=== PATIENT | female | born 1940 | race Caucasian/White ===

== ENCOUNTER 2016-12-24 10:24 | Emergency (ER) | payer MEDICARE, OTHER ==
[2016-12-24 11:24] LABS: APPEARANCE CLEAR (CLEAR); BILIRUBIN NEGATIVE (NEGATIVE); COLOR STRAW (YELLOW); GLUCOSE NEGATIVE (NEGATIVE); KETONE NEGATIVE (NEGATIVE); LEUKOCYTE ESTERASE 1+ (NEGATIVE); NITRITE NEGATIVE (NEGATIVE); PROTEIN NEGATIVE (NEGATIVE); SPECIFIC GRAVITY 1.015 (1.005-1.020); UROBILINOGEN NORMAL (NORMAL)
[2016-12-24 11:25] LABS: BACTERIA FEW /hpf (NONE SEEN); EPITHELIAL CELLS 0-5 /hpf (0-5); RED CELLS - URINE NONE SEEN /hpf (0-5); WHITE CELLS - URINE 0-5 /hpf (0-5)
[2016-12-24 11:53] LABS: BASOPHILS 0.2 % (0.0-2.0); EOSINOPHILS 2.4 % (0-7); HEMATOCRIT 34.6 % (36.0-48.0); HEMOGLOBIN 11.1 g/dL (12-16); IMMATURE GRANULOCYTES 0.2 % (0-5); LYMPHOCYTES 35.5 % (15-50); MCH 30.3 pg (26.0-34.0); MCHC 32.1 g/dL (31.0-37.0); MCV 94.5 fL (80.0-100.0); MONOCYTES 7.9 % (2-11); NEUTROPHILS 53.8 % (40-80); PLATELET COUNT 266 10x3/uL (130-400); RBC 3.66 10x6/uL (4.00-5.40); RDW 13.3 % (11.5-14.5); WBC 6.6 10x3/uL (4.8-10.8)
[2016-12-24 12:05] LABS: ALBUMIN 3.5 g/dL (3.4-5.0); BILIRUBIN - TOTAL 0.41 mg/dL (0.2-1.3); CALCIUM 8.4 mg/dL (8.5-10.1); CREATININE - SERUM 1.3 mg/dL (0.6-1.3); PROTEIN - SERUM 6.8 g/dL (6.4-8.2)
[2016-12-24 12:15] LABS: THYROID STIMULATING HORMONE 1.76 uIU/mL (0.36-3.74)
== END 2016-12-24 12:14 | disposition home or self-care (01) ==
LOC: D.ER 10:24
PROVIDERS: Emergency Medicine; Physician Assistant Medical
DX: R68.83 Chills (without fever) (principal); I73.9 Peripheral vascular disease, unspecified; M51.26 Other intervertebral disc displacement, lumbar region; F41.9 Anxiety disorder, unspecified; F32.9 Major depressive disorder, single episode, unspecified

== ENCOUNTER 2016-12-26 07:42 | Emergency (ER) | payer MEDICARE, OTHER ==
[2016-12-26] MEDS ORDERED: SYNTHROID75 MCG PO (13:12)
[2016-12-26] MEDS ORDERED: TRIMETHOPRIM100 MG PO (13:13)
[2016-12-26 15:38] VITALS: BMI 29.8
== END 2016-12-26 10:08 | disposition other institution (70) ==
LOC: D.ER 07:42
DX: F03.91 Unspecified dementia, unspecified severity, with behavioral disturbance (principal); F32.9 Major depressive disorder, single episode, unspecified; G47.30 Sleep apnea, unspecified; I73.9 Peripheral vascular disease, unspecified

== ENCOUNTER 2016-12-26 10:15 | Inpatient (IN) | payer MEDICARE, OTHER ==
[~2016-12-26] VITALS: Ht 160 cm; Wt 76.5 kg
--- NOTE | 2016-12-26 10:30 | NUR ---
Arrived to floor( from home with spouse to ED.) from ED per W/C, alert and oriented to name,place and time, althoug she kept forgetting the year. patient states she is here because " I keep having chills, It starts at 4:30 in the morning and I have to walk around until around 11:00 to warm up." Patient spouse present, states that patient had packed up here clothing yesterday and " taking a trip." she then attempted to drive to [place]. States history of dementia" but, do I look and act like I have Dementia, I'm on my computer everyday." Consent forms signed, cooperative with assessment. Ambulatory. Admission handbook given to family with intrustions given. All questions answered and spouse verbalized understanding of information.
[2016-12-26 12:42] LABS: APPEARANCE CLEAR (CLEAR); BILIRUBIN NEGATIVE (NEGATIVE); COLOR YELLOW (YELLOW); GLUCOSE NEGATIVE (NEGATIVE); KETONE SMALL mg/dL (NEGATIVE); LEUKOCYTE ESTERASE 1+ (NEGATIVE); NITRITE NEGATIVE (NEGATIVE); PROTEIN NEGATIVE (NEGATIVE); SPECIFIC GRAVITY 1.015 (1.005-1.020); UROBILINOGEN NORMAL (NORMAL)
[2016-12-26 12:44] LABS: BACTERIA FEW /hpf (NONE SEEN); EPITHELIAL CELLS 0-5 /hpf (0-5); RED CELLS - URINE 0-5 /hpf (0-5)
[2016-12-26] MEDS ORDERED: SYNTHROID75 MCG PO (13:12)
[2016-12-26] MEDS ORDERED: TRIMETHOPRIM100 MG PO (13:13)
--- NOTE | 2016-12-26 15:30 | NUR ---
Patient was seen per MD, and has requested to be discharged home. Spouse here to pick her up. Discharge instructions given to follow up with PCP, patient and spouse verbalized they have medications at home. Discharged without any incident.
[2016-12-26 15:38] VITALS: BP 126/75; Ht 160 cm; Wt 76.5 kg
--- NOTE | 2016-12-27 14:14 | PSY ---
PATIENT NAME:DEVIN MABRY MEDICAL RECORD: [id number] : 40 LOCATION:[facility] ADMISSION DATE: 12/26/16 ACCOUNT: [id number] PSYCHIATRIC EVALUATION DATE OF EVALUATION: 12/26/16 IDENTIFYING DATA: The patient is 76 years old and she is admitted to the hospital on a voluntary basis. CHIEF COMPLAINT: Agitation. HISTORY OF PRESENT ILLNESS: The patient was brought to the hospital because of some agitated and confused behavior at home. She says she came to the hospital because her feet were cold. The patient was seen in the Emergency Room and apparently has an established diagnosis of dementia, which she strongly refused and apparently she has had some trouble with some intermittent agitation at home which she also strongly refused. She insists that she has been lied to or more accurately mislead about where she was going and that she never would have agreed to come to this kind of facility had she known it was going to be this. She was told that it was a behavioral unit that she was being admitted to, but she apparently did not understand that there were locked doors, restricted visitation hours and requirements to stay in the day room and participate in activities along with no phone or television in her room. She says that this is completely unacceptable and that she demands to leave the hospital. She denies that she would seek to harm herself or others. She denies psychotic symptoms. PAST MEDICAL HISTORY: Significant for hypothyroidism. PAST PSYCHIATRIC HISTORY: Significant for an established diagnosis of dementia from the [facility]. FAMILY HISTORY: Unknown. SOCIAL HISTORY: The patient is . Apparently, she worked for the [employer]. 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 The patient is and has adult children. She does not want to be here as mentioned above. She denies substance abuse. MENTAL STATUS EXAMINATION: With some difficulty, the patient was found to be oriented to person, place and somewhat to time and situation. Her mood is anxious. Her affect is constricted. Thought processes are circumstantial. Her memory, concentration and abstraction abilities are at least mildly impaired, probably moderately impaired and she denies any active intent to harm herself or others as well as overt psychotic symptoms. ASSESSMENT: AXIS I: Dementia, probably Alzheimer's in nature. AXIS II: None. AXIS III: Hypothyroidism. AXIS IV: Moderate stressors. AXIS V: Global assessment of functioning is 40. PLAN: At this time, the patient has good preservation of verbal skills. She is not as intact as she initially presents. I would like to have her tested by Dr. Gabriela Cochran and would like to start her on some cholinesterase inhibiting medications, but she does not want to do this. She wants to be treated on an outpatient basis. Burke specifically excludes dementia as a diagnosis under which I can involuntarily hospitalize her. She does not meet the criteria for involuntary hospitalization and that she is not homicidal or suicidal, and is not gravely disabled except from the fact that she needs supervision. Once again, an exclusionary criteria for the ____. At this point, even though I would like her to stay in the hospital, I have no alternative, but to release her unless her family is able to get guardianship or produce guardianship papers. If they do produce guardianship papers I will be happy to keep her or readmit her, but at this point, she cannot be hospitalized here and treated involuntarily because of the circumstances mentioned above. She is willing to go to outpatient appointments, I think that is appropriate. Apparently, the family has brought her to the Emergency Room several times in the past few weeks because of the confused behavior at home. I think the situation is problematic, but again I have no basis on which I can legitimately keep her here if she does not want to stay. TRANSINT:[id number] Voice Confirmation ID: [id number] DOCUMENT ID: [id number] MIKI MORALES MD at 1414 CC: [id number] DICTATION DATE: 12/26/161424 COLLAR BASTER: 12/26/16 1524 DIS IN 12/26/16 [id number] [place] [address]
--- NOTE | 2016-12-29 12:38 | DS ---
PATIENT:DEVIN MABRY :40 MEDICAL RECORD: [id number] DISCHARGE SUMMARY ADMISSION DATE: 12/26/16 DISCHARGE DATE: 12/26/16 Psychiatric Discharge Summary IDENTIFYING DATA: The patient is 76 years old and she was admitted to the hospital on a voluntary basis from the Emergency Room. The patient had come to the Emergency Room because of some agitation and confusion. She said that she was brought to the Emergency Room because her feet were cold. The patient was in the Emergency Room and known to have an established diagnosis of dementia, which she strongly refused and the family was indicating that she was having intermittent agitation, which she also strongly denied. The patient was subsequently referred to the behavioral unit for evaluation of these behavior problems, but when she arrived here and saw me, she demanded to go home. HOSPITAL COURSE: The patient was admitted to the hospital and partially evaluated from both medical, psychological, and social standpoint. The patient indicated that she was not told this was a behavioral unit, which is not true. She said she was not told that she would not have a television in her room and that the doors would be locked and that visitation would be restricted and that she would be required to spend most of her time in the day room, engaged in activities as opposed to being in her room in bed. That may well be true. The patient denied that she would seek to harm herself or others. She was insistent that she be released and could not be convinced to stay on her own. The patient was subsequently discharged. 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 AXIS II: None. AXIS III: Hypothyroidism. AXIS IV: Moderate stressors. AXIS V: Global assessment of functioning is 45. PLAN: At the time of discharge, the patient was in good behavioral control. She was not having any active thoughts of harming herself or others. She was generally tolerating her medications well. Unfortunately, she was not willing to stay and be fully evaluated. She is willing to go to outpatient appointments for this and she and the family were assisted in this. Also, her who is an attorney lawyer understands the commitment laws and he is going to try to obtain guardianship and if he can do that, I would be happy to readmit her and complete her evaluation. At this point, all I can say is she does have cognitive impairment, it appears to be Alzheimer's and that she does not meet criteria for an involuntary commitment. TRANSINT:[id number] Voice Confirmation ID: [id number] DOCUMENT ID: [id number] DISCHARGE SUMMARY REPORT [id number] DEVIN MABRY PETER MD at 1238 CC: [id number] DICTATION DATE: 12/28/16 1400 PRECINCT POLICE CAPTAIN: 12/29/16 0106 DIS IN 12/26/16 [address] [place] [address]
== END 2016-12-26 15:30 | disposition home or self-care (01) | DRG 57 ==
LOC: D.PSYCH 10:15
PROVIDERS: ADMIT Psychiatry & Neurology Psychiatry
DX: G30.1 Alzheimer's disease with late onset (principal); F02.80 Dementia in other diseases classified elsewhere, unspecified severity, without behavioral disturbance, psychotic disturbance, mood disturbance, and anxiety; E03.9 Hypothyroidism, unspecified

== ENCOUNTER 2018-03-19 16:57 | Inpatient (IN) | payer MEDICARE, OTHER ==
[~2018-03-19] VITALS: Ht 162.6 cm; Wt 75.0 kg
--- NOTE | ~2018-03-19 | PN ---
PATIENT:DEVIN MABRY MEDICAL RECORD: [id number] LOCATION:[facility]112 ADMISSION DATE: 03/19/18 PROGRESS NOTE DATE OF SERVICE: 03/22/2018 SUBJECTIVE: The patient's case was discussed with staff. She has no new complaint. OBJECTIVE: The patient denies intent to harm herself or others. She tolerates her medicines well. She has severe short-term memory impairment. The patient was fairly agitated last night and required some p.r.n. medication. She has no recollection of these events. I am going to give her a low dose of trazodone to assist with sleep consolidation. I strongly suspect that she is going to need placement as the sundowning and confused agitated behavior is not something I would anticipate her would be able to handle. TRANSINT:[id number] Voice Confirmation ID: [id number] DOCUMENT ID: [id number] MIKI MORALES MD at 1203 CC: [id number] DICTATION DATE: 03/22/18 1338 DRIVER SALES: 03/22/18 1357 ADM IN [facility] [address] [place] [address]
--- NOTE | ~2018-03-19 | PN ---
PATIENT:DEVIN MABRY MEDICAL RECORD: [id number] LOCATION:[facility]112 ADMISSION DATE: 03/19/18 PROGRESS NOTE DATE OF SERVICE: 03/26/2018 SUBJECTIVE: The patient's case was discussed with staff. She has no new complaint. OBJECTIVE: The patient denies intent to harm herself or others. She has been in good behavioral control. ASSESSMENT: No change in diagnoses. PLAN: The patient's Prozac is going to be discontinued. I am going to increase the dose of Effexor for its antidepressant effect. The patient scored a 13/30 on the mental status testing indicating a severe range of impairment. This is lower than I would have expected as her social skills and verbal skills are strangely preserved. I am going to recommend the family take her to the [facility] for adult day care. There will also be recommendations regarding safety measures around the house. TRANSINT:[id number] Voice Confirmation ID: [id number] DOCUMENT ID: [id number] MIKI MORALES MD at 1019 CC: [id number] DICTATION DATE: 03/26/18 1244 ACCOUNTING OFFICE MANAGER: 03/26/18 1321 ADM IN [facility] [address] [place] [address]
--- NOTE | ~2018-03-19 | PN ---
PATIENT:DEVIN MABRY MEDICAL RECORD: [id number] LOCATION:[facility]112 ADMISSION DATE: 03/19/18 PROGRESS NOTE DATE OF SERVICE: 03/21/2018 SUBJECTIVE: The patient's case was discussed with staff. She has no new complaint. OBJECTIVE: The patient is oriented to person and place and somewhat to time and situation. Her mood is euthymic. Her affect is appropriate. Thought processes are circumstantial. Memory, concentration and abstraction abilities are mildly impaired and she denies any intent to harm herself or others as well as overt psychotic symptoms. ASSETS: Supportive family members. LIABILITIES: Limited insight. DIAGNOSTIC IMPRESSION: Senile dementia of the Alzheimer's type with behavioral disturbances. PLAN: The patient will be started on Namenda at a dose of 2.5 mg twice daily. Namenda is being used to treat her underlying cognitive impairment. She will be monitored for clinical changes associated with its use. Her long-term prognosis is guarded. TRANSINT:[id number] Voice Confirmation ID: [id number] DOCUMENT ID: [id number] MIKI MORALES MD at 1327 CC: [id number] DICTATION DATE: 03/21/18 1257 RODENT EXTERMINATOR: 03/21/18 1316 ADM IN [address] [place] [address]
--- NOTE | ~2018-03-19 | PN ---
PATIENT:DEVIN MABRY MEDICAL RECORD: [id number] LOCATION:[facility]112 ADMISSION DATE: 03/19/18 PROGRESS NOTE DATE OF SERVICE: 03/30/2018 SUBJECTIVE: The patient's case was discussed with staff. She has no new complaint. OBJECTIVE: The patient denies intent to harm herself or others. She generally tolerates her medicines well. She is significantly impaired. 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 ASSESSMENT: No change in diagnoses. PLAN: Current medicines have been reviewed and will be maintained. Her long-term prognosis is guarded. Plans are being made for her discharge. These include the senior proofing the house and making arrangements for her to go to the caring place. TRANSINT:[id number] Voice Confirmation ID: [id number] DOCUMENT ID: [id number] MIKI MORALES MD at 2007 CC: [id number] DICTATION DATE: 03/30/18 1209 ULTRASONIC SEAMING MACHINE OPERATOR: 03/30/18 1229 ADM IN [place] [address] [place] [id number]
--- NOTE | ~2018-03-19 | PN ---
PATIENT:DEVIN MABRY MEDICAL RECORD: [id number] LOCATION:[facility]112 ADMISSION DATE: 03/19/18 PROGRESS NOTE DATE OF SERVICE: 03/27/2018 SUBJECTIVE: The patient's case was discussed with staff. She has no new complaint. OBJECTIVE: The patient is in good behavioral control with limited insight about her condition. She generally tolerates her medicines well. She has had some paranoid thoughts that are clearly delusional. She has no recollection of these when I mentioned them to her. ASSESSMENT: No change in diagnoses. PLAN: Current medicines and therapies have been reviewed and will be maintained. Long-term prognosis is guarded. TRANSINT:[id number] Voice Confirmation ID: [id number] DOCUMENT ID: [id number] MIKI MORALES MD at 1301 CC: [id number] DICTATION DATE: 03/27/18 1354 LABORER STEEL HANDLING: 03/27/18 1402 ADM IN [place] [place] [address]
--- NOTE | ~2018-03-19 | PSY ---
PATIENT NAME:DEVIN MABRY MEDICAL RECORD: [id number] : 40 LOCATION:[facility]9 ADMISSION DATE: 03/19/18 ACCOUNT: [id number] PSYCHIATRIC EVALUATION DATE OF EVALUATION: 03/20/18 IDENTIFYING DATA: The patient is 77 years old and she is admitted to the hospital on a voluntary basis. CHIEF COMPLAINT: None. HISTORY OF PRESENT ILLNESS: The patient is a very nice elderly woman with a history of dementia. She has had increasing confusion in recent weeks and has become increasingly difficult to redirect. The problem became so acute that yesterday, the patient's took her to the Emergency Room where she was evaluated and admitted to the behavioral unit. The patient has little or no recollection of what happened. She is very polite and outgoing and talkative, but it is all a front to cover her confusion. She becomes easily flustered when asked questions that require some memory and actually becomes a little angry when asked about questions of orientation involving date, time, and so forth. PAST MEDICAL HISTORY: Significant for hypothyroidism and hyperlipidemia. PAST PSYCHIATRIC HISTORY: Significant for dementia. FAMILY HISTORY: Unknown. SOCIAL HISTORY: The patient is and has 1 adult son and no grandchildren. She is a nondrinker and nonsmoker. 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 She has no history of drug or alcohol abuse. MENTAL STATUS EXAMINATION: The patient is awake, alert and oriented to person and place, but not to time or situation. In fact, her orientation to place is intermittent, as apparently earlier today she believes she was in [place] and was wanting to get back to [place]. Her mood is flat. Her affect is appropriate. Thought processes are disorganized. Short term memory is severely impaired. Long-term memory appears to be at least mildly impaired. She is concrete to abstraction. Her concentration is fair. She denies any intent to harm herself or others and denies any psychotic symptoms. ASSETS: Supportive family members. LIABILITIES: Limited insight. DIAGNOSTIC IMPRESSION: AXIS I: Senile dementia of the Alzheimer's type with behavioral disturbances. AXIS II: None. AXIS III: 1. Hypothyroidism. 2. Hyperlipidemia. AXIS IV: Moderate stressors. AXIS V: Global assessment of functioning is 30. PLAN: At this time, the patient is admitted to the hospital for a comprehensive medical, psychological, and social evaluation. She will be treated with both mood stabilizing and memory enhancing medications. Her long-term prognosis is guarded. TRANSINT:[id number] Voice Confirmation ID: [id number] DOCUMENT ID: [id number] MIKI MORALES MD at 1249 CC: [id number] DICTATION DATE: 03/20/18 1519 TREATING ENGINEER HELPER: 03/20/18 1533 ADM IN [place] [address] [place] [id number]
--- NOTE | ~2018-03-19 | PN ---
PATIENT:DEVIN MABRY MEDICAL RECORD: [id number] LOCATION:[facility] German112 ADMISSION DATE: 03/19/18 PROGRESS NOTE DATE OF SERVICE: 04/03/2018 SUBJECTIVE: The patient's case was discussed with staff. She has no new complaint. OBJECTIVE: The patient is in good behavioral control with limited insight about her condition. ASSESSMENT: No change in diagnoses. PLAN: Supportive and educational interventions were made. The patient is not acutely dangerous and can be transitioned out of the hospital today. Followup will be with her primary care physician. TRANSINT:[id number] Voice Confirmation ID: [id number] DOCUMENT ID: [id number] MIKI MORALES MD at 1236 CC: [id number] DICTATION DATE: 04/03/18 1319 COLORING ROOM MAN: 04/03/18 1354 DIS IN 04/03/18 [address] [place] [address]
--- NOTE | ~2018-03-19 | PN ---
PATIENT:DEVIN MABRY MEDICAL RECORD: [id number] LOCATION:[facility]112 ADMISSION DATE: 03/19/18 PROGRESS NOTE DATE OF SERVICE: 04/01/2018 SUBJECTIVE: The patient's case was discussed with staff. She has no new complaint. OBJECTIVE: The patient is in good behavioral control with limited insight about her condition. She tolerates her medicines well. ASSESSMENT: No change in diagnoses. PLAN: I anticipate the patient can be transitioned out of the hospital soon. Her long-term prognosis is guarded. TRANSINT:[id number] Voice Confirmation ID: [id number] DOCUMENT ID: [id number] MIKI MORALES MD at 1407 CC: [id number] DICTATION DATE: 04/01/18 1138 EXTENSION DIVISION DIRECTOR: 04/01/18 1438 ADM IN [facility] [address] [place] [address]
--- NOTE | ~2018-03-19 | DS ---
PATIENT:DEVIN MABRY :40 MEDICAL RECORD: [id number] DISCHARGE SUMMARY ADMISSION DATE: 03/19/18 DISCHARGE DATE: 04/03/18 IDENTIFYING DATA: The patient is 77 years old and she was admitted to the hospital on a voluntary basis. The patient has an established diagnosis of dementia. She had become increasingly confused in recent weeks and was difficult to redirect. The problem had become so acute that her took her to the Emergency Room to be evaluated. The patient was very polite and cooperative, but had no recollection of her agitation or confusion. HOSPITAL COURSE: The patient was admitted to the hospital and fully evaluated from both a medical, psychological, and social standpoint. She was treated with both mood stabilizing and memory enhancing medications. She did show improvement through the course of her hospitalization and was subsequently discharged home. DISCHARGE DIAGNOSES: AXIS I: Senile dementia of the Alzheimer's type with behavioral disturbances. AXIS II: None. AXIS III: Hypothyroidism, hyperlipidemia. AXIS IV: Moderate stressors. AXIS V: Global Assessment of Functioning is 35. PLAN: At the time of discharge, the patient was in good behavioral control and had no evidence of acute or direct dangerousness to herself or others. She was tolerating her medications well. Followup is to be with her primary care physician. Her long-term prognosis is guarded. TRANSINT:[id number] Voice Confirmation ID: [id number] DOCUMENT ID: [id number] MIKI MORALES MD at 1521 CC: [id number] DICTATION DATE: 04/05/18 1345 FORGE HEATER: 04/05/187 DIS IN 04/03/18 [address] [place] [address]
--- NOTE | ~2018-03-19 | PN ---
PATIENT:DEVIN MABRY MEDICAL RECORD: [id number] LOCATION:[facility]112 ADMISSION DATE: 03/19/18 PROGRESS NOTE DATE OF SERVICE: 03/31/2018 SUBJECTIVE: The patient's case was discussed with staff. She has no new complaint. OBJECTIVE: The patient is in good behavioral control with limited insight about her condition. She tolerates her medicines well. ASSESSMENT: No change in diagnoses. PLAN: Supportive and educational interventions were made. Skilled Nursing prognosis is guarded. TRANSINT:[id number] Voice Confirmation ID: [id number] DOCUMENT ID: [id number] MIKI MORALES MD at 1101 CC: [id number] DICTATION DATE: 03/31/18 1201 RADIAL DRILL OPERATOR FOR PLASTIC: 03/31/18 2258 ADM IN [place] [address] [place] [address]
--- NOTE | ~2018-03-19 | PN ---
PATIENT:DEVIN MABRY MEDICAL RECORD: [id number] LOCATION:[facility]112 ADMISSION DATE: 03/19/18 PROGRESS NOTE DATE OF SERVICE: 03/28/2018 SUBJECTIVE: The patient's case was discussed with staff. She has no new complaint. OBJECTIVE: The patient is in good behavioral control with limited insight about her condition. She tolerates her medicines well. ASSESSMENT: No change in diagnoses. PLAN: The patient is better today. If this level of improvement is maintained, I anticipate she can be transitioned out of the hospital soon. TRANSINT:[id number] Voice Confirmation ID: [id number] DOCUMENT ID: [id number] MIKI MORALES MD at 1244 CC: [id number] DICTATION DATE: 03/28/18 1313 NURSE MIDWIFE: 03/28/18 1317 ADM IN [place] [address] [place] [address]
--- NOTE | ~2018-03-19 | PN ---
PATIENT:DEVIN MABRY MEDICAL RECORD: [id number] LOCATION:[facility]112 ADMISSION DATE: 03/19/18 PROGRESS NOTE DATE OF SERVICE: 04/02/2018 SUBJECTIVE: The patient's case was discussed with staff. She has no new complaint. OBJECTIVE: The patient is in good behavioral control with limited insight about her condition. She tolerates her medicines well. ASSESSMENT: No change in diagnoses. PLAN: Brief supportive and educational interventions were made. Long-term prognosis is guarded. I anticipate she can be transitioned out of the hospital tomorrow if this level of improvement is maintained. TRANSINT:[id number] Voice Confirmation ID: [id number] DOCUMENT ID: [id number] MIKI MORALES MD at 1236 CC: [id number] DICTATION DATE: 04/02/18 1444 TRAVEL ACCOMMODATIONS RATER: 04/02/18 1603 DIS IN 04/03/18 [id number] [place] [address]
--- NOTE | ~2018-03-19 | PN ---
PATIENT:EDVIN MABRY MEDICAL RECORD: [id number] LOCATION:[facility]112 ADMISSION DATE: 03/19/18 PROGRESS NOTE DATE OF SERVICE: 03/23/2018 SUBJECTIVE: No new complaint. OBJECTIVE: The patient is very pleasant on approach. She greets the examiner warmly. Affect is bland and pleasant. Speech is fairly fluent. Content of thought is negative for overt psychosis. Sensorium shows no change. ASSESSMENT: No change in diagnosis. PLAN: 1. Continue current medication. 2. Continue supportive therapy. TRANSINT:[id number] Voice Confirmation ID: [id number] DOCUMENT ID: [id number] DENITA WATSON III, MD at 0530 CC: [id number] DICTATION DATE: 03/23/18 1200 ARMHOLE BASTER HAND: 03/23/18 1304 ADM IN [place] [address] [place] [address]
--- NOTE | ~2018-03-19 | PN ---
PATIENT:DEVIN MABRY MEDICAL RECORD: [id number] LOCATION:R[facility]112 ADMISSION DATE: 03/19/18 PROGRESS NOTE DATE OF SERVICE: 03/29/2018 SUBJECTIVE: The patient's case was discussed with staff. She has no new complaint. OBJECTIVE: The patient denies intent to harm herself or others. She is tolerating her medicines well. She is sleeping reasonably well. ASSESSMENT: No change in diagnoses. PLAN: The patient will be maintained on current medicines, which I have reviewed. Her long-term prognosis is guarded. Supportive and educational interventions were made. TRANSINT:[id number] Voice Confirmation ID: [id number] DOCUMENT ID: [id number] MIKI MORALES MD at 1159 CC: [id number] DICTATION DATE: 03/29/18 1259 BOX COVERER HAND: 03/29/18 1314 ADM IN [place] [id number] [place] [id number]
[~2018-03-19 16:57] MED LIST: SYNTHROID75 MCG PO; TRIMETHOPRIM100 MG PO
[2018-03-19 18:08] LABS: APPEARANCE CLEAR (CLEAR); BILIRUBIN NEGATIVE (NEGATIVE); COLOR YELLOW (YELLOW); EPITHELIAL CELLS 0-5 /hpf (0-5); GLUCOSE NEGATIVE (NEGATIVE); KETONE NEGATIVE (NEGATIVE); NITRITE NEGATIVE (NEGATIVE); PROTEIN NEGATIVE (NEGATIVE); RED CELLS - URINE 0-5 /hpf (0-5); SPECIFIC GRAVITY 1.025 (1.005-1.020); UROBILINOGEN NORMAL (NORMAL)
[2018-03-19 18:09] LABS: BACTERIA MODERATE /hpf (NONE SEEN)
[2018-03-19 18:25] LABS: BASOPHILS 0.2 % (0-2); HEMATOCRIT 36.8 % (36.0-48.0); IMMATURE GRANULOCYTES 0.3 % (0-5); LYMPHOCYTES 34.4 % (15-50); MCH 30.8 pg (26.0-34.0); MCHC 32.6 g/dL (31.0-37.0); MCV 94.6 fL (80.0-100.0); MEAN PLATELET VOLUME 9.1 fL (7.4-10.4); MONOCYTES 6.4 % (2-11); NEUTROPHILS 55.7 % (40-80); PLATELET COUNT 301 10x3/uL (130-400); RBC 3.89 10x6/uL (4.00-5.40); WBC 9.4 10x3/uL (4.8-10.8)
[2018-03-19 18:47] LABS: ALBUMIN 3.7 g/dL (3.4-5.0); ANION GAP 13.7 mmol/L (8-16); BILIRUBIN - TOTAL 0.26 mg/dL (0.2-1.3); CALCIUM 8.9 mg/dL (8.5-10.1); CARBON DIOXIDE 28.4 mmol/L (21.0-32.0); CREATININE - SERUM 1.3 mg/dL (0.6-1.3); POTASSIUM - SERUM 4.1 mmol/L (3.5-5.1); PROTEIN - SERUM 7.6 g/dL (6.4-8.2)
[2018-03-19 18:57] LABS: THYROID STIMULATING HORMONE 1.03 uIU/mL (0.36-3.74)
[2018-03-20] MEDS ORDERED: PRAVASTATIN SOD10 MG PO (01:20)
[2018-03-20] MEDS ORDERED: EFFEXOR XR150 MG PO (01:21)
[2018-03-20] MEDS ORDERED: LEVOXYL88 MC1 PO (01:22)
[2018-03-20 07:53] LABS: CHOL - HDL RATIO 3.9 ratio (2.3-4.1); LDL-HDL RATIO 2.5 ratio (1.5-3.5); THYROID STIMULATING HORMONE 1.19 uIU/mL (0.36-3.74)
[2018-03-20 10:20] VITALS: BP 122/82
[2018-03-20 11:45] VITALS: BMI 28.3
[2018-03-20 22:23] VITALS: BP 173/83
[2018-03-21 07:32] LABS: RAPID PLASMA REAGIN Non Reactive (Non Reactive)
[2018-03-21 08:25] LABS: FOLATE (FOLIC ACID) - SERUM 12.5 ng/mL (>3.0)
[2018-03-21 09:45] VITALS: BP 124/72
[2018-03-21 10:21] LABS: VITAMIN D 25 HYDROXY 14.3 ng/mL (30.0-100.0)
[2018-03-21 20:05] VITALS: BP 142/77
[2018-03-22 08:42] VITALS: BP 140/79
[2018-03-22 19:21] VITALS: BP 149/74
[2018-03-23 08:34] VITALS: BP 147/78
[2018-03-23 19:47] VITALS: BP 147/59
[2018-03-24 09:10] VITALS: BP 126/84
[2018-03-24 19:18] VITALS: BP 157/82
[2018-03-25 07:00] VITALS: BP 149/78
[2018-03-25 18:56] VITALS: BP 161/79
[2018-03-26 07:00] VITALS: BP 164/76
[2018-03-26 19:43] VITALS: BP 164/87
[2018-03-27 21:16] VITALS: BP 151/84
[2018-03-28 10:40] VITALS: BP 188/97
[2018-03-28 19:45] VITALS: BP 146/81
[2018-03-29 09:06] VITALS: BP 138/86
[2018-03-29 21:12] VITALS: BP 154/80
[2018-03-30 08:13] VITALS: BP 142/82
[2018-03-30 19:30] VITALS: BP 124/58
[2018-03-31 10:34] VITALS: BP 156/62
[2018-03-31 20:46] VITALS: BP 152/77
[2018-04-01 07:00] VITALS: BP 125/90
[2018-04-01 18:45] VITALS: BP 143/86
[2018-04-02 07:00] VITALS: BP 145/65
[2018-04-02] MEDS ORDERED: NAMENDA5 MG PO (14:42)
[2018-04-02] MEDS ORDERED: PERPHENAZINE2 MG PO (14:42)
[2018-04-02] MEDS ORDERED: TRAZODONE HCL50 MG PO (14:42)
[2018-04-02 20:31] VITALS: BP 156/74
[2018-04-03 09:40] VITALS: BP 146/89
[2018-04-03 10:15] VITALS: Ht 162.6 cm; Wt 75.0 kg
== END 2018-04-03 11:10 | disposition home or self-care (01) | DRG 57 ==
LOC: D.ER 16:57 → D.PSYCH 20:05 → D.EDHOLD 20:05 → D.PSYCH 20:09
PROVIDERS: Physician Assistant; Psychiatry & Neurology Psychiatry
DX: G30.1 Alzheimer's disease with late onset (principal); F02.81 Dementia in other diseases classified elsewhere, unspecified severity, with behavioral disturbance; F41.8 Other specified anxiety disorders; E03.9 Hypothyroidism, unspecified; E78.5 Hyperlipidemia, unspecified; E11.9 Type 2 diabetes mellitus without complications; R82.71 Bacteriuria

== ENCOUNTER 2018-08-07 22:58 | Inpatient (IN) | payer MEDICARE, OTHER ==
[~2018-08-07] VITALS: Ht 157.5 cm; Wt 77.2 kg
--- NOTE | ~2018-08-07 | PN ---
PATIENT:DEVIN MABRY MEDICAL RECORD: [id number] LOCATION:[facility] ADMISSION DATE: 08/08/18 PROGRESS NOTE DATE OF SERVICE: 08/25/2018 SUBJECTIVE: The patient's case was discussed with staff. She has no new complaint. OBJECTIVE: The patient seems a little sedated to me. I talked to a couple of the nurses' aids and the charge nurse, who said no, but I think she is sedated. It has been 4 days since she has had a p.r.n. for agitated behavior. She is significantly impaired cognitively. ASSESSMENT: No change in diagnoses. PLAN: The patient will be treated with current medicines, but I am going to reduce the dose of the Klonopin slightly. TRANSINT:[id number] Voice Confirmation ID: [id number] DOCUMENT ID: [id number] MIKI MORALES MD at 1241 CC: [id number] DICTATION DATE: 08/25/18 1432 MECHANICAL APPLICATIONS ENGINEER: 08/25/18 1457 ADM IN [address] [place] [address]
--- NOTE | ~2018-08-07 | PN ---
PATIENT:DEVIN MABRY MEDICAL RECORD: [id number] LOCATION:[facility] ADMISSION DATE: 08/08/18 PROGRESS NOTE DATE OF SERVICE: 08/20/2018 SUBJECTIVE: The patient's case was discussed with staff. She has no new complaint. OBJECTIVE: The patient continues to receive p.r.n. medications for agitation. I did increase her Trilafon yesterday. I am going to put her on a scheduled dose of Klonopin today to assist with her anxiety. ASSESSMENT: No change in diagnoses. PLAN: As mentioned above, the patient will begin receiving a scheduled dose of Klonopin. She will be monitored for sedation associated with it. Her is still unsure about where he is going to care for her. He is concerned about the financial impact, which is reasonable, although he is having a great deal of guilt about such feelings. At the same time, he has shown twice that he is really not able to handle her at home. TRANSINT:[id number] Voice Confirmation ID: [id number] DOCUMENT ID: [id number] MIKI MORALES MD at 1223 CC: [id number] DICTATION DATE: 08/20/18 1446 ROUTE DELIVERY MANAGER: 08/20/18 1640 ADM IN [id number] [place] [address]
--- NOTE | ~2018-08-07 | PN ---
PATIENT:DEVIN MABRY MEDICAL RECORD: [id number] LOCATION:[facility] ADMISSION DATE: 08/08/18 PROGRESS NOTE DATE OF SERVICE: 09/01/2018 SUBJECTIVE: The patient's case was discussed with staff. She has no new complaint. OBJECTIVE: The patient ate reasonably well and slept reasonably well. She did not require p.r.n. medication last night. ASSESSMENT: No change in diagnoses. PLAN: Current medicines have been reviewed. She will be maintained on them and I anticipate that she can be transitioned out of the hospital soon. TRANSINT:[id number] Voice Confirmation ID: [id number] DOCUMENT ID: [id number] MIKI MORALES MD at 1017 CC: [id number] DICTATION DATE: 09/01/18 1105 COARSE WIRE DRAWER: 09/01/18 [address] [facility] [address] [place] [address]
--- NOTE | ~2018-08-07 | PN ---
PATIENT:DEVIN MABRY MEDICAL RECORD: [id number] LOCATION:[facility] ADMISSION DATE: 08/08/18 PROGRESS NOTE DATE OF SERVICE: 08/17/2018 SUBJECTIVE: The patient's case was discussed with staff. She has no new complaint. OBJECTIVE: The patient is in good behavioral control with limited insight about her condition. She generally tolerates her medicines well. ASSESSMENT: No change in diagnoses. PLAN: Current medicines have been reviewed and will be maintained. Her long-term prognosis is guarded. The is now considering a snf or more accurately he has been considering it this whole hospitalization, but he tends to waffle back and forth. I understand this is a very difficult decision, but I really do not think he is capable of managing her and her behaviors at home. TRANSINT:[id number] Voice Confirmation ID: [id number] DOCUMENT ID: [id number] MIKI MORALES MD at 0926 CC: [id number] DICTATION DATE: 08/17/18 1040 WASH HELPER: 08/17/18 1057 ADM IN [facility] [address] [place] [address]
--- NOTE | ~2018-08-07 | PN ---
PATIENT:DEVIN MABRY MEDICAL RECORD: [id number] LOCATION:[facility] ADMISSION DATE: 08/08/18 PROGRESS NOTE DATE OF SERVICE: 08/15/2018 SUBJECTIVE: The patient's case was discussed with staff. She has no new complaint. OBJECTIVE: The patient denies intent to harm herself or others. She has been much calmer with the addition of a low dose of Ativan. ASSESSMENT: No change in diagnoses. PLAN: The patient did not require any p.r.n. medication yesterday. She is very appropriate for shelter and I have concerns about the ability of her to manage her at home. There will be a family meeting to discuss this issue. TRANSINT:[id number] Voice Confirmation ID: [id number] DOCUMENT ID: [id number] MIKI MORALES MD at 0951 CC: [id number] DICTATION DATE: 08/15/18913 ANTISUBMARINE WEAPONS OFFICER: 08/15/18 1156 ADM IN [facility] [address] [place] [address]
--- NOTE | ~2018-08-07 | PN ---
PATIENT:DEVIN MABRY MEDICAL RECORD: [id number] LOCATION:[facility] ADMISSION DATE: 08/08/18 PROGRESS NOTE DATE OF SERVICE: 08/14/2018 SUBJECTIVE: The patient's case was discussed with staff. She has no new complaint. OBJECTIVE: The patient is in good behavioral control with limited insight about her condition. She does tolerate her medicines well. ASSESSMENT: No change in diagnoses. PLAN: The patient is significantly confused. She apparently does not feel well. She has had a chest x-ray, which shows some chronic old changes, but no evidence of an acute process. She has been prescribed a decongestant. Her behavior has been acceptable today, but I suspect that is not really related to an improvement in her underlying behavior problem, but more associated with the fact that she just simply does not feel well. TRANSINT:[id number] Voice Confirmation ID: [id number] DOCUMENT ID: [id number] MIKI MORALES MD at 0846 CC: [id number] DICTATION DATE: 08/14/18 1428 GROUP COUNSELOR: 08/14/18 1434 ADM IN [facility] [address] [place] [address]
--- NOTE | ~2018-08-07 | PN ---
PATIENT:DEVIN MABRY MEDICAL RECORD: [id number] LOCATION:[facility] ADMISSION DATE: 08/08/18 PROGRESS NOTE DATE OF SERVICE: 09/03/2018 SUBJECTIVE: The patient's case was discussed with staff. She has no new complaint. OBJECTIVE: The patient is in good behavioral control. She has limited insight about her condition. She is tolerating her medications reasonably well. She does have some agitation at times, but seems to be more redirectable than she previously has been. ASSESSMENT: No change in diagnoses. PLAN: Current medicines have been reviewed and will be maintained. I am going to increase her Namenda to 10 mg twice daily. Her long-term prognosis is guarded. If arrangements have been made for her outpatient treatment and housing, I am going to look at discharging her probably tomorrow. TRANSINT:[id number] Voice Confirmation ID: [id number] DOCUMENT ID: [id number] MIKI MORALES MD at 0946 CC: [id number] DICTATION DATE: 09/03/18 1034 MUCKER OPERATOR: 09/03/18 1052 ADM IN [facility] [address] [place] [address]
--- NOTE | ~2018-08-07 | PN ---
PATIENT:DEVIN MABRY MEDICAL RECORD: [id number] LOCATION:[facility] ADMISSION DATE: 08/08/18 PROGRESS NOTE DATE OF SERVICE: 08/24/2018 SUBJECTIVE: The patient's case was discussed with staff. She has no new complaint. OBJECTIVE: The patient denies intent to harm herself or others. She tolerates her medicines well. ASSESSMENT: No change in diagnoses. PLAN: Supportive and educational interventions were made. Long-term prognosis is guarded. The patient has not been p.r.n.'d for 3 days. I am going to discontinue her bedtime dose of trazodone as I no longer think it is necessary. Unless she becomes excessively sedated, I am probably going to leave the dose of her other medicines as they are. TRANSINT:[id number] Voice Confirmation ID: [id number] DOCUMENT ID: [id number] MIKI MORALES MD at 1421 CC: [id number] DICTATION DATE: 08/24/18 1235 MUSICAL INSTRUMENT SUPERVISOR: 08/24/18 1240 ADM IN [facility] [address] [place] [address]
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
--- NOTE | ~2018-08-07 | DS ---
PATIENT:DEVIN MABRY :40 MEDICAL RECORD: [id number] DISCHARGE SUMMARY ADMISSION DATE: 08/08/18 DISCHARGE DATE: 09/05/18 IDENTIFYING DATA: The patient is 78 years old and she was admitted to the hospital on a voluntary basis because of aggression. The patient has a known history of dementia and was actually treated here for similar behaviors earlier this year. She was taken home to live with her against recommendations. The patient presented to the Emergency Room this time after the was unable to handle her and she was quite aggressive. She was admitted for evaluation and treatment of these symptoms. HOSPITAL COURSE: The patient was admitted to the hospital and evaluated from both a medical, psychological, and social standpoint. She was found to be severely demented and was in severe behavioral dyscontrol. She was frequently delusional, agitated, and aggressive and throughout the course of this long hospitalization required numerous p.r.n. medications for agitation. With some difficulty combinations of various medicines were tried with either no success or untolerable side effects such as sedation being precipitated. Finally, a reasonable balance between these 2 issues was found and she was transitioned to an assisted living center. I suspect she is going to require more care than the assisted living center can provide, but at the time of discharge, she was not acutely or directly dangerous. DISCHARGE DIAGNOSES: AXIS I: Senile dementia of the Alzheimer's type with behavioral disturbances. AXIS II: None. AXIS III: Hypothyroidism, hyperlipidemia. AXIS IV: Moderate stressors. AXIS V: Global assessment of functioning is 35. PLAN: At the time of discharge, the patient was in good behavioral control. She had limited insight about her condition. She was tolerating her medicines well and followup is to be with her primary care physician. TRANSINT:[id number] Voice Confirmation ID: [id number] DOCUMENT ID: [id number] MIKI MORALES MD at 2015 CC: [id number] DICTATION DATE: 09/07/18 1050 RN MENTAL HEALTH: 09/07/18 1402 DIS IN 09/05/18 [place] [address]
--- NOTE | ~2018-08-07 | PSY ---
PATIENT NAME:DEVIN MABRY MEDICAL RECORD: [id number] : 40 LOCATION:[facility] ADMISSION DATE: 08/08/18 ACCOUNT: [id number] PSYCHIATRIC EVALUATION DATE OF EVALUATION: 08/08/18 IDENTIFYING DATA: The patient is 78 years old and she is known to me from previous clinical contact. CHIEF COMPLAINT: Aggression. HISTORY OF PRESENT ILLNESS: The patient has a known history of dementia and was treated here earlier this year. She was taken home to live with her , which was against the recommendations that we made then. The patient represents to the Emergency Room after her was unable to handle her. Apparently, she becomes quite confused at home. She does not recognize her and she tells me today that she was brought to the hospital because she was not in her house, even though everyone was telling her it was her house. She has been significantly confused and often believes her is someone, else not her . She has been aggressive and agitated with her family. PAST MEDICAL HISTORY: Significant for hypothyroidism and hyperlipidemia. PAST PSYCHIATRIC HISTORY: Significant for one previous hospitalization here about 5 months ago. The patient has no other history of psychiatric problems including substance abuse or outpatient treatment. FAMILY HISTORY: Negative for psychiatric disease by the patient's report, which is unreliable. ALLERGIES: CEPHALEXIN AND LEVOFLOXACIN. CURRENT MEDICATIONS: Include Protonix, Synthroid, Effexor, trazodone, Trilafon, Namenda, Pravachol and Macrodantin. SOCIAL HISTORY: The patient is and has one adult son and no grandchildren. She is a nondrinker and nonsmoker. 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 MENTAL STATUS EXAMINATION: The patient is awake, alert and oriented to person, but not to place, time or situation. Her mood is euthymic. Her affect is appropriate. Thought processes are disorganized with severe short-term memory impairment and at least moderate impairment of her long-term memory. She is concrete to abstraction and her concentration is fair. She denies intent to harm herself or others as well as overt psychotic symptoms. ASSETS: Supportive family members. LIABILITIES: Limited insight. DIAGNOSTIC IMPRESSION: AXIS I: Senile dementia of the Alzheimer's type with behavioral disturbances. AXIS II: None. AXIS III: Hypothyroidism, hyperlipidemia. AXIS IV: Moderate stressors. AXIS V: Global assessment of functioning is 30. PLAN: At this time, the patient is admitted to the hospital for a comprehensive medical, psychological, and social evaluation. She will be treated with both mood stabilizing and memory enhancing medications. Her long-term prognosis is guarded. TRANSINT:[id number] Voice Confirmation ID: [id number] DOCUMENT ID: [id number] MIKI MORALES MD at 1127 CC: [id number] DICTATION DATE: 08/08/18 1004 CORN SHREDDER: 08/08/18 1108 ADM IN [facility] [address] [place] [address]
--- NOTE | ~2018-08-07 | PN ---
PATIENT:DEVIN MABRY MEDICAL RECORD: [id number] LOCATION:[facility] ADMISSION DATE: 08/08/18 PROGRESS NOTE DATE OF SERVICE: 08/23/2018 SUBJECTIVE: The patient's case was discussed with staff. She has no new complaint. OBJECTIVE: The patient denies intent to harm herself or others. She generally tolerates her medicines well. She at times becomes quite confused and difficult to redirect, but she has not required a p.r.n. medication for more than 24 hours. I am encouraged by this and I think it is related to the changes I made in her previous medication regimen. If this level of improvement continues, I anticipate she can be transitioned out of the hospital soon. TRANSINT:[id number] Voice Confirmation ID: [id number] DOCUMENT ID: [id number] MIKI MORALES MD at 1212 CC: [id number] DICTATION DATE: 08/23/18 1043 YARD GENERAL CAR SUPERVISOR: 08/23/18 1102 ADM IN [place] [id number] [place] [address]
--- NOTE | ~2018-08-07 | PN ---
PATIENT:DEVIN MABRY MEDICAL RECORD: [id number] LOCATION:[facility] ADMISSION DATE: 08/08/18 PROGRESS NOTE DATE OF SERVICE: 08/27/2018 SUBJECTIVE: The patient's case was discussed with staff. She has no new complaint. OBJECTIVE: The patient had some significant owning behavior yesterday. She has no recollection of this. She is calm and cooperative today. ASSESSMENT: No change in diagnoses. PLAN: The patient's Cymbalta will be increased slightly. She has tolerated the initial dose very well. Her long-term prognosis is guarded. TRANSINT:[id number] Voice Confirmation ID: [id number] DOCUMENT ID: [id number] MIKI MORALES MD at 0924 CC: [id number] DICTATION DATE: 08/27/18 1029 NUTRITION INTERN: 08/27/18 1135 ADM IN [facility] [address] [place] [address]
--- NOTE | ~2018-08-07 | PN ---
PATIENT:DEVIN MABRY MEDICAL RECORD: [id number] LOCATION:[facility] ADMISSION DATE: 08/08/18 PROGRESS NOTE DATE OF SERVICE: 09/02/2018 SUBJECTIVE: The patient's case was discussed with staff. She has no new complaint. OBJECTIVE: The patient denies intent to harm herself or others. She generally tolerates her medicines well. ASSESSMENT: No change in diagnoses. PLAN: Supportive and educational interventions were made. Long-term prognosis is guarded. TRANSINT:[id number] Voice Confirmation ID: [id number] DOCUMENT ID: [id number] MIKI MORALES MD at 1017 CC: [id number] DICTATION DATE: 09/02/18 1256 OPHTHALMIC PATHOLOGIST: 09/02/18 1319 ADM IN [place] [address] [place] [address]
--- NOTE | ~2018-08-07 | PN ---
PATIENT:DEVIN MABRY MEDICAL RECORD: [id number] LOCATION:[facility] ADMISSION DATE: 08/08/18 PROGRESS NOTE DATE OF SERVICE: 08/31/2018 SUBJECTIVE: The patient's case was discussed with staff. She has no new complaint. OBJECTIVE: The patient denies intent to harm herself or others. She is in good behavioral control, but impaired cognitively. Last night, she was very agitated and anxious. She thought she was at taoism and wanted to go home. She did not receive p.r.n. medication, but it was once again one of those situations where she easily could have received it and it could have been easily justified. ASSESSMENT: No change in diagnoses. PLAN: Current medicines have been reviewed. I am going to increase the Cymbalta to 40 mg daily. Her long-term prognosis is guarded. It is my hope that she can be transitioned to assisted living soon. TRANSINT:[id number] Voice Confirmation ID: [id number] DOCUMENT ID: [id number] MIKI MORALES MD at 1043 CC: [id number] DICTATION DATE: 08/31/18 1005 BRAKE SPECIALIST: 08/31/18 1011 ADM IN [address] [place] [address]
--- NOTE | ~2018-08-07 | PN ---
PATIENT:DEVIN MABRY MEDICAL RECORD: [id number] LOCATION:[facility] ADMISSION DATE: 08/08/18 PROGRESS NOTE DATE OF SERVICE: 09/04/2018 SUBJECTIVE: The patient's case was discussed with staff. She has no new complaint. OBJECTIVE: The patient is more awake and alert today. She has not been significantly agitated. ASSESSMENT: No change in diagnoses. PLAN: The patient has probably reached maximum hospital benefit. It seems that I cannot do anything further to assist her with her behaviors without causing sedation. She does require constant redirection. The and son do not want her placed in a intermediate. They have arranged for assisted living. The assisted living center has evaluated her and accepted her. It is my opinion that her condition is more advanced, but it is not terribly unreasonable to allow her a chance there. There is a possibility that she could be injured, but its fairly remote and I would be happy to be mistaken about this and see her in a less restrictive environment, but it is not my recommendation. The decision to place her in assisted living instead of in a intermediate certainly does not rise to the level of contacting adult protective services and so I am going to go ahead and transition her out of the hospital tomorrow. Followup will be with her primary care physician. Her prognosis is quite guarded for the reasons I explained above. TRANSINT:[id number] Voice Confirmation ID: [id number] DOCUMENT ID: [id number] MIKI MORALES MD at 0909 CC: [id number] DICTATION DATE: 09/04/18 1001 TEAM LEAD: 09/04/18 1107 ADM IN [address] [place] [address]
--- NOTE | ~2018-08-07 | PN ---
PATIENT:DEVIN MABRY MEDICAL RECORD: [id number] LOCATION:[facility] ADMISSION DATE: 08/08/18 PROGRESS NOTE DATE OF SERVICE: 08/21/2018 SUBJECTIVE: The patient's case was discussed with staff. She has no new complaint. OBJECTIVE: The patient denies intent to harm herself or others. She generally tolerates her medicines well. ASSESSMENT: No change in diagnoses. PLAN: Current medicines have been reviewed and will be maintained. I am encouraged by the patient not receiving p.r.n. medication today. TRANSINT:[id number] Voice Confirmation ID: [id number] DOCUMENT ID: [id number] MIKI MORALES MD at 0922 CC: [id number] DICTATION DATE: 08/21/18 1241 LEARNING OFFICER: 08/21/18 1245 ADM IN [facility] [address] [place] [address]
--- NOTE | ~2018-08-07 | PN ---
PATIENT:DVEIN MABRY MEDICAL RECORD: [id number] LOCATION:[facility] ADMISSION DATE: 08/08/18 PROGRESS NOTE DATE OF SERVICE: 08/18/2018 SUBJECTIVE: The patient's case was discussed with staff. She has no new complaint. OBJECTIVE: The patient is in good behavioral control with limited insight about her condition. She does tolerate her medicines well. She was very confused last night. She did not require any p.r.n. medication, which is the first time in at least 3 or 4 days. I am encouraged by this. I think the medication she is on may be becoming effective and I have reviewed them and will maintain them as they are. TRANSINT:[id number] Voice Confirmation ID: [id number] DOCUMENT ID: [id number] MIKI MORALES MD at 1054 CC: [id number] DICTATION DATE: 08/18/18 0939 SPINNER HAND: 08/18/18 1104 ADM IN [id number] [place] [address]
--- NOTE | ~2018-08-07 | PN ---
PATIENT:DEVIN MABRY MEDICAL RECORD: [id number] LOCATION:[facility] ADMISSION DATE: 08/08/18 PROGRESS NOTE DATE OF SERVICE: 08/30/2018 SUBJECTIVE: The patient's case was discussed with staff. She has no new complaint. OBJECTIVE: The patient is actually calmer. She is not showing excessive sedation with the increase in her Klonopin. Her is looking at the [facility]. She has been told this, she became upset. She has now forgotten about it and thinks she is going home. I expect that soon, probably after the weekend, he will have made arrangements for her to go to the facility. In the meantime, I am going to maintain her current medicines, and supportive and educational interventions were made. TRANSINT:[id number] Voice Confirmation ID: [id number] DOCUMENT ID: [id number] MIKI MORALES MD at 0954 CC: [id number] DICTATION DATE: 08/30/18 1314 ELEVATED MOTORMAN: 08/30/18 1323 ADM IN [facility] [address] [place] [address]
--- NOTE | ~2018-08-07 | PN ---
PATIENT:DEVIN MABRY MEDICAL RECORD: [id number] LOCATION:[facility] ADMISSION DATE: 08/08/18 PROGRESS NOTE DATE OF SERVICE: 08/12/2018 SUBJECTIVE: The patient's case was discussed with staff. She has no new complaint. OBJECTIVE: The patient is angry. She is angry for reasons that I do not understand. I cannot understand them because she is not explaining things in a way that is coherent and understandable. She is clearly distressed, but again I cannot follow what she is upset about because it does not make any sense. ASSESSMENT: No change in diagnoses. PLAN: I am going to give the patient a low dose of Ativan to help with her underlying anxiety. She will be monitored for clinical changes associated with its use. TRANSINT:[id number] Voice Confirmation ID: [id number] DOCUMENT ID: [id number] MIKI MORALES MD at 1100 CC: [id number] DICTATION DATE: 08/12/18 1113 RUG SHAMPOOER: 08/12/18 1343 ADM IN [address] [place] [address]
--- NOTE | ~2018-08-07 | PN ---
PATIENT:DEVIN MABRY MEDICAL RECORD: [id number] LOCATION:[facility] ADMISSION DATE: 08/08/18 PROGRESS NOTE DATE OF SERVICE: 08/09/2018 SUBJECTIVE: The patient's case was discussed with staff. She has no new complaint. OBJECTIVE: The patient is in good behavioral control and has not been aggressive today. ASSESSMENT: No change in diagnoses. PLAN: The patient will be maintained on current medicines, which I have reviewed. Her long-term prognosis is guarded. Brief supportive and educational interventions were made. TRANSINT:[id number] Voice Confirmation ID: [id number] DOCUMENT ID: [id number] MIKI MORALES MD at 1612 CC: [id number] DICTATION DATE: 08/09/18 1159 CONTROL PANEL ASSEMBLER: 08/09/18 1214 ADM IN [place] [place] [address]
--- NOTE | ~2018-08-07 | PN ---
PATIENT:DEVIN MABRY MEDICAL RECORD: [id number] LOCATION:RISA German112 ADMISSION DATE: 08/08/18 PROGRESS NOTE DATE OF SERVICE: 08/26/2018 SUBJECTIVE: The patient's case was discussed with staff. She has no new complaint. OBJECTIVE: The patient was somewhat agitated yesterday. Today, she is calmer and has no recollection of what happened yesterday. The events yesterday did not result in her receiving a p.r.n., but it was somewhat close or guarded. She is tolerating her Effexor well. Her son, who works as a director social welfare in mental health, would like her changed to Cymbalta. He thinks she is primarily depressed. I do not think she is depressed, but I do have her on an antidepressant medicine. I think her primary problem is dementia. I know the family is struggling with her condition. I see no harm in giving her the Cymbalta, after all I am already giving her a different antidepressant, so I am going to change her to the Cymbalta and I do hope it helps, but that is not what I think is going to happen. I do not think it will make any difference, but I am happy to try it. TRANSINT:[id number] Voice Confirmation ID: [id number] DOCUMENT ID: [id number] MIKI MORALES MD at 0930 CC: [id number] DICTATION DATE: 08/26/18 1247 FISH RECEIVER: 08/26/18 1434 ADM IN [facility] [address] [place] [address]
--- NOTE | ~2018-08-07 | PN ---
PATIENT:DEVIN MABRY MEDICAL RECORD: [id number] LOCATION:RISA German112 ADMISSION DATE: 08/08/18 PROGRESS NOTE DATE OF SERVICE: 08/10/2018 SUBJECTIVE: The patient's case was discussed with staff. She has no new complaint. OBJECTIVE: The patient was extremely agitated and disruptive last night. She was anxious and required multiple p.r.n. doses of Haldol and Ativan. Today, she is sedated. She is arousable. She will talk to me, but I am not happy with the assessment that I can do with her under the current circumstances and I am going to just leave her medicines as they are and we will consider a change in her scheduled medicines tomorrow when she is more alert. ASSESSMENT: No change in diagnoses. PLAN: As above, current medicines will be maintained. TRANSINT:[id number] Voice Confirmation ID: [id number] DOCUMENT ID: [id number] MIKI MORALES MD at 1007 CC: [id number] DICTATION DATE: 08/10/18 1630 PRODUCT MARKETING SPECIALIST: 08/10/18 1638 ADM IN [facility] [address] [place] [address]
--- NOTE | ~2018-08-07 | PN ---
PATIENT:DEVIN MABRY MEDICAL RECORD: [id number] LOCATION:RISA German112 ADMISSION DATE: 08/08/18 PROGRESS NOTE DATE OF SERVICE: 08/22/2018 SUBJECTIVE: The patient's case was discussed with staff. She has no new complaint. OBJECTIVE: The patient denies intent to harm herself or others. She generally tolerates her medicines well. ASSESSMENT: No change in diagnoses. PLAN: The patient became very agitated yesterday afternoon. She required p.r.n. medication because she was aggressive. I am going to increase the dose of her Klonopin slightly. She will be monitored for clinical changes associated with this. Her long-term prognosis is guarded. TRANSINT:[id number] Voice Confirmation ID: [id number] DOCUMENT ID: [id number] MIKI MORALES MD at 1026 CC: [id number] DICTATION DATE: 08/22/18 1122 RESPIRATORY THERAPY MANAGER: 08/22/18 1133 ADM IN [place] [address] [place] [address]
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
--- NOTE | ~2018-08-07 | PN ---
PATIENT:DEVIN MABRY MEDICAL RECORD: [id number] LOCATION:RISA German112 ADMISSION DATE: 08/08/18 PROGRESS NOTE DATE OF SERVICE: 08/29/2018 SUBJECTIVE: The patient's case was discussed with staff. She has no new complaint. OBJECTIVE: The patient is in good behavioral control with limited insight about her condition. She is tolerating her medicines well. ASSESSMENT: No change in diagnoses. PLAN: The patient slept well last night. She is not agitated looking this evening. There may be some concerns about a developing urinary tract infection and a UA has been ordered, but not collected. Her is looking for care home placement and has narrowed it down to one of the two facilities. TRANSINT:[id number] Voice Confirmation ID: [id number] DOCUMENT ID: [id number] MIKI MORALES MD at 1254 CC: [id number] DICTATION DATE: 08/29/18 1749 TECHNICAL CONSULTANT: 08/29/18 1901 ADM IN [facility] [address] [place] [address]
--- NOTE | ~2018-08-07 | PN ---
PATIENT:DEVIN MABRY MEDICAL RECORD: [id number] LOCATION:R[facility] German112 ADMISSION DATE: 08/08/18 PROGRESS NOTE DATE OF SERVICE: 08/11/2018 SUBJECTIVE: The patient's case was discussed with staff. She has no new complaint. OBJECTIVE: The patient is in good behavioral control with limited insight about her condition. She generally tolerates her medicines well. She was not significantly agitated last night. She is much more awake and alert today. I am going to maintain her current medicines today and we will reassess her situation tomorrow. TRANSINT:[id number] Voice Confirmation ID: [id number] DOCUMENT ID: [id number] MIKI MORALES MD at 1107 CC: [id number] DICTATION DATE: 08/11/18 1023 SUPERVISORY LIFEGUARD: 08/11/18 1225 ADM IN [facility] [address] [place] [address]
--- NOTE | ~2018-08-07 | PN ---
PATIENT:DEVIN MABRY MEDICAL RECORD: [id number] LOCATION:RISA [facility]i112 ADMISSION DATE: 08/08/18 PROGRESS NOTE DATE OF SERVICE: 08/28/2018 SUBJECTIVE: The patient's case was discussed with staff. She has no new complaint. OBJECTIVE: The patient required p.r.n. Klonopin yesterday. She was agitated. I am going to increase the scheduled dose to 0.5 mg 3 times daily. TRANSINT:[id number] Voice Confirmation ID: [id number] DOCUMENT ID: [id number] MIKI MORALES MD at 1641 CC: [id number] DICTATION DATE: 08/28/18 0944 ONLINE ACTIVIST: 08/28/18 1002 ADM IN [place] [address] [place] [address]
--- NOTE | ~2018-08-07 | PN ---
PATIENT:DEVIN MABRY MEDICAL RECORD: [id number] LOCATION:R[facility] German112 ADMISSION DATE: 08/08/18 PROGRESS NOTE DATE OF SERVICE: 09/05/2018 SUBJECTIVE: The patient's case was discussed with staff. She has no new complaint. OBJECTIVE: The patient is in good behavioral control with limited insight about her condition. She tolerates her medicines well. ASSESSMENT: No change in diagnoses. PLAN: Current medicines have been reviewed and will be maintained. Long-term prognosis is guarded. She is going to be transitioned out of the hospital into the assisted living center today. TRANSINT:[id number] Voice Confirmation ID: [id number] DOCUMENT ID: [id number] MIKI MORALES MD at 0935 CC: [id number] DICTATION DATE: 09/05/18 1049 ASSEMBLER FINAL: 09/05/18 1142 DIS IN 09/05/18 [place] [place] [address]
--- NOTE | ~2018-08-07 | PN ---
PATIENT:DEVIN MABRY MEDICAL RECORD: [id number] LOCATION:R[facility] German112 ADMISSION DATE: 08/08/18 PROGRESS NOTE DATE OF SERVICE: 08/16/2018 SUBJECTIVE: The patient's case was discussed with staff. She has no new complaint. OBJECTIVE: The patient is in good behavioral control. She has pretty limited insight about her condition. ASSESSMENT: No change in diagnoses. PLAN: Unfortunately, the patient required some p.r.n. medication last night. She has been started on a scheduled dose of Ativan to assist with her underlying anxiety. It has been a couple of days that she has been on this now and so, I am not going to make an adjustment today. If the problem continues, I certainly will. Apparently, her is now going to allow detention placement which is appropriate given the circumstances. TRANSINT:[id number] Voice Confirmation ID: [id number] DOCUMENT ID: [id number] MIKI MORALES MD at 1024 CC: [id number] DICTATION DATE: 08/16/18 1018 UMBRELLA MENDER: 08/16/18 1122 ADM IN [facility] [address] [place] [address]
[~2018-08-07 22:58] MED LIST changes: +EFFEXOR XR150 MG PO; +LEVOXYL88 MC1 PO; +NAMENDA5 MG PO; +PERPHENAZINE2 MG PO; +PRAVASTATIN SOD10 MG PO; +TRAZODONE HCL50 MG PO
[2018-08-07] MEDS ORDERED: OMEPRAZOLE40 MG PO (23:55)
[2018-08-07] MEDS ORDERED: PERPHENAZINE2 MG PO (23:56)
[2018-08-07] MEDS ORDERED: LEVO-T88 MCG PO (23:57)
[2018-08-08 00:16] LABS: BASOPHILS 0.2 % (0-2); HEMATOCRIT 34.6 % (36.0-48.0); HEMOGLOBIN 11.2 g/dL (12-16); IMMATURE GRANULOCYTES 0.4 % (0-5); LYMPHOCYTES 47.9 % (15-50); MCH 30.6 pg (26.0-34.0); MCHC 32.4 g/dL (31.0-37.0); MCV 94.5 fL (80.0-100.0); MEAN PLATELET VOLUME 9.2 fL (7.4-10.4); MONOCYTES 7.7 % (2-11); NEUTROPHILS 40.8 % (40-80); PLATELET COUNT 326 10x3/uL (130-400); RBC 3.66 10x6/uL (4.00-5.40); RDW 13.3 % (11.5-14.5); WBC 9.2 10x3/uL (4.8-10.8)
[2018-08-08 00:32] LABS: ANION GAP 13.9 mmol/L (8-16); CALCIUM 8.5 mg/dL (8.5-10.1); CREATININE - SERUM 1.5 mg/dL (0.6-1.3); POTASSIUM - SERUM 3.9 mmol/L (3.5-5.1); THYROID STIMULATING HORMONE 5.34 uIU/mL (0.36-3.74)
[2018-08-08 01:55] LABS: UDS - AMPHET NEGATIVE QUAL (NEGATIVE); UDS - BARB NEGATIVE QUAL (NEGATIVE); UDS - BENZO NEGATIVE QUAL (NEGATIVE); UDS - COCAINE NEGATIVE QUAL (NEGATIVE); UDS - OPIATE NEGATIVE QUAL (NEGATIVE); UDS - PCP NEGATIVE QUAL (NEGATIVE); UDS - THC NEGATIVE QUAL (NEGATIVE)
[2018-08-08 01:57] LABS: APPEARANCE CLEAR (CLEAR); BILIRUBIN NEGATIVE (NEGATIVE); COLOR YELLOW (YELLOW); GLUCOSE NEGATIVE (NEGATIVE); KETONE NEGATIVE (NEGATIVE); NITRITE NEGATIVE (NEGATIVE); PROTEIN NEGATIVE (NEGATIVE); UROBILINOGEN NORMAL (NORMAL)
[2018-08-08 01:59] LABS: BACTERIA FEW /hpf (NONE SEEN); EPITHELIAL CELLS 0-5 /hpf (0-5); HYALINE CAST 0-5 /lpf (NONE SEEN); MUCUS <1+ /lpf (NONE SEEN); RED CELLS - URINE 0-5 /hpf (0-5)
[2018-08-08 05:14] VITALS: BP 129/63; BMI 28.4
[2018-08-08 06:54] LABS: CHOL - HDL RATIO 4.9 ratio (2.3-4.1); LDL-HDL RATIO 3.4 ratio (1.5-3.5); THYROID STIMULATING HORMONE 3.73 uIU/mL (0.36-3.74)
[2018-08-08 08:35] VITALS: BP 129/63
[2018-08-08 10:21] VITALS: Ht 157.5 cm; Wt 77.2 kg
[2018-08-08 19:50] VITALS: BP 152/72
[2018-08-09 06:16] LABS: VITAMIN D 25 HYDROXY 16.5 ng/mL (30.0-100.0)
[2018-08-09 07:29] LABS: RAPID PLASMA REAGIN Non Reactive (Non Reactive)
[2018-08-09 07:38] VITALS: BP 153/82
[2018-08-09 09:18] LABS: FOLATE (FOLIC ACID) - SERUM 13.5 ng/mL (>3.0)
[2018-08-09 10:05] VITALS: BP 153/82
[2018-08-09 20:00] VITALS: BP 170/96
[2018-08-10 09:26] VITALS: BP 125/68
[2018-08-10 20:42] VITALS: BP 137/65
[2018-08-11 10:30] VITALS: BP 132/83
[2018-08-11 20:27] VITALS: BP 147/76
[2018-08-12 07:55] VITALS: BP 104/80
[2018-08-12 20:14] VITALS: BP 162/80
[2018-08-13 08:00] VITALS: BP 144/76
[2018-08-13 19:57] VITALS: BP 158/70
[2018-08-14 09:30] VITALS: BP 147/99
[2018-08-14 20:51] VITALS: BP 165/88
[2018-08-15 08:00] VITALS: BP 142/86
[2018-08-15 19:00] VITALS: BP 155/80
[2018-08-16 08:51] VITALS: BP 125/78
[2018-08-16 19:25] VITALS: BP 137/78
[2018-08-16 20:06] VITALS: BP 164/76
[2018-08-17 10:05] VITALS: BP 148/76
[2018-08-17 20:10] VITALS: BP 126/78
[2018-08-18 09:15] VITALS: BP 136/79
[2018-08-18 19:32] VITALS: BP 143/66
[2018-08-19 08:00] VITALS: BP 128/48
[2018-08-19 19:54] VITALS: BP 152/83
[2018-08-20 07:00] VITALS: BP 159/86
[2018-08-20 20:21] VITALS: BP 154/76
[2018-08-21 07:00] VITALS: BP 137/73
[2018-08-21 20:15] VITALS: BP 136/75
[2018-08-22 09:47] VITALS: BP 144/79
[2018-08-22 20:34] VITALS: BP 129/61
[2018-08-23 11:34] VITALS: BP 130/79
[2018-08-23 20:32] VITALS: BP 127/77
[2018-08-24 08:59] VITALS: BP 140/84
[2018-08-24 20:02] VITALS: BP 135/62
[2018-08-25 10:47] VITALS: BP 176/71
[2018-08-25 19:32] VITALS: BP 138/73
[2018-08-26 08:05] VITALS: BP 115/77
[2018-08-26 20:00] VITALS: BP 146/75
[2018-08-27 10:06] VITALS: BP 129/56
[2018-08-27 20:39] VITALS: BP 158/67
[2018-08-28 09:26] VITALS: BP 142/75
[2018-08-28 19:31] VITALS: BP 156/76
[2018-08-29 09:18] VITALS: BP 135/83
[2018-08-29 12:53] LABS: BASOPHILS 0.1 % (0-2); EOSINOPHILS 3.7 % (0-7); HEMATOCRIT 35.9 % (36.0-48.0); HEMOGLOBIN 11.5 g/dL (12-16); IMMATURE GRANULOCYTES 0.1 % (0-5); LYMPHOCYTES 29.8 % (15-50); MCH 30.6 pg (26.0-34.0); MCV 95.5 fL (80.0-100.0); MEAN PLATELET VOLUME 9.2 fL (7.4-10.4); MONOCYTES 6.2 % (2-11); NEUTROPHILS 60.1 % (40-80); PLATELET COUNT 344 10x3/uL (130-400); RBC 3.76 10x6/uL (4.00-5.40); RDW 13.3 % (11.5-14.5); WBC 8.8 10x3/uL (4.8-10.8)
[2018-08-29 13:14] LABS: ALBUMIN 3.4 g/dL (3.4-5.0); ANION GAP 10.8 mmol/L (8-16); BILIRUBIN - TOTAL 0.3 mg/dL (0.2-1.3); CALCIUM 8.8 mg/dL (8.5-10.1); CARBON DIOXIDE 31.4 mmol/L (21.0-32.0); CREATININE - SERUM 1.3 mg/dL (0.6-1.3); POTASSIUM - SERUM 4.2 mmol/L (3.5-5.1); PROTEIN - SERUM 7.4 g/dL (6.4-8.2)
[2018-08-29 19:49] VITALS: BP 175/87
[2018-08-30 10:12] VITALS: BP 163/93
[2018-08-30 21:12] VITALS: BP 160/82
[2018-08-31 09:11] VITALS: BP 156/69
[2018-08-31 20:10] VITALS: BP 139/68
[2018-09-01 11:03] VITALS: BP 143/76
[2018-09-01 20:24] VITALS: BP 170/84
[2018-09-02 08:00] VITALS: BP 157/89
[2018-09-02 21:01] VITALS: BP 145/75
[2018-09-03 07:00] VITALS: BP 158/78
[2018-09-03 19:22] VITALS: BP 151/76
[2018-09-04 07:00] VITALS: BP 146/69
[2018-09-04] MEDS ORDERED: CYMBALTA30 MG PO (10:04)
[2018-09-04] MEDS ORDERED: NAMENDA5 MG PO (10:04)
[2018-09-04] MEDS ORDERED: MUCINEX600 MG PO (10:05)
[2018-09-04] MEDS ORDERED: KLONOPIN0.5 MG PO (10:05)
[2018-09-04] MEDS ORDERED: LEVOXYL100 MCG PO (10:05)
[2018-09-04] MEDS ORDERED: PERPHENAZINE2 MG PO (10:05)
[2018-09-04] MEDS ORDERED: VITAMIN D5000 UNIT PO (10:06)
[2018-09-04] MEDS ORDERED: VITAMIN B-121000 MCG PO (10:06)
[2018-09-04] MEDS ORDERED: ANUSOL-HC 2.5%30 GM RC (10:06)
[2018-09-04 20:19] VITALS: BP 135/63
[2018-09-05 08:00] VITALS: BP 153/92
== END 2018-09-05 14:45 | disposition home or self-care (01) | DRG 57 ==
LOC: D.ER 22:58 → D.PSYCH 08-08 03:03
PROVIDERS: Family Medicine; Psychiatry & Neurology Psychiatry
DX: G30.1 Alzheimer's disease with late onset (principal); F02.81 Dementia in other diseases classified elsewhere, unspecified severity, with behavioral disturbance; N39.0 Urinary tract infection, site not specified; E03.9 Hypothyroidism, unspecified; E78.5 Hyperlipidemia, unspecified; F32.9 Major depressive disorder, single episode, unspecified; K21.9 Gastro-esophageal reflux disease without esophagitis; D64.9 Anemia, unspecified; E55.9 Vitamin D deficiency, unspecified; H61.20 Impacted cerumen, unspecified ear; K64.9 Unspecified hemorrhoids; R42 Dizziness and giddiness; N18.9 Chronic kidney disease, unspecified

== ENCOUNTER 2018-09-08 20:56 | Emergency (ER) | payer MEDICARE, OTHER ==
[~2018-09-08] VITALS: Ht 157.5 cm; Wt 78.2 kg
[~2018-09-08 20:56] MED LIST changes: +ANUSOL-HC 2.5%30 GM RC; +CYMBALTA30 MG PO; +KLONOPIN0.5 MG PO; +LEVO-T88 MCG PO; +LEVOXYL100 MCG PO; +MUCINEX600 MG PO; +OMEPRAZOLE40 MG PO; +VITAMIN B-121000 MCG PO; +VITAMIN D5000 UNIT PO
[2018-09-08 21:03] VITALS: Ht 157.5 cm; Wt 78.2 kg
[2018-09-08] MEDS ORDERED: EFFEXOR XR150 MG (21:05)
[2018-09-08] MEDS ORDERED: DESERYL50 M2 PO (21:05)
[2018-09-08 21:21] LABS: BASOPHILS 0.2 % (0-2); EOSINOPHILS 2.9 % (0-7); HEMATOCRIT 31.9 % (36.0-48.0); HEMOGLOBIN 10.4 g/dL (12-16); IMMATURE GRANULOCYTES 0.1 % (0-5); LYMPHOCYTES 27.8 % (15-50); MCH 30.7 pg (26.0-34.0); MCHC 32.6 g/dL (31.0-37.0); MCV 94.1 fL (80.0-100.0); MEAN PLATELET VOLUME 9.1 fL (7.4-10.4); PLATELET COUNT 294 10x3/uL (130-400); RBC 3.39 10x6/uL (4.00-5.40); WBC 9.4 10x3/uL (4.8-10.8)
[2018-09-08 21:36] LABS: ALBUMIN 3.5 g/dL (3.4-5.0); ALKALINE PHOSPHATASE 72 U/L (46-116); ALT (SGPT) 21 U/L (10-68); BILIRUBIN - TOTAL 0.32 mg/dL (0.2-1.3); CALC OSMOLALITY 280 mosm/kg (275-300); CALCIUM 8.7 mg/dL (8.5-10.1); CARBON DIOXIDE 27.1 mmol/L (21.0-32.0); CHLORIDE - SERUM 102 mmol/L (98-107); CREATININE - SERUM 1.4 mg/dL (0.6-1.3); GLUCOSE 118 mg/dL (74-106); POTASSIUM - SERUM 3.9 mmol/L (3.5-5.1); PROTEIN - SERUM 7.1 g/dL (6.4-8.2); SODIUM 139 mmol/L (136-145); UREA NITROGEN 18 mg/dL (7-18); eGFR NON AFRICAN AMERICAN 38 mL/min (90-120)
[2018-09-08 21:45] LABS: THYROID STIMULATING HORMONE 2.03 uIU/mL (0.36-3.74); TROPONIN-I < 0.017 ng/mL (0.000-0.060)
[2018-09-08 22:11] LABS: UDS - AMPHET NEGATIVE QUAL (NEGATIVE); UDS - BARB NEGATIVE QUAL (NEGATIVE); UDS - BENZO NEGATIVE QUAL (NEGATIVE); UDS - COCAINE NEGATIVE QUAL (NEGATIVE); UDS - OPIATE NEGATIVE QUAL (NEGATIVE); UDS - PCP NEGATIVE QUAL (NEGATIVE); UDS - THC NEGATIVE QUAL (NEGATIVE)
[2018-09-08 22:16] LABS: APPEARANCE CLEAR (CLEAR); BILIRUBIN NEGATIVE (NEGATIVE); COLOR YELLOW (YELLOW); GLUCOSE NEGATIVE (NEGATIVE); KETONE NEGATIVE (NEGATIVE); NITRITE NEGATIVE (NEGATIVE); PROTEIN TRACE mg/dL (NEGATIVE); SPECIFIC GRAVITY 1.025 (1.005-1.020); UROBILINOGEN NORMAL (NORMAL)
[2018-09-08 22:17] LABS: EPITHELIAL CELLS RARE /hpf (0-5); RED CELLS - URINE NONE SEEN /hpf (0-5); WHITE CELLS - URINE NSEEN /hpf (0-5)
[2018-09-08 23:57] VITALS: BP 129/55
[2018-09-09] MEDS ORDERED: EFFEXOR XR150 MG PO (00:24)
== END 2018-09-08 23:59 ==
LOC: D.ER 20:56
PROVIDERS: Family Medicine
DX: F03.90 Unspecified dementia, unspecified severity, without behavioral disturbance, psychotic disturbance, mood disturbance, and anxiety (principal); F91.9 Conduct disorder, unspecified; N28.9 Disorder of kidney and ureter, unspecified

== ENCOUNTER 2018-09-08 23:21 | Inpatient (IN) | payer MEDICARE, OTHER ==
[~2018-09-08] VITALS: Ht 157.5 cm; Wt 88.9 kg
--- NOTE | ~2018-09-08 | PN ---
PATIENT:DEVIN MABRY MEDICAL RECORD: [id number] LOCATION:R[facility] German112 ADMISSION DATE: 09/08/18 PROGRESS NOTE DATE OF SERVICE: 09/11/2018 SUBJECTIVE: The patient's case was discussed. She has no new complaint. OBJECTIVE: The patient is in good behavioral control with limited insight about her condition. She generally tolerates her medicines well. She is extremely confused, but has not required p.r.n. medications. ASSESSMENT: No change in diagnoses. PLAN: Supportive and educational interventions were made. Long-term prognosis is guarded. TRANSINT:[id number] Voice Confirmation ID: [id number] DOCUMENT ID: [id number] MIKI MORALES MD at 0827 CC: [id number] DICTATION DATE: 09/11/18 1214 SUGAR PRESSER: 09/11/18 1252 ADM IN [facility] [address] [place] [address]
--- NOTE | ~2018-09-08 | PN ---
PATIENT:DEVIN MABRY MEDICAL RECORD: [id number] LOCATION:R[facility] German112 ADMISSION DATE: 09/08/18 PROGRESS NOTE DATE OF SERVICE: 09/12/2018 SUBJECTIVE: The patient's case was discussed with staff. She has no new complaint. OBJECTIVE: The patient denies intent to harm herself or others. She slept well last night. She is eating 100% of her meals. She has not been aggressive. ASSESSMENT: No change in diagnoses. PLAN: The patient will be transitioned back to the assisted living center today. For some reason, the assisted living center did not have her on their memory care unit. Also, she was not receiving all of her scheduled medicines. Those two problems have been corrected and she can reasonably be transitioned out of the hospital today. TRANSINT:[id number] Voice Confirmation ID: [id number] DOCUMENT ID: [id number] MIKI MORALES MD at 1613 CC: [id number] DICTATION DATE: 09/12/18822 PAPER GOODS MACHINE SET UP OPERATOR: 09/12/18 0851 DIS IN 09/12/18 [place] [address] [place] [address]
--- NOTE | ~2018-09-08 | PN ---
PATIENT:DEVIN MABRY MEDICAL RECORD: [id number] LOCATION:R[facility] German112 ADMISSION DATE: 09/08/18 PROGRESS NOTE DATE OF SERVICE: 09/10/2018 SUBJECTIVE: The patient's case was discussed with staff. She has no new complaints. OBJECTIVE: I have some additional information about her behaviors at the [facility] [place]. Apparently, she eloped from the facility 3 times in the brief period that she was there. I am not sure how she did that since the memory care unit has a locked door, but she did. At this time, I would recommend that she go to a fdc. I did recommend that on her previous hospitalization, but her was reluctant to try that, which I fully understand. Her behavior today has been good. There has been no agitation. I think she responds very well to the level of structure that were providing. TRANSINT:[id number] Voice Confirmation ID: [id number] DOCUMENT ID: [id number] MIKI MORALES MD at 1203 CC: [id number] DICTATION DATE: 09/10/[address] MACHINE OPERATOR: 09/10/18 1737 ADM IN [facility] [address] [place] [id number]
--- NOTE | ~2018-09-08 | PSY ---
PATIENT NAME:DEVIN MABRY MEDICAL RECORD: [id number] : 40 LOCATION:RISA Zelaya0 ADMISSION DATE: 09/08/18 ACCOUNT: [id number] PSYCHIATRIC EVALUATION DATE OF EVALUATION: 09/09/18 PSYCHIATRIC EVALUATION IDENTIFYING DATA: The patient is 78 years old and she is known to me from previous clinical contact. CHIEF COMPLAINT: Aggression. HISTORY OF PRESENT ILLNESS: This is the third psychiatric hospitalization for this patient this year. The most recent one was August 08 and she was subsequently discharged from the hospital less than a week ago. The patient was sent to an assisted living center contrary to the advice given to her family as it was not felt to be sufficiently supervised. The patient apparently became very agitated, delusional, and aggressive at the facility and had to be admitted to the behavioral unit. She has little recollection of this. She says that she does not belong there and that she does not understand what the problem seems to be, but again she is not remembering things from moment to moment. She denies that she would seek to harm herself. She denies overt psychotic symptoms. PAST MEDICAL HISTORY: Significant for hypothyroidism and hyperlipidemia. PAST PSYCHIATRIC HISTORY: Significant for 3 hospitalizations here in the past 6 months, all for behavior problems associated with her dementing illness. FAMILY HISTORY: Negative for psychiatric disease. ALLERGIES: CEPHALEXIN AND LEVOFLOXACIN. CURRENT MEDICATIONS: Please see the admission's MAR. SOCIAL HISTORY: The patient is and has one adult son and no grandchildren. She is nondrinker and nonsmoker. 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 She has no history of drug or alcohol abuse. MENTAL STATUS EXAMINATION: The patient is awake; alert; and oriented to person but not to time, place, or situation. Her mood is euthymic. Her affect is appropriate. Thought processes are disorganized and there is severe impairment of her memory, concentration, and abstraction abilities. She denies that she would want to harm herself or others and denies any psychotic symptoms. ASSETS: Supportive family members. LIABILITIES: Limited insight. DIAGNOSTIC IMPRESSION: AXIS I: Senile dementia of the Alzheimer's type with behavioral disturbances. AXIS II: None. AXIS III: Hypothyroidism and hyperlipidemia. AXIS IV: Moderate stressors. AXIS V: Global assessment of functioning is 35. PLAN: At this time, the patient is admitted to the hospital secondary to confused, agitated behavior at the assisted living center. Her long-term prognosis is guarded. She is going to be started on the same medication she was taking when she left, and at that time, we were not having excessive problems with her. I think it is because of the level of supervision that she received here and I think the level of supervision in an assisted living center is not going to be adequate for her needs. TRANSINT:[id number] Voice Confirmation ID: [id number] DOCUMENT ID: [id number] MIKI MORALES MD at 1502 CC: [id number] DICTATION DATE: 09/09/18 1128 FISHING HAND: 09/09/18 1202 ADM IN [address] [place] [address]
--- NOTE | ~2018-09-08 | DS ---
PATIENT:DEVIN MABRY :40 MEDICAL RECORD: [id number] DISCHARGE SUMMARY ADMISSION DATE: 09/08/18 DISCHARGE DATE: 09/12/18 IDENTIFYING DATA: The patient is 78 years old and she was admitted to the hospital on a voluntary basis because of aggression. This admission represents the third hospitalization for this patient this year. All of them have been related to agitated and confused behavior. She apparently was in an assisted living center, which was contrary to the recommendation upon discharge at her last hospitalization. She is quite confused. She has no recollection of her agitated behavior. HOSPITAL COURSE: The patient was evaluated. She continued to have behavior problems associated with an advanced dementia. She was placed back on the medications that she had been on when she was discharged. She showed no behavior problems and was subsequently returned to the assisted living center. DISCHARGE DIAGNOSES: AXIS I: Senile dementia of the Alzheimer's type with behavioral disturbances. AXIS II: None. AXIS III: Hypothyroidism and hyperlipidemia. AXIS IV: Moderate stressors. AXIS V: Global assessment of functioning is 35. PLAN: At the time of discharge, the patient was in good behavioral control and showed no evidence of acute or direct dangerousness. She was tolerating her medications well. Her long-term prognosis is guarded. Supportive and educational interventions were made. On this occasion, the patient was placed in the memory care unit of the assisted living center instead of the less supervised open and unlocked unit. TRANSINT:[id number] Voice Confirmation ID: [id number] DOCUMENT ID: [id number] MIKI MORALES MD at 1627 CC: [id number] DICTATION DATE: 09/13/18 161 REGIONAL COORDINATOR: 09/14/18 0134 DIS IN 09/12/18 [place] [id number] [place] [id number]
[~2018-09-08 23:21] MED LIST changes: +DESERYL50 M2 PO; +EFFEXOR XR150 MG
[2018-09-09] MEDS ORDERED: EFFEXOR XR150 MG PO (00:24)
[2018-09-09 00:45] VITALS: BP 146/73; BMI 31.1
[2018-09-09 05:48] LABS: CHOL - HDL RATIO 3.1 ratio (2.3-4.1); LDL-HDL RATIO 1.8 ratio (1.5-3.5); THYROID STIMULATING HORMONE 1.89 uIU/mL (0.36-3.74)
[2018-09-09 07:00] VITALS: BP 130/79
[2018-09-09 20:00] VITALS: BP 138/78
[2018-09-10 00:50] VITALS: BP 138/78
[2018-09-10 05:07] LABS: APPEARANCE CLEAR (CLEAR); BILIRUBIN NEGATIVE (NEGATIVE); COLOR YELLOW (YELLOW); GLUCOSE NEGATIVE (NEGATIVE); KETONE NEGATIVE (NEGATIVE); NITRITE NEGATIVE (NEGATIVE); PROTEIN NEGATIVE (NEGATIVE); SPECIFIC GRAVITY 1.015 (1.005-1.020); UROBILINOGEN NORMAL (NORMAL)
[2018-09-10 07:00] VITALS: BP 157/77
[2018-09-10 11:41] VITALS: BMI 31.1
[2018-09-10 14:31] VITALS: Ht 157.5 cm; Wt 88.9 kg
[2018-09-10 19:38] VITALS: BP 166/67
[2018-09-11 06:15] LABS: RAPID PLASMA REAGIN Non Reactive (Non Reactive)
[2018-09-11 07:25] LABS: FOLATE (FOLIC ACID) - SERUM 14.5 ng/mL (>3.0); VITAMIN D 25 HYDROXY 46.9 ng/mL (30.0-100.0)
[2018-09-11 08:00] VITALS: BP 159/78
[2018-09-11] MEDS ORDERED: CYMBALTA30 MG PO (14:34)
[2018-09-11] MEDS ORDERED: KLONOPIN0.5 MG PO (14:35)
[2018-09-11] MEDS ORDERED: PERPHENAZINE2 MG PO (14:35)
[2018-09-11 19:51] VITALS: BP 143/68
[2018-09-12 09:04] VITALS: BP 156/76
== END 2018-09-12 14:35 | disposition home or self-care (01) | DRG 57 ==
LOC: D.PSYCH 23:21
PROVIDERS: Psychiatry & Neurology Psychiatry
DX: G30.1 Alzheimer's disease with late onset (principal); F02.81 Dementia in other diseases classified elsewhere, unspecified severity, with behavioral disturbance; E03.9 Hypothyroidism, unspecified; E78.5 Hyperlipidemia, unspecified; F32.9 Major depressive disorder, single episode, unspecified; E11.9 Type 2 diabetes mellitus without complications; K21.9 Gastro-esophageal reflux disease without esophagitis; E55.9 Vitamin D deficiency, unspecified; G47.00 Insomnia, unspecified; K64.9 Unspecified hemorrhoids

== ENCOUNTER 2018-09-27 03:42 | Inpatient (IN) | payer MEDICARE, OTHER ==
[2018-09-27] VITALS (8 sets, daily range): BP systolic 124–177; BP diastolic 67–87; BMI 27.8
[~2018-09-27] VITALS: Ht 162.6 cm; Wt 73.5 kg
--- NOTE | ~2018-09-27 | OP ---
PATIENT NAME: DEVIN SCHNEIDER MEDICAL RECORD: [id number] :40 LOCATION:D.MS [id number] ADMISSION DATE:09/27/18 SURGEON: JACINTO BOWIE DO DATE OF OPERATION: 09/28/2018 PROCEDURE PERFORMED: Left janell hip arthroplasty. PREOPERATIVE DIAGNOSIS: Left femoral neck fracture. POSTOPERATIVE DIAGNOSIS: Left femoral neck fracture. INDICATIONS: Ms. Schneider is a 78-year-old demented female who just went to the memory care unit of a correction, her family sent her there. She fell onto her left side yesterday and sustained a femoral neck fracture. She was seen in the ER. Her and her family were made aware of the risks and benefits of the procedure including infection, bleeding, damage to nerve or vessels, fracture, need for further surgery, dislocation. She was also aware due to her age and mental status, she has a high mortality rate within the first year. They were aware of that and consented to the procedure. SURGEON: Jacinto Bowie DO DESCRIPTION OF PROCEDURE: The patient was taken to the operative suite. She was given a spinal initially. Once the spinal was set up, the patient was transferred to the [place] table. A gram of vancomycin given preoperatively for antibiotics due to her allergies. The timeout was performed, everyone was in agreeance to the correct side, site and patient. The left hip was then prepped and draped in sterile fashion and the incision began. Once the incision began, the patient said to stop that and she could feel everything. At that time, an LMA was placed. The incision then was taken down to the tensor fascia seth itself. The fascia was incised and the muscle belly was taken posteriorly and the fascia superiorly and then the rectus fascia was opened. Rectus was taken medially, the tensor fascia seth laterally and the ascending branch of lateral femoral circumflex artery was tied off and coagulated with Aquamantys. The capsule was then exposed and Hohmanns were placed on the capsule and the capsule was then opened and tagged. The femoral neck cut was then made. The head was then removed and then the femur was exposed. After femur was exposed, the canal finder was used and the cookie cutter and then broaching began up to an 8, seemed to fit well. Then, this was reduced and decided to do a 44 bipolar head with Taperloc high offset micro stem. The 28 head and a -3 neck, this seemed to fit well on the images and closed to exact length, appropriate length on the left compared to the right with that combination. This was then dislocated and then the actual implants were put in and x-rays were taken and seemed to fit well. No fracture was seen in the femur. The hip had good motion with internal and external rotation on the table. The capsule was then closed with #2 Ethibond and then tagged with. A thorough irrigation was done at that time. Any bleeders were coagulated with the Aquamantys. Surgicel beads and tobramycin and vancomycin powder was placed in the wound. The tensor fascia steh fascia was then closed with 0 Vicryl, first with a dmofld-kh-nzhrg stitch and then a running locking stitch and then more irrigation was done and more vancomycin and tobramycin powder were placed on top of that as well as here, the Surgicel beads. The skin was then closed with 2-0 Vicryl in an inverted interrupted fashion, 4-0 Monocryl running on the skin and a Prevena wound VAC, incisional VAC was placed on the wound. The patient was awakened and taken to recovery in stable condition. Blood loss approximately 100 mL. OPERATIVE REPORT [id number] DEVIN SCHNEIDER COMPLICATIONS: None. TRANSINT:[id number] Voice Confirmation ID: [id number] DOCUMENT ID: [id number] JACINTO BOWIE DO at 0938 CC: [id number] DICTATION DATE: 09/28/181715 PROCESS IMPROVEMENT CONSULTANT: 09/29/18 0126 ADM IN [facility] [address] [place] [id number]
--- NOTE | ~2018-09-27 | MORECARE ---
CASE MANAGEMENT DISCHARGE SUMMARY PATIENT: DEVIN MABRY UNIT: [id number] ADM DATE: 09/27/18 AGE: 78 : 40 SEX: F ROOM/BED: D.2216 AUTHOR: JULIET GOEL PHYSICIAN: REFERRING PHYSICIAN: ARIANA FAITH DO DATE OF SERVICE: 10/01/18 Discharge Plan Patient Name: DEVIN MABRY Facility: [facility] : 1940 Planned Disposition: Inpatient Rehab Anticipated Discharge Date: Discharge Date: Expected LOS: Initial Reviewer: [email or web address] Initial Review Date: 09/27/2018 Generated: 10/01/18 1:07 pm Comments DCP- Discharge Planning Updated by [email or web address]: Mimi Ramires on 10/01/18 11:[address] Patient Name: DEVIN AMBRY Admission Status: ER Accout number: [id number] Admission Date: 09-27-2018 : 1940 Admission Diagnosis:FRACTURE OF UNSP PART OF NECK OF LEFT FEMUR, INIT Attending: ARIANA FAITH Current LOS: 4 Anticipated DC Date: Planned Disposition: Inpatient Rehab Primary Insurance: MEDICARE A & B Discharge Planning Comments: CM met with patient to assess discharge planning needs. Patient stated that she lives independently at home where she plans to return. She is pleasantly confused about some things when I was interviewing her. I called her , Brandon and he stated that she has just recently moved into [facility] for her Memory. After her surgery she has gotten worse. I talked to him about inpatient rehab and he would like that for her to get stronger. She has a CPAP machine at home, but that is it. IMM served & explained to patient and over the phone with her . CM will continue to follow and assist with DC planning Enrollment Management Coordinator: Mimi Ramires DCPIA - Discharge Planning Initial Assessment Updated by [email or web address]: Mimi Ramires on 10/01/18 12:04 pm * Is the patient Alert and Oriented? Yes * How many steps to enter\exit or inside your home? FLIGHT * PCP [facility] * Pharmacy [facility] * Preadmission Environment Memory Care * Facility Name [facility] * ADLs Independent * Equipment CPAP * List name and contact numbers for known caregivers / representatives who currently or will assist patient after discharge: BRANDON () [phone] * Additional services required to return to the preadmission environment? Yes * Can the patient safely return to the preadmission environment? No * Has this patient been hospitalized within the prior 30 days at any hospital? No Patient Name: DEVIN MABRY Page [id number] at 1208 All edits/amendments must be made on the electronic document DICTATION DATE: 10/01/181206 CUSHION STUFFER: CARRIE 10/01/181206 RPT#: [id number] DC DATE: STATUS: ADM IN [facility] [address] [place] [address] END OF REPORT
--- NOTE | ~2018-09-27 | MORECARE ---
CASE MANAGEMENT DISCHARGE SUMMARY PATIENT: DEVIN MABRY UNIT: [id number] ADM DATE: 09/27/18 AGE: 78 : 40 SEX: F ROOM/BED: D.2216 AUTHOR: JULIET GOEL PHYSICIAN: REFERRING PHYSICIAN: ARIANA FAITH DO DATE OF SERVICE: 10/01/18 Discharge Plan Patient Name: DEVIN MABRY Facility: [facility]:[place] : 1940 Planned Disposition: Inpatient Rehab Anticipated Discharge Date: Discharge Date: Expected LOS: Initial Reviewer: [email or web address] Initial Review Date: 09/27/2018 Generated: 10/01/18 3:23 pm Comments DCP- Discharge Planning Updated by [email or web address]: Mimi Ramires on 10/01/18 1:[address] patient will be discharging to inpatient rehab today, brandon her was notified. cm to follow and assist with dc planning DCP- Discharge Planning Updated by [email or web address]: Mimi Ramires on 10/01/18 11:[address] Patient Name: DEVIN MABRY Admission Status: ER Accout number: [id number] Admission Date: 09-27-2018 : 1940 Admission Diagnosis:FRACTURE OF UNSP PART OF NECK OF LEFT FEMUR, INIT Attending: ARIANA FAITH Current LOS: 4 Anticipated DC Date: Planned Disposition: Inpatient Rehab Primary Insurance: MEDICARE A & B Discharge Planning Comments: CM met with patient to assess discharge planning needs. Patient stated that she lives independently at home where she plans to return. She is pleasantly confused about some things when I was interviewing her. I called her , Brandon and he stated that she has just recently moved into [facility] for her Memory. After her surgery she has gotten worse. I talked to him about inpatient rehab and he would like that for her to get stronger. She has a CPAP machine at home, but that is it. IMM served & explained to patient and over the phone with her . CM will continue to follow and assist with DC planning Tableau Analyst: Mimi Ramires DCPIA - Discharge Planning Initial Assessment Updated by [email or web address]: Mimi Ramires on 10/01/18 12:04 pm * Is the patient Alert and Oriented? Yes * How many steps to enter\exit or inside your home? FLIGHT * PCP NU REEDER * [facility] * Preadmission Environment Memory Care * Facility Name [facility] * ADLs Independent * Equipment CPAP * List name and contact numbers for known caregivers / representatives who currently or will assist patient after discharge: BRANDON () [phone] * Additional services required to return to the preadmission environment? Yes * Can the patient safely return to the preadmission environment? No * Has this patient been hospitalized within the prior 30 days at any hospital? No Coverage Notice Reviewer: [id number] - Mimi Ramires Notice Issued Date-Time: 10/01/2018 11:15 Notice Type: IM Discharge Notice Notice Delivered To: Patient Relationship to Patient: Spouse Registry Rn Name: brandon via phone Delivery Method: HAND - Hand Delivered Stacy Days: Prior Verbal Notification: Recipient Understood Notice: Yes Recipient Signature: Yes Med Rec Note Co-signed by Attending: Coverage Notice Comment: also explained to brandon over the phone Last DP export: 10/01/18 11:07 a Patient Name: DEVIN MABRY Page 34823 at 1423 All edits/amendments must be made on the electronic document DICTATION DATE: 10/01/181421 DITCH RIDER: CARRIE 10/01/181421 RPT#: [id number] DC DATE: STATUS: ADM IN [facility] [address] [place] [address] END OF REPORT
--- NOTE | ~2018-09-27 | MORECARE ---
CASE MANAGEMENT DISCHARGE SUMMARY PATIENT: DEVIN MABRY UNIT: [id number] ADM DATE: 09/27/18 AGE: 78 : 40 SEX: F ROOM/BED: D.2216 AUTHOR: JULIET GOEL PHYSICIAN: REFERRING PHYSICIAN: ARIANA FAITH DO DATE OF SERVICE: 10/03/18 Discharge Plan Patient Name: DEVIN MABRY Facility: [facility]:[place] : 1940 Planned Disposition: Inpatient Rehab Anticipated Discharge Date: Discharge Date: 10/01/2018 Expected LOS: Initial Reviewer: [email or web address] Initial Review Date: 09/27/2018 Generated: 10/03/18 11:29 am Comments DCP- Discharge Planning Updated by [email or web address]: Mimi Ramires on 10/01/18 1:[address] patient will be discharging to inpatient rehab today, brandon her was notified. cm to follow and assist with dc planning DCP- Discharge Planning Updated by [id number]: Mimi Ramires on 10/01/18 11:[address] Patient Name: DEVIN MABRY Admission Status: ER Accout number: [id number] Admission Date: 09-27-2018 : 1940 Admission Diagnosis:FRACTURE OF UNSP PART OF NECK OF LEFT FEMUR, INIT Attending: ARIANA FAITH Current LOS: 4 Anticipated DC Date: Planned Disposition: Inpatient Rehab Primary Insurance: MEDICARE A & B Discharge Planning Comments: CM met with patient to assess discharge planning needs. Patient stated that she lives independently at home where she plans to return. She is pleasantly confused about some things when I was interviewing her. I called her , Brandon and he stated that she has just recently moved into [facility] for her Memory. After her surgery she has gotten worse. I talked to him about inpatient rehab and he would like that for her to get stronger. She has a CPAP machine at home, but that is it. IMM served & explained to patient and over the phone with her . CM will continue to follow and assist with DC planning Nurse Aide Evaluator: Mimi Ramires DCPIA - Discharge Planning Initial Assessment Updated by [id number]: Mimi Ramires on 10/01/18 12:04 pm * Is the patient Alert and Oriented? Yes * How many steps to enter\exit or inside your home? FLIGHT * PCP NU REEDER * [facility] * Preadmission Environment Memory Care * Facility Name [facility] * ADLs Independent * Equipment CPAP * List name and contact numbers for known caregivers / representatives who currently or will assist patient after discharge: BRANDON () [phone] * Additional services required to return to the preadmission environment? Yes * Can the patient safely return to the preadmission environment? No * Has this patient been hospitalized within the prior 30 days at any hospital? No Coverage Notice Reviewer: [id number] - Mimi Ramires Notice Issued Date-Time: 10/01/2018 11:15 Notice Type: IM Discharge Notice Notice Delivered To: Patient Relationship to Patient: Spouse Cutting And Creasing Press Operator Name: brandon via phone Delivery Method: HAND - Hand Delivered Stacy Days: Prior Verbal Notification: Recipient Understood Notice: Yes Recipient Signature: Yes Med Rec Note Co-signed by Attending: Coverage Notice Comment: also explained to brandon over the phone Last DP export: 10/01/18 1:23 p Patient Name: DEVIN MABRY Page 77613 at 1029 All edits/amendments must be made on the electronic document DICTATION DATE: 10/03/18 1028 PANAMA HAT HYDRAULIC PRESS OPERATOR: CARRIE 10/03/18 1028 RPT#: [id number] DC DATE:10/01/18 STATUS: DIS IN [facility] [address] [place] [address] END OF REPORT
[2018-09-27] MEDS ORDERED: OMEPRAZOLE40 MG PO (04:13)
[2018-09-27 04:33] LABS: BASOPHILS 0 % (0-2); EOSINOPHILS 2.9 % (0-7); HEMATOCRIT 33.2 % (36.0-48.0); HEMOGLOBIN 10.6 g/dL (12-16); IMMATURE GRANULOCYTES 0.5 % (0-5); LYMPHOCYTES 17.6 % (15-50); MCH 30.3 pg (26.0-34.0); MCHC 31.9 g/dL (31.0-37.0); MCV 94.9 fL (80.0-100.0); MEAN PLATELET VOLUME 9.4 fL (7.4-10.4); MONOCYTES 5.1 % (2-11); NEUTROPHILS 73.9 % (40-80); PLATELET COUNT 303 10x3/uL (130-400); RDW 13.5 % (11.5-14.5); WBC 7.5 10x3/uL (4.8-10.8)
[2018-09-27 04:37] LABS: APTT 28.6 SECONDS (22.8-39.4); INR 1.17 (0.85-1.17); PROTIME 14.3 SECONDS (11.6-15.0)
[2018-09-27 04:43] LABS: ALBUMIN 3.3 g/dL (3.4-5.0); BILIRUBIN - TOTAL 0.49 mg/dL (0.2-1.3); CALCIUM 8.6 mg/dL (8.5-10.1); CARBON DIOXIDE 25.7 mmol/L (21.0-32.0); CREATININE - SERUM 1.2 mg/dL (0.6-1.3); POTASSIUM - SERUM 3.7 mmol/L (3.5-5.1); PROTEIN - SERUM 7.2 g/dL (6.4-8.2)
[2018-09-27 06:15] LABS: APPEARANCE CLEAR (CLEAR); BILIRUBIN NEGATIVE (NEGATIVE); COLOR YELLOW (YELLOW); GLUCOSE NEGATIVE (NEGATIVE); KETONE NEGATIVE (NEGATIVE); NITRITE NEGATIVE (NEGATIVE); PROTEIN NEGATIVE (NEGATIVE); SPECIFIC GRAVITY 1.015 (1.005-1.020); UROBILINOGEN NORMAL (NORMAL)
[2018-09-27 06:16] LABS: WHITE CELLS - URINE 0-5 /hpf (0-5)
[2018-09-27 06:17] LABS: BACTERIA FEW /hpf (NONE SEEN); EPITHELIAL CELLS 0-5 /hpf (0-5); RED CELLS - URINE NONE SEEN /hpf (0-5)
[2018-09-28] VITALS (7 sets, daily range): BP systolic 107–140; BP diastolic 51–69; Ht 162.6 cm; Wt 73.5 kg
[2018-09-28 04:28] LABS: BASOPHILS 0.1 % (0-2); EOSINOPHILS 1.9 % (0-7); HEMATOCRIT 33.3 % (36.0-48.0); HEMOGLOBIN 10.6 g/dL (12-16); IMMATURE GRANULOCYTES 0.3 % (0-5); LYMPHOCYTES 14.1 % (15-50); MCH 30.3 pg (26.0-34.0); MCHC 31.8 g/dL (31.0-37.0); MCV 95.1 fL (80.0-100.0); MEAN PLATELET VOLUME 9.6 fL (7.4-10.4); MONOCYTES 4.5 % (2-11); NEUTROPHILS 79.1 % (40-80); PLATELET COUNT 268 10x3/uL (130-400); RDW 13.7 % (11.5-14.5); WBC 7.8 10x3/uL (4.8-10.8)
[2018-09-28 04:46] LABS: ALBUMIN 2.7 g/dL (3.4-5.0); ANION GAP 12.7 mmol/L (8-16); BILIRUBIN - TOTAL 0.48 mg/dL (0.2-1.3); CALCIUM 7.9 mg/dL (8.5-10.1); CARBON DIOXIDE 25.7 mmol/L (21.0-32.0); CREATININE - SERUM 1.1 mg/dL (0.6-1.3); POTASSIUM - SERUM 3.4 mmol/L (3.5-5.1); PROTEIN - SERUM 6.5 g/dL (6.4-8.2)
[2018-09-29] VITALS: BP 104/44
[2018-09-29 04:00] VITALS: BP 134/60
[2018-09-29 05:08] LABS: BASOPHILS 0 % (0-2); EOSINOPHILS 0 % (0-7); HEMATOCRIT 30.6 % (36.0-48.0); HEMOGLOBIN 9.8 g/dL (12-16); IMMATURE GRANULOCYTES 0.3 % (0-5); LYMPHOCYTES 11.2 % (15-50); MCH 30.2 pg (26.0-34.0); MCV 94.2 fL (80.0-100.0); MEAN PLATELET VOLUME 9.7 fL (7.4-10.4); MONOCYTES 2.5 % (2-11); PLATELET COUNT 247 10x3/uL (130-400); RBC 3.25 10x6/uL (4.00-5.40); RDW 13.4 % (11.5-14.5); WBC 7.3 10x3/uL (4.8-10.8)
[2018-09-29 05:20] LABS: ALBUMIN 2.3 g/dL (3.4-5.0); ANION GAP 14.6 mmol/L (8-16); BILIRUBIN - TOTAL 0.32 mg/dL (0.2-1.3); CALCIUM 7.6 mg/dL (8.5-10.1); CARBON DIOXIDE 24.3 mmol/L (21.0-32.0); CREATININE - SERUM 1.1 mg/dL (0.6-1.3); POTASSIUM - SERUM 3.9 mmol/L (3.5-5.1); PROTEIN - SERUM 5.8 g/dL (6.4-8.2)
[2018-09-29 08:51] VITALS: BP 107/60
[2018-09-29 12:53] VITALS: BP 110/60
[2018-09-29 20:00] VITALS: BP 121/64
[2018-09-30] VITALS: BP 113/62
[2018-09-30 04:00] VITALS: BP 136/87
[2018-09-30 05:33] LABS: BASOPHILS 0.1 % (0-2); EOSINOPHILS 2.2 % (0-7); HEMATOCRIT 29.2 % (36.0-48.0); HEMOGLOBIN 9.5 g/dL (12-16); IMMATURE GRANULOCYTES 0.4 % (0-5); LYMPHOCYTES 20.1 % (15-50); MCH 30.2 pg (26.0-34.0); MCHC 32.5 g/dL (31.0-37.0); MCV 92.7 fL (80.0-100.0); MEAN PLATELET VOLUME 9.5 fL (7.4-10.4); NEUTROPHILS 71.2 % (40-80); PLATELET COUNT 240 10x3/uL (130-400); RBC 3.15 10x6/uL (4.00-5.40); RDW 13.4 % (11.5-14.5)
[2018-09-30 05:50] LABS: WBC 9.6 10x3/uL (4.8-10.8)
[2018-09-30 06:06] LABS: ALBUMIN 2.4 g/dL (3.4-5.0); ANION GAP 12.1 mmol/L (8-16); BILIRUBIN - TOTAL 0.33 mg/dL (0.2-1.3); CALCIUM 7.8 mg/dL (8.5-10.1); CARBON DIOXIDE 25.7 mmol/L (21.0-32.0); CREATININE - SERUM 1.1 mg/dL (0.6-1.3); POTASSIUM - SERUM 3.8 mmol/L (3.5-5.1); PROTEIN - SERUM 5.9 g/dL (6.4-8.2)
[2018-09-30 09:31] VITALS: BP 141/63
[2018-09-30 12:37] VITALS: BP 133/57
[2018-09-30 17:28] VITALS: BP 171/72
[2018-09-30 20:00] VITALS: BP 160/74
[2018-10-01] VITALS: BP 154/67
[2018-10-01 03:23] VITALS: BP 154/67
[2018-10-01 04:00] VITALS: BP 145/75
[2018-10-01 04:32] LABS: BASOPHILS 0.1 % (0-2); HEMATOCRIT 32.1 % (36.0-48.0); HEMOGLOBIN 10.5 g/dL (12-16); IMMATURE GRANULOCYTES 0.3 % (0-5); MCH 30.6 pg (26.0-34.0); MCHC 32.7 g/dL (31.0-37.0); MCV 93.6 fL (80.0-100.0); MONOCYTES 5.9 % (2-11); NEUTROPHILS 62.7 % (40-80); PLATELET COUNT 286 10x3/uL (130-400); RBC 3.43 10x6/uL (4.00-5.40); RDW 13.4 % (11.5-14.5); WBC 8.6 10x3/uL (4.8-10.8)
[2018-10-01 05:02] LABS: ALBUMIN 2.4 g/dL (3.4-5.0); ANION GAP 13.3 mmol/L (8-16); BILIRUBIN - TOTAL 0.33 mg/dL (0.2-1.3); CALCIUM 8.2 mg/dL (8.5-10.1); CARBON DIOXIDE 28.1 mmol/L (21.0-32.0); CREATININE - SERUM 1.2 mg/dL (0.6-1.3); POTASSIUM - SERUM 3.4 mmol/L (3.5-5.1); PROTEIN - SERUM 6.2 g/dL (6.4-8.2)
[2018-10-01 08:45] VITALS: BP 130/67
[2018-10-01] MEDS ORDERED: VIBRAMYCIN 100100 MG PO (13:49)
[2018-10-01 14:04] VITALS: BP 123/75
[2018-10-01] MEDS ORDERED: ELIQUIS2.5 MG PO (14:23)
== END 2018-10-01 17:01 | DRG 470 ==
LOC: D.ER 03:42 → D.MS 05:16 → D.EDHOLD 05:16 → D.MS 09:57 → D.SDCHOLD 10-01 13:57 → D.MS 10-01 13:58
PROVIDERS: Family Medicine; Orthopaedic Surgery
PROC: 0SRS0JZ Replacement of Left Hip Joint, Femoral Surface with Synthetic Substitute, Open Approach (ICD-10-PCS; principal; 2018-09-28 10:00)
DX: S72.002A Fracture of unspecified part of neck of left femur, initial encounter for closed fracture (principal); F03.91 Unspecified dementia, unspecified severity, with behavioral disturbance; N39.0 Urinary tract infection, site not specified; W19.XXXA Unspecified fall, initial encounter; G30.1 Alzheimer's disease with late onset; F02.80 Dementia in other diseases classified elsewhere, unspecified severity, without behavioral disturbance, psychotic disturbance, mood disturbance, and anxiety; E11.65 Type 2 diabetes mellitus with hyperglycemia; E87.6 Hypokalemia; F32.9 Major depressive disorder, single episode, unspecified; F06.8 Other specified mental disorders due to known physiological condition

== ENCOUNTER 2018-10-01 16:26 | Inpatient (IN) | payer MEDICARE, OTHER ==
[~2018-10-01] VITALS: Ht 162.6 cm; Wt 50.8 kg
--- NOTE | ~2018-10-01 | RHP ---
PATIENT: DEVIN MABRY MEDICAL RECORD: [id number] ACCOUNT: [id number] [facility] : [birth year] ADMISSION DATE: 10/01/18 REHABILITATION HISTORY AND PHYSICAL EXAMINATION POST ADMISSION PHYSICIAN EXAMINATION DATE OF ADMISSION: 10/01/2018 ADMITTING DIAGNOSES: Left hemiarthroscopy status post left femoral neck fracture. HISTORY OF PRESENT ILLNESS: The patient was admitted to the inpatient rehab with a left hemiarthroscopy status post left femoral neck fracture. The patient is a 78-year-old female patient who presented to the ED via EMS after a fall. She complained of hip pain and unable to ambulate. She was found to have an acute femoral neck fracture. Orthopedic surgery was consulted. They did a left hip hemiarthroscopy on 09/28/2018. She has had some postop pain. She has required some supplemental O2 and also had some postoperative blood loss anemia. She has also been noted to have some impaired mobility, weakness and self-care deficits. These are all barriers for her discharging home. She has got a history of Alzheimer's dementia was moved into [facility] unit by her family. She was independent with her mobility and ADLs prior to this. She is currently setup for max assist for ADLs and [id number] assist with her mobility. She and her spouse plan for her to get back to her prior level of function and hopefully return back to [facility] at her prior level of functioning. COMORBIDITIES: Include a fall at home, type 2 diabetes, febrile illness, hypokalemia, hyperlipidemia, renal insufficiency, hypothyroidism, Alzheimer's dementia, depression, recent falls, impaired mobility, weakness and self-care deficit. PAST MEDICAL HISTORY: Significant for Alzheimer's, thyroid problems, hyperlipidemia, acid reflux, menopause, depression, insomnia, diabetes, hyperlipidemia, hypothyroidism. PAST SURGICAL HISTORY: Includes hysterectomy. ALLERGIES: CEPHALEXIN AND LEVAQUIN. CURRENT MEDICATIONS: Include Floranex 460 mg daily, Pravachol 40 mg daily, Synthroid 100 mcg daily, duloxetine 30 mg daily, vitamin D 10,000 units daily. She is on a glucose replacement protocol at this time, a low-resistant sliding scale with Humalog, Protonix 40 mg daily, doxycycline 100 mg b.i.d., trazodone 50 mg at bedtime, perphenazine 10 mg at bedtime, Namenda 10 mg b.i.d., Klonopin 0.25 mg b.i.d. and Eliquis 2.5 mg b.i.d. HABITS: No current alcohol or tobacco use. FAMILY HISTORY: Noncontributory. SOCIAL HISTORY: The patient hopes to return back to [facility] or [facility] with her . REVIEW OF SYSTEMS: HISTORY AND PHYSICAL [id number] DEVIN MABRY GENERAL: She does complain of some weakness and fatigue. HEENT: Denies cold, cough, or congestion. CARDIOVASCULAR: Denies chest pain. PHYSICAL EXAMINATION: VITAL SIGNS: Stable, afebrile. GENERAL: Elderly female, in no acute distress upon exam. HEENT: Normocephalic and atraumatic. Mucosa moist. NECK: Supple. No lymphadenopathy. LUNGS: Clear at this time. HEART: Regular rate and rhythm. ABDOMEN: Benign. EXTREMITIES: No clubbing, cyanosis or edema. Postop area looks pretty good. NEUROLOGIC: She does have noted problems with her memory and noted weakness. LABORATORY DATA: Her white count is 8.9, H&H of 10 and 31 and platelet count was 284. Her sodium is 140, potassium 4.0, BUN and creatinine of 22 and 1.2, and blood sugar is noted to be 116. ASSESSMENT: This is a 78-year-old female patient admitted to rehab with a working diagnosis of status post left hemiarthroscopy secondary to hip fracture. The patient has potential to make improvement. We instituted the following multidisciplinary therapies including, but not limited to physical, occupational, respiratory, speech, nutritional services, prosthetics and orthotics. Given her complex medical condition and risk for more complications, rehabilitation services cannot be provided at a low level of care such as skilled nurse facility. PLAN: 1. Admit to [facility] for intensive inpatient therapy to include the following disciplines: A. Physical therapy to improve gait, all transfer skills and bed mobility to a modified independent level. B. Occupational therapy to a modified independent level. C. Case management to assist with discharge planning and placement options. D. Nutrition to assist with nutritional needs. E. Rehabilitation nursing to assist in monitoring the patient's underlying medical conditions and to assist with any type of bowel or bladder management. 2. The patient's current medication and medical care will be continued. 3. The patient will be placed on standard fall precautions. 4. The patient's estimated length of stay is approximately 7-10 days. 5. We will keep on Eliquis for DVT prophylaxis. We add a PPI if necessary and I am going to follow up in the a.m. TRANSINT:[id number] Voice Confirmation ID: [id number] DOCUMENT ID: [id number] JOHN notes whether there has been none or any medical/functional change since admission: - No change since preadmission screen. JOHN attests patient continues to be appropriate for IRF: - Continues to be appropriate. HISTORY AND PHYSICAL [id number] DEVIN MABRY SCOTT MD at 1538 CC: [id number] DICTATION DATE: 10/02/18829 SUPERVISOR COLOR MAKING: 10/02/18 0952 ADM IN [facility] [id number] [place] [address]
[~2018-10-01 16:26] MED LIST changes: +ELIQUIS2.5 MG PO; +VIBRAMYCIN 100100 MG PO
[2018-10-01 17:41] VITALS: BP 147/78
[2018-10-02 00:32] VITALS: BP 142/77
[2018-10-02 06:24] LABS: BASOPHILS 0.1 % (0-2); EOSINOPHILS 3.9 % (0-7); HEMATOCRIT 31.2 % (36.0-48.0); IMMATURE GRANULOCYTES 0.8 % (0-5); LYMPHOCYTES 32.1 % (15-50); MCH 29.9 pg (26.0-34.0); MCHC 32.1 g/dL (31.0-37.0); MCV 93.4 fL (80.0-100.0); MEAN PLATELET VOLUME 9.9 fL (7.4-10.4); MONOCYTES 6.3 % (2-11); NEUTROPHILS 56.8 % (40-80); PLATELET COUNT 284 10x3/uL (130-400); RBC 3.34 10x6/uL (4.00-5.40); RDW 13.4 % (11.5-14.5); WBC 8.9 10x3/uL (4.8-10.8)
[2018-10-02 07:23] LABS: CREATININE - SERUM 1.2 mg/dL (0.6-1.3)
[2018-10-02 08:15] VITALS: BP 141/65
[2018-10-02 13:44] VITALS: Ht 162.6 cm; Wt 50.8 kg
[2018-10-02 21:55] VITALS: BP 140/70
[2018-10-03 06:07] LABS: BASOPHILS 0.2 % (0-2); EOSINOPHILS 5.6 % (0-7); HEMOGLOBIN 10.4 g/dL (12-16); IMMATURE GRANULOCYTES 0.7 % (0-5); LYMPHOCYTES 30.1 % (15-50); MCH 29.6 pg (26.0-34.0); MCHC 31.5 g/dL (31.0-37.0); MEAN PLATELET VOLUME 9.9 fL (7.4-10.4); MONOCYTES 6.8 % (2-11); NEUTROPHILS 56.6 % (40-80); PLATELET COUNT 330 10x3/uL (130-400); RBC 3.51 10x6/uL (4.00-5.40); RDW 13.4 % (11.5-14.5); WBC 8.7 10x3/uL (4.8-10.8)
[2018-10-03 06:40] LABS: CALCIUM 8.4 mg/dL (8.5-10.1); CARBON DIOXIDE 27.8 mmol/L (21.0-32.0); CREATININE - SERUM 1.3 mg/dL (0.6-1.3); POTASSIUM - SERUM 3.8 mmol/L (3.5-5.1)
[2018-10-03 08:00] VITALS: BP 125/71
[2018-10-03 19:00] VITALS: BP 118/65
[2018-10-04 07:59] VITALS: BP 143/65
[2018-10-04 19:00] VITALS: BP 112/60
[2018-10-05 06:10] LABS: BASOPHILS 0.1 % (0-2); EOSINOPHILS 4.3 % (0-7); HEMATOCRIT 31.1 % (36.0-48.0); LYMPHOCYTES 32.2 % (15-50); MCH 29.6 pg (26.0-34.0); MCHC 32.2 g/dL (31.0-37.0); MEAN PLATELET VOLUME 9.9 fL (7.4-10.4); MONOCYTES 8.4 % (2-11); PLATELET COUNT 365 10x3/uL (130-400); RBC 3.38 10x6/uL (4.00-5.40); RDW 13.2 % (11.5-14.5); WBC 8.9 10x3/uL (4.8-10.8)
[2018-10-05 07:14] LABS: ANION GAP 13.3 mmol/L (8-16); CALCIUM 8.1 mg/dL (8.5-10.1); CARBON DIOXIDE 27.2 mmol/L (21.0-32.0); CREATININE - SERUM 1.4 mg/dL (0.6-1.3); POTASSIUM - SERUM 3.5 mmol/L (3.5-5.1)
[2018-10-05 08:00] VITALS: BP 142/69
[2018-10-05 19:44] VITALS: BP 142/63
[2018-10-06 08:00] VITALS: BP 140/69
[2018-10-06 20:41] VITALS: BP 138/67
[2018-10-07 13:43] VITALS: BP 131/62
[2018-10-07 19:54] VITALS: BP 130/64
[2018-10-08 06:21] LABS: BASOPHILS 0.1 % (0-2); EOSINOPHILS 4.2 % (0-7); HEMATOCRIT 29.1 % (36.0-48.0); HEMOGLOBIN 9.4 g/dL (12-16); IMMATURE GRANULOCYTES 0.7 % (0-5); LYMPHOCYTES 28.1 % (15-50); MCH 29.7 pg (26.0-34.0); MCHC 32.3 g/dL (31.0-37.0); MCV 92.1 fL (80.0-100.0); MEAN PLATELET VOLUME 9.5 fL (7.4-10.4); MONOCYTES 8.3 % (2-11); NEUTROPHILS 58.6 % (40-80); PLATELET COUNT 377 10x3/uL (130-400); RBC 3.16 10x6/uL (4.00-5.40); RDW 13.5 % (11.5-14.5); WBC 8.3 10x3/uL (4.8-10.8)
[2018-10-08 06:37] LABS: ANION GAP 11.8 mmol/L (8-16); CALCIUM 7.9 mg/dL (8.5-10.1); CARBON DIOXIDE 27.3 mmol/L (21.0-32.0); CREATININE - SERUM 1.3 mg/dL (0.6-1.3); POTASSIUM - SERUM 3.1 mmol/L (3.5-5.1)
[2018-10-08 08:25] VITALS: BP 131/67
[2018-10-08 19:44] VITALS: BP 128/60
[2018-10-09 08:00] VITALS: BP 134/70
[2018-10-09 20:00] VITALS: BP 127/50
[2018-10-10 06:12] LABS: BASOPHILS 0.2 % (0-2); EOSINOPHILS 5.7 % (0-7); HEMATOCRIT 28.9 % (36.0-48.0); HEMOGLOBIN 9.2 g/dL (12-16); IMMATURE GRANULOCYTES 0.6 % (0-5); LYMPHOCYTES 31.8 % (15-50); MCH 29.5 pg (26.0-34.0); MCHC 31.8 g/dL (31.0-37.0); MCV 92.6 fL (80.0-100.0); MEAN PLATELET VOLUME 9.3 fL (7.4-10.4); MONOCYTES 6.8 % (2-11); NEUTROPHILS 54.9 % (40-80); PLATELET COUNT 379 10x3/uL (130-400); RBC 3.12 10x6/uL (4.00-5.40); RDW 13.6 % (11.5-14.5); WBC 8.2 10x3/uL (4.8-10.8)
[2018-10-10 06:25] LABS: ANION GAP 14.5 mmol/L (8-16); CALCIUM 7.8 mg/dL (8.5-10.1); CARBON DIOXIDE 24.3 mmol/L (21.0-32.0); CREATININE - SERUM 1.3 mg/dL (0.6-1.3); POTASSIUM - SERUM 3.8 mmol/L (3.5-5.1)
[2018-10-10 08:00] VITALS: BP 135/76
[2018-10-10 19:00] VITALS: BP 127/73
[2018-10-11 08:00] VITALS: BP 140/68
[2018-10-12 02:29] VITALS: BP 136/68
[2018-10-12 07:01] LABS: BASOPHILS 0.1 % (0-2); EOSINOPHILS 5.8 % (0-7); IMMATURE GRANULOCYTES 0.6 % (0-5); LYMPHOCYTES 33.9 % (15-50); MCH 29.3 pg (26.0-34.0); MCHC 32.1 g/dL (31.0-37.0); MCV 91.2 fL (80.0-100.0); MEAN PLATELET VOLUME 9.5 fL (7.4-10.4); MONOCYTES 6.3 % (2-11); NEUTROPHILS 53.3 % (40-80); PLATELET COUNT 418 10x3/uL (130-400); RBC 3.07 10x6/uL (4.00-5.40); RDW 13.5 % (11.5-14.5); WBC 8.3 10x3/uL (4.8-10.8)
[2018-10-12 08:00] VITALS: BP 130/64
[2018-10-12 09:00] LABS: ANION GAP 17.3 mmol/L (8-16); CREATININE - SERUM 1.4 mg/dL (0.6-1.3); POTASSIUM - SERUM 3.6 mmol/L (3.5-5.1)
[2018-10-12 19:00] VITALS: BP 141/75
[2018-10-13 08:32] VITALS: BP 111/64
[2018-10-13 19:19] VITALS: BP 120/62
[2018-10-14 08:00] VITALS: BP 142/75
[2018-10-14 21:41] VITALS: BP 128/71
[2018-10-15 07:09] LABS: BASOPHILS 0.1 % (0-2); EOSINOPHILS 7.9 % (0-7); HEMATOCRIT 28.9 % (36.0-48.0); HEMOGLOBIN 9.3 g/dL (12-16); IMMATURE GRANULOCYTES 0.4 % (0-5); MCH 29.8 pg (26.0-34.0); MCHC 32.2 g/dL (31.0-37.0); MCV 92.6 fL (80.0-100.0); MEAN PLATELET VOLUME 9.4 fL (7.4-10.4); MONOCYTES 7.8 % (2-11); NEUTROPHILS 54.8 % (40-80); PLATELET COUNT 406 10x3/uL (130-400); RBC 3.12 10x6/uL (4.00-5.40); RDW 13.5 % (11.5-14.5); WBC 7.7 10x3/uL (4.8-10.8)
[2018-10-15 07:23] LABS: ANION GAP 12.6 mmol/L (8-16); CALCIUM 8.2 mg/dL (8.5-10.1); CARBON DIOXIDE 26.5 mmol/L (21.0-32.0); CREATININE - SERUM 1.3 mg/dL (0.6-1.3); POTASSIUM - SERUM 4.1 mmol/L (3.5-5.1)
[2018-10-15 08:13] VITALS: BP 130/60
[2018-10-15 19:00] VITALS: BP 130/74
[2018-10-16 08:35] VITALS: BP 129/57
[2018-10-16 19:00] VITALS: BP 138/77
[2018-10-17 07:01] LABS: BASOPHILS 0.2 % (0-2); EOSINOPHILS 8.6 % (0-7); HEMOGLOBIN 10.1 g/dL (12-16); IMMATURE GRANULOCYTES 0.2 % (0-5); LYMPHOCYTES 24.8 % (15-50); MCH 29.3 pg (26.0-34.0); MCHC 31.6 g/dL (31.0-37.0); MCV 92.8 fL (80.0-100.0); MEAN PLATELET VOLUME 9.6 fL (7.4-10.4); MONOCYTES 5.2 % (2-11); PLATELET COUNT 415 10x3/uL (130-400); RBC 3.45 10x6/uL (4.00-5.40); RDW 13.5 % (11.5-14.5); WBC 8.6 10x3/uL (4.8-10.8)
[2018-10-17 07:08] LABS: ANION GAP 14.1 mmol/L (8-16); CALCIUM 8.5 mg/dL (8.5-10.1); CARBON DIOXIDE 25.7 mmol/L (21.0-32.0); CREATININE - SERUM 1.4 mg/dL (0.6-1.3); POTASSIUM - SERUM 3.8 mmol/L (3.5-5.1)
[2018-10-17 08:00] VITALS: BP 125/62
[2018-10-17 19:00] VITALS: BP 148/73
[2018-10-18 08:00] VITALS: BP 135/77
== END 2018-10-18 16:00 | DRG 561 ==
LOC: D.REHAB 16:26
PROVIDERS: Emergency Medicine
DX: S72.002D Fracture of unspecified part of neck of left femur, subsequent encounter for closed fracture with routine healing (principal); Z47.1 Aftercare following joint replacement surgery; Z96.642 Presence of left artificial hip joint; W19.XXXD Unspecified fall, subsequent encounter; E87.6 Hypokalemia; E78.5 Hyperlipidemia, unspecified; E03.9 Hypothyroidism, unspecified; G30.9 Alzheimer's disease, unspecified; F02.80 Dementia in other diseases classified elsewhere, unspecified severity, without behavioral disturbance, psychotic disturbance, mood disturbance, and anxiety; F32.9 Major depressive disorder, single episode, unspecified; R53.1 Weakness; N28.9 Disorder of kidney and ureter, unspecified; K21.9 Gastro-esophageal reflux disease without esophagitis; E11.65 Type 2 diabetes mellitus with hyperglycemia; F41.8 Other specified anxiety disorders

== ENCOUNTER 2018-11-05 01:26 | Inpatient (IN) | payer MEDICARE, OTHER ==
[~2018-11-05] VITALS: Ht 162.6 cm; Wt 70.5 kg
[~2018-11-05 01:26] MED LIST changes: +PRAVACHOL40 MG PO; -PRAVASTATIN SOD10 MG PO
[2018-11-05] MEDS ORDERED: FUROSEMIDE20 MG PO (01:32)
[2018-11-05] MEDS ORDERED: KLOR-CON 1010 MEQ PO (01:32)
[2018-11-05] MEDS ORDERED: ACETAMINOPHEN500 M1 PO (01:32)
[2018-11-05] MEDS ORDERED: LEXAPRO10 MG PO (01:32)
[2018-11-05] MEDS ORDERED: AUGMENTIN 875-11 TAB PO ×2 (01:33→16:22)
[2018-11-05 02:43] LABS: BASOPHILS 0.1 % (0-2); EOSINOPHILS 4.6 % (0-7); HEMATOCRIT 29.2 % (36.0-48.0); HEMOGLOBIN 9.3 g/dL (12-16); IMMATURE GRANULOCYTES 0.6 % (0-5); LYMPHOCYTES 15.9 % (15-50); MCH 28.7 pg (26.0-34.0); MCHC 31.8 g/dL (31.0-37.0); MCV 90.1 fL (80.0-100.0); MEAN PLATELET VOLUME 9.4 fL (7.4-10.4); MONOCYTES 4.5 % (2-11); NEUTROPHILS 74.3 % (40-80); PLATELET COUNT 515 10x3/uL (130-400); RBC 3.24 10x6/uL (4.00-5.40); RDW 13.4 % (11.5-14.5); WBC 14.5 10x3/uL (4.8-10.8)
[2018-11-05 02:45] LABS: APTT 38.2 SECONDS (22.8-39.4); INR 1.98 (0.85-1.17); PROTIME 21.9 SECONDS (11.6-15.0)
[2018-11-05 02:49] LABS: ALBUMIN 2.1 g/dL (3.4-5.0); ALKALINE PHOSPHATASE 100 U/L (46-116); ALT (SGPT) 225 U/L (10-68); CALC OSMOLALITY 270 mosm/kg (275-300); CALCIUM 8.4 mg/dL (8.5-10.1); CARBON DIOXIDE 26.6 mmol/L (21.0-32.0); CHLORIDE - SERUM 96 mmol/L (98-107); CREATININE - SERUM 1.3 mg/dL (0.6-1.3); GLUCOSE 142 mg/dL (74-106); POTASSIUM - SERUM 3.8 mmol/L (3.5-5.1); PROTEIN - SERUM 7.2 g/dL (6.4-8.2); SODIUM 134 mmol/L (136-145); UREA NITROGEN 16 mg/dL (7-18); eGFR NON AFRICAN AMERICAN 42 mL/min (90-120)
[2018-11-05 02:59] LABS: CKMB 0.4 U/L (0.0-3.6); CREATINE KINASE 32 UL (21-215); PRO BNP 6387 pg/mL (0-450); TROPONIN-I 0.042 ng/mL (0.000-0.060)
[2018-11-05 03:30] LABS: APPEARANCE CLEAR (CLEAR); BILIRUBIN NEGATIVE (NEGATIVE); COLOR YELLOW (YELLOW); GLUCOSE NEGATIVE (NEGATIVE); KETONE NEGATIVE (NEGATIVE); NITRITE NEGATIVE (NEGATIVE); PROTEIN NEGATIVE (NEGATIVE); SPECIFIC GRAVITY 1.015 (1.005-1.020); UROBILINOGEN NORMAL (NORMAL)
[2018-11-05 03:55] VITALS: BP 125/59
[2018-11-05 04:46] VITALS: BP 127/62
--- NOTE | 2018-11-05 05:50 | NUR ---
VANCOMYCIN COMPLETED AT THIS TIME
[2018-11-05 05:52] VITALS: BP 122/71
[2018-11-05 07:31] VITALS: BP 107/54
--- NOTE | 2018-11-05 08:37 | NUR ---
PT LYING IN BED ASLEEP, EMPTIED 2000CC OUT OF PT ASHLEE, PT STATED SHE WAS NOT HUNGRY, NO S/S OF DISTRESS, BED IN LOWEST POSTIION, CL IN REACH CONTINUE WITH PLAN OF CARE
--- NOTE | 2018-11-05 09:53 | MORECARE ---
CASE MANAGEMENT DISCHARGE SUMMARY PATIENT: DEVIN MABRY UNIT: [id number] ADM DATE: 11/05/18 AGE: 78 : 40 SEX: F ROOM/BED: D.E02 AUTHOR: JULIET GOEL PHYSICIAN: REFERRING PHYSICIAN: ASH GARRISON MD DATE OF SERVICE: 11/05/18 Discharge Plan Patient Name: DEVIN MABRY Facility: [facility]:[place] : 1940 Planned Disposition: Anticipated Discharge Date: 11/07/18 Discharge Date: Expected LOS: 2 Initial Reviewer: [email or web address] Initial Review Date: 11/05/2018 Generated: 11/05/18 10:53 am Patient Name: DEVIN MABRY Page 09564 at 0953 All edits/amendments must be made on the electronic document DICTATION DATE: 11/05/18952 OFFICE AUTOMATION TECHNICIAN: DM 11/05/18952 RPT#: [id number] DC DATE: STATUS: ADM IN [facility] [address] [place] [address] END OF REPORT
--- NOTE | 2018-11-05 10:01 | MORECARE ---
CASE MANAGEMENT DISCHARGE SUMMARY PATIENT: DEVIN SCHNEIDER UNIT: [id number] ADM DATE: 11/05/18 AGE: 78 : 40 SEX: F ROOM/BED: D.E02 AUTHOR: JULIET GOEL PHYSICIAN: REFERRING PHYSICIAN: ASH GARRISON MD DATE OF SERVICE: 11/05/18 Discharge Plan Patient Name: DEVIN SCHNEIDER Facility: [facility]:[place] : 1940 Planned Disposition: Anticipated Discharge Date: 11/07/18 Discharge Date: Expected LOS: 2 Initial Reviewer: [email or web address] Initial Review Date: 11/05/2018 Generated: 11/05/18 11:01 am DCPIA - Discharge Planning Initial Assessment Updated by [email or web address]: Daine Acevedo on 11/05/18 9:59 am * Is the patient Alert and Oriented? No * How many steps to enter\exit or inside your home? none * PCP Dr. Chacho Goodman * Pharmacy [facility] * Preadmission Environment [facility] Facility * Facility Name [facility] * ADLs Partial Dependent * Partial ADLs (Assistance needed) Ambulation Bathing Dressing Medication Management Transfers * Equipment Wheelchair * Other Equipment Spouse reports patient is mostly wc bound when up during the day. * List name and contact numbers for known caregivers / representatives who currently or will assist patient after discharge: Christopher Schneider - spouse - [phone] * Verbal permission to speak to the caregivers and representatives has been obtained from the patient. Yes * Community resources currently utilized Assisted Living * Please name any agencies selected above. [facility] Resident [facility] * Additional services required to return to the preadmission environment? No * Can the patient safely return to the preadmission environment? Yes * Has this patient been hospitalized within the prior 30 days at any hospital? Yes Last DP export: 11/05/18 8:53 am Patient Name: DEVIN SCHNEIDER Page 78402 at 1001 All edits/amendments must be made on the electronic document DICTATION DATE: 11/05/18 1001 ACCOUNTING TECHNICIAN: CARRIE 11/05/18 1001 RPT#: [id number] DC DATE: STATUS: ADM IN [facility] [address] [facility] [place] [address] END OF REPORT
--- NOTE | 2018-11-05 10:09 | MORECARE ---
CASE MANAGEMENT DISCHARGE SUMMARY PATIENT: DEVIN SCHNEIDER UNIT: [id number] ADM DATE: 11/05/18 AGE: 78 : 40 SEX: F ROOM/BED: D.E02 AUTHOR: JULIET GOEL PHYSICIAN: REFERRING PHYSICIAN: ASH GARRISON MD DATE OF SERVICE: 11/05/18 Discharge Plan Patient Name: DEVIN SCHNEIDER Facility: [facility]:[place] : 1940 Planned Disposition: Anticipated Discharge Date: 11/07/18 Discharge Date: Expected LOS: 2 Initial Reviewer: [email or web address] Initial Review Date: 11/05/2018 Generated: 11/05/18 11:09 am DCP- Discharge Planning Updated by [email or web address]: Diane Acevedo on 11/05/18 9:[address] Patient Name: DEVIN SCHNEIDER Admission Status: ER Accout number: [id number] Admission Date: 11-05-2018 : 1940 Admission Diagnosis: Attending: ASH GARRISON Current LOS: 1 Anticipated DC Date: 11-07-2018 Planned Disposition: Primary Insurance: MEDICARE A & B Discharge Planning Comments: CM met with patient to complete initial dc planning assessment. CM educated patient on the CM role and patient couldn't stay awake to complete assessment. CM called her spouse Christopher Schneider @ [phone] to complete assessment. Patient is a resident at [facility] but is currently at [facility] due to increased weakness. At discharge Christopher said that patient will return to [facility] to complete her rehab and feels this is a safe discharge. Patient is mostly in a wheelchair during the day but is able to transfer and walk with assistance. She requires assistance awiht all ADL's due to her memory. CM will continue to follow and will assist as needed with dc plans/needs. Confidential Investigator: Diane Acevedo RN, [facility] DCPIA - Discharge Planning Initial Assessment Updated by [email or web address]: Diane Acevedo on 11/05/18 9:59 am * Is the patient Alert and Oriented? No * How many steps to enter\exit or inside your home? none * PCP Dr. Chacho Goodman * Pharmacy [facility] * Preadmission Environment Senior Living Facility * Facility Name [facility] * ADLs Partial Dependent * Partial ADLs (Assistance needed) Ambulation Bathing Dressing Medication Management Transfers * Equipment Wheelchair * Other Equipment Spouse reports patient is mostly wc bound when up during the day. * List name and contact numbers for known caregivers / representatives who currently or will assist patient after discharge: Christopher Schneider - spouse - [phone] * Verbal permission to speak to the caregivers and representatives has been obtained from the patient. Yes * Community resources currently utilized Assisted Living * Please name any agencies selected above. [facility] for Rehab. Resident [facility] * Additional services required to return to the preadmission environment? No * Can the patient safely return to the preadmission environment? Yes * Has this patient been hospitalized within the prior 30 days at any hospital? Yes Last DP export: 11/05/18 9:01 am Patient Name: DEVIN SCHNEIDER Page 98064 at 1009 All edits/amendments must be made on the electronic document DICTATION DATE: 11/05/18 1009 WESTERN PHILOSOPHY PROFESSOR: CARRIE 11/05/18 1009 RPT#: [id number] DC DATE: STATUS: ADM IN [facility] [address] [place] [address] END OF REPORT
--- NOTE | 2018-11-05 11:50 | NUR ---
CALLED AND GAVE REPORT TO CARRI ON WOMENS, ADVISED I WILL START [facility] SINCEWOMENS DID NOT HAVE SUPPLIES
--- NOTE | 2018-11-05 12:35 | NUR ---
ARRIVE TO ROOM VIA BED. CONFUSED. VERBALLY DISRUPTIVE. DEMANDING TO TALK WITH SOMEONE OF AUTHORITY. Love TURNER. ARRIVE TO ROOM. ARGUES WITH EVERYONE THAT INTERS ROOM. ROSADO DRAINING BY GRAVITY. CONTINUE ADMISSION PROCESS.
[2018-11-05 14:19] VITALS: BP 146/67
--- NOTE | 2018-11-05 17:51 | NUR ---
OT NOTE: FAMILY AT BEDSIDE; ATTEMPTED EVALUATION BUT UNABLE TO AROUSE PT TO PERFORM. WILL ATTEMPT TOMORROW. JANET MARY, OTR/L
--- NOTE | 2018-11-05 18:19 | NUR ---
REPORT CALLED TO ROSA NAVARRETE. TRANSFER TO ROOM 8830
--- NOTE | 2018-11-05 19:30 | NUR ---
RECEIVED REPORT, WILL ASSUME CARE OF PT, FAMILY AT BEDSIDE, DENIES ANY NEEDS AT THIS TIME, BED IS LOW, SRX2, CALL LIGHT IN REACH, BOX ALARM IS ATTACHED, WILL CONTINUE PLAN OF CARE
--- NOTE | 2018-11-05 20:30 | NUR ---
[id number] COVERAGE NEEDED AT THIS TIME,CALL LIGHT IN REACH, FAMILY IS NOW LEAVING, WILL CONTINUE PLAN OF CARE
[2018-11-05 20:56] VITALS: BP 108/91
--- NOTE | 2018-11-05 23:27 | NUR ---
HEARD PATIENT VOICE FOR HELP. FOUND PATIENT WITH GOWN OFF IV SELF DCED WITH CATH INTACT SOB I ASSSISTED UP IN BED AND REAPPLIED O2 PER NASAL CANULA. REAPPLIED GOWN AND ALARM. ROSADO IS INTACT SR UP X3. NO BLEEDING FROM IV SITE WILL NOTIFY ASSIGNED NURSE
--- NOTE | 2018-11-05 23:27 | NUR ---
CORRECTION OFFICER PENITENTIARY AT BEDSIDE TO OBTAIN VITALS, CALL LIGHT IN REACH. WILL CONTINUE WITH PLAN OF CARE.
--- NOTE | 2018-11-05 23:50 | NUR ---
RESITED IV TO LEFT ARM..22GAUGE PERIF. SITE SECURDED WITH TAPE AND OPSITE. FLUSHED AND RESTARTED CURRENT FLUIDS AT 100ML PER HOUR
[2018-11-06 02:02] VITALS: BP 114/53
[2018-11-06 06:08] LABS: BASOPHILS 0.2 % (0-2); EOSINOPHILS 4.1 % (0-7); IMMATURE GRANULOCYTES 0.5 % (0-5); MCH 28.7 pg (26.0-34.0); MCV 89.6 fL (80.0-100.0); MEAN PLATELET VOLUME 9.2 fL (7.4-10.4); MONOCYTES 4.7 % (2-11); NEUTROPHILS 74.5 % (40-80); PLATELET COUNT 478 10x3/uL (130-400); RBC 2.79 10x6/uL (4.00-5.40); RDW 13.7 % (11.5-14.5); WBC 13.1 10x3/uL (4.8-10.8)
[2018-11-06 06:09] VITALS: BP 99/60
--- NOTE | 2018-11-06 06:15 | NUR ---
BLOODSUGAR*124-NO COVERAGE
[2018-11-06 06:25] LABS: ANION GAP 15.2 mmol/L (8-16); CALCIUM 7.7 mg/dL (8.5-10.1); CARBON DIOXIDE 27.4 mmol/L (21.0-32.0); CREATININE - SERUM 1.3 mg/dL (0.6-1.3); POTASSIUM - SERUM 3.6 mmol/L (3.5-5.1)
[2018-11-06 09:34] VITALS: BP 135/69
[2018-11-06] MEDS ORDERED: KLONOPIN0.5 MG PO (10:46)
[2018-11-06] MEDS ORDERED: VITAMIN D5000 UNIT PO (10:50)
--- NOTE | 2018-11-06 11:26 | NUR ---
CASTING SUPERVISOR INFORMED THAT PT O2 SAT IS 57. PT CO NOT ABLE TO GET HER BREATH. RESP HERE AND ABGS ORDERED AND PT PLACED ON HIGH O2. PT IS DISORIENTED. COLOR IS PALE. BP 147/67. P-111. R 28. WHEEZING AND COUGHING NOTED.
--- NOTE | 2018-11-06 11:32 | NUR ---
RAPID RESPONSE CALLED. BLOOD GASES DRAWN. BP-138/75, HIGH FLOW NC AT 15L O2 SAT 82%, TELEMETRY PLACED. SINUS TACH ON TELEMETRY. NONREBREATHER PLACED, O2 SAT 92%. 1140: IV LASIX ADMINISTERED. RAPID RESPONSE TEAM AT BEDSIDE. PATIENT STABLE. SEE RAPID RESPONSE SHEET ON CHART. CONTINUE PLAN OF CARE AND SAFETY PRECAUTIONS. CONTINUOUS PULSE OX FOR NEXT HOUR.
[2018-11-06 13:04] VITALS: Ht 162.6 cm; Wt 70.5 kg
[2018-11-06 13:11] VITALS: BP 147/67
--- NOTE | 2018-11-06 15:13 | CN ---
PATIENT NAME:DEVIN MABRY MEDICAL RECORD: [id number] : 40 LOCATION:[place] D.2134 ADMIT DATE: 11/05/18 ACCOUNT: [id number] CONSULTING PHYSICIAN: MIKI MORALES MD REFERRING PHYSICIAN: ASH GARRISON MD DATE OF CONSULTATION: 11/05/2018 PSYCHIATRIC CONSULTATION IDENTIFYING DATA: The patient is 78 years old and known to me from previous clinical contact. CHIEF COMPLAINT: Confusion and agitation. HISTORY OF PRESENT ILLNESS: The patient is actually very well known to me from multiple and very extensive inpatient treatment on the behavioral unit. She has an advanced dementia and has associated with this some serious behavior problems. She has been extensively hospitalized because of this. Currently, she is admitted to the hospital because of pneumonia and has had some agitation associated with it. She is significantly impaired and primarily just oriented to person and place, although at this time she is somewhat sedated. ASSESSMENT: Senile dementia of the Alzheimer's type with behavioral disturbances. PLAN: The patient, in my view, can be reasonably managed with p.r.n. dose of Geodon and/or Ativan and I shall order both. If behaviors become so disruptive, this is possible. It is appropriate to consider transferring her to the behavioral unit. This would be only if she is stable from a medical standpoint with regard to her pneumonia. Her prognosis is quite guarded, again even when she did not have the pneumonia and the probable confusion associated with it. She was a difficult individual to manage. TRANSINT:[id number] Voice Confirmation ID: [id number] DOCUMENT ID: [id number] MIKI MORALES MD at 1513 CC: [id number] DICTATION DATE: 11/05/18 1532 ELECTRICIAN MACHINE SHOP: 11/05/18 1620 ADM IN [facility] [address] [place] [address]
--- NOTE | 2018-11-06 16:47 | NUR ---
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 Red shiny wound bed with non-blanchable redness surrounding wound. Excoriation noted on inner thighs and perineal area. Recommended mepilex sacral dressing to wound and calmoseptine cream to thighs and perineal area. Wound care will continue monitoring.
--- NOTE | 2018-11-06 17:00 | NUR ---
APPLY ICE PACKS UNDER ARMS BILATERALLY FOR TEMP 100.3. LEAVE ONE SHEET ON. BED COMPLETE BED BATH AND LINEN CHANGE COMPLETE. DRESSING ON BUTTOCKS CHANGED. SINUS TACH ON TELEMETRY 108. CONTINUE TO MONITOR.
--- NOTE | 2018-11-06 17:16 | NUR ---
ALERT AND ORIENTED X4. SITTING UP IN BED. RT FOOT DRESSING CHANGED. WOUND BEDS HEALING. LOTION APPLIED TO LT FOOT PER PATIENT REQUEST. FEET ELEVATED ON PILLOW. HEEL PROTECTOR BOOTY ON RT FOOT. CONTINUE PLAN OF CARE AND SAFETY PRECAUTIONS.
[2018-11-06 17:38] VITALS: BP 130/64
--- NOTE | 2018-11-06 18:46 | NUR ---
RECHECK TEMP. TEMP 101.3. ADMINISTER TYLENOL, PLACE COLD RAG ON FOREHEAD. ICE PACKS RETURNED UNDER ARM BILATERALLY. CONTINUE PLAN OF CARE AND SAFETY PRECAUTIONS.
--- NOTE | 2018-11-06 19:40 | NUR ---
PT IS AAO X2, HAS HISTORY OF DEMENTIA AND ALTERED MENTAL STATUS. BEDALARM ON AND ACTIVE. PT HAS AT BEDSIDE. PT SITTING UP IN BED. HEELS ELEVATED. LEFT HEEL HAS BLISTER,NOT OPEN BOGGY FEELING. PT HAS +1+2 EDEMA LOWER EXTREM. LEFT FA IV 22G S/L. PT PAD WAS WET FROM ICE PACK. CHANGED PT PAD AND REPOSITIONED. MEPALEX ON COCCYX AREA CDI. PT HAS CALL LIGHT IN REACH. NAME AND DATE PLACED ON BOARD. WILL CPOC
--- NOTE | 2018-11-06 20:39 | NUR ---
PT TEMP IS 98.0
[2018-11-06 20:40] VITALS: BP 104/99
--- NOTE | 2018-11-07 00:04 | NUR ---
PT ASLEEP. 10L OXY,RESP EVEN AND UNLABORED. BREATHING WITH MOUTH WIDE OPEN. NO S/S OF DISTRESS. BEDLOW AND CALL LIGHT IN REACH. WILL CPOC
[2018-11-07 00:56] VITALS: BP 131/63
--- NOTE | 2018-11-07 02:39 | NUR ---
PT ASLEEP. AROUSES TO VERBAL STIMULI, REPOSTITIONED PT. PT HAS NO S/S OF DISTRESS. BEDLOW AND CALL LIGHT IN REACH. WILL CPOC
--- NOTE | 2018-11-07 04:06 | NUR ---
PT O2 SAT STARTING TO DROP, TURNED OXY UP TO 15L FROM 10L. O2 SAT IS 67% RESP IN ROOM. DRAWING ABG TO GET A TRUE O2 READING. WILL CONTINUE TO MONITOR
--- NOTE | 2018-11-07 04:18 | NUR ---
PT ABG SHOWING 46.2 O2. PT PLACED ON A NON REBREATHER. MONITORING PT CLOSELY.WILL CPOC
--- NOTE | 2018-11-07 05:03 | NUR ---
INSTRUCTED PT TO TAKE DEEP BREATHS DUE TO SHALLOW BREATHING. PT TOOK 1-2 GOOD BREATHS. PT HAS DEMENTIA. NEEDS CONSTANT REMINDING. PT IS ON NON REBREATHER. 98% NO CHANGES AT THIS TIME WILL CPOC
[2018-11-07 06:09] VITALS: BP 137/77
[2018-11-07 06:20] LABS: ALBUMIN 1.7 g/dL (3.4-5.0); BASOPHILS 0.1 % (0-2); BILIRUBIN - TOTAL 0.42 mg/dL (0.2-1.3); CALCIUM 8.2 mg/dL (8.5-10.1); CARBON DIOXIDE 32.4 mmol/L (21.0-32.0); CREATININE - SERUM 1.4 mg/dL (0.6-1.3); EOSINOPHILS 7.7 % (0-7); HEMATOCRIT 29.1 % (36.0-48.0); HEMOGLOBIN 9.1 g/dL (12-16); IMMATURE GRANULOCYTES 0.6 % (0-5); LYMPHOCYTES 8.2 % (15-50); MCH 28.4 pg (26.0-34.0); MCHC 31.3 g/dL (31.0-37.0); MCV 90.9 fL (80.0-100.0); MEAN PLATELET VOLUME 9.7 fL (7.4-10.4); MONOCYTES 3.5 % (2-11); NEUTROPHILS 79.9 % (40-80); PLATELET COUNT 510 10x3/uL (130-400); POTASSIUM - SERUM 3.4 mmol/L (3.5-5.1); PROTEIN - SERUM 6.5 g/dL (6.4-8.2); RDW 13.8 % (11.5-14.5); VANCOMYCIN - TROUGH 12.2 ug/mL (10.0-20.0)
--- NOTE | 2018-11-07 06:28 | NUR ---
PT FSBS IS 147 NO INSULIN NEEDED PER SLIDING SCALE. PT STILL ON NON REBREATHER. O2 99% HR IS 74. PT ASLEEP AROUSES TO VERBAL AND PHYSICAL STIMULI. REPOSITONED IN BED. DENIES ANY NEEDS. NO S/S OF DISTRESS. WILL CPOC
[2018-11-07 06:52] LABS: WBC 17.5 10x3/uL (4.8-10.8)
--- NOTE | 2018-11-07 07:30 | NUR ---
RECEIVED POSITIONED ON BACK WITH O2 ON AT 15 L/M PER NON REBREATHER. PULSE OX READING AT 98%. WAKENED EASILY TO HER NAME BUT IS CONFUSED TO PLACE, TIME AND SITUATION. ROSADO INTACT AND DRAINING LIGHT YELLOW COLORED URINE. IV PATENT TO LEFT FOREARM WITHOUT REDNESS OR EDEMA. BED IN LOWEST POSITION WITH SIDERAILS UP X 2 AND CALL LIGHT IN REACH. ALARM SYSTEM ON ALTHOUGHT PT DOES NOT MOVE MUCH ON HER OWN IN THE BED. NO REQUESTS VOICED. ASSESSMENT COMPLETED.
[2018-11-07 08:06] VITALS: BP 126/56
--- NOTE | 2018-11-07 10:32 | NUR ---
RESP UL ON NRB. AT BS. CALL LIGHT IN REACH. WILL MONITOR NEEDS.
[2018-11-07 11:22] VITALS: BP 106/52
[2018-11-07 15:40] VITALS: BP 110/57
--- NOTE | 2018-11-07 16:59 | NUR ---
OT NOTE: ATTEMPTED THERAPY IN PM, HOWEVER, PT UNABLE TO STAY AWAKE. CURRENTLY ON INCREASED AMOUNT OF 02. EASY TO AROUSE BUT DIFFICULT TO STAY AWAKE. ATTEMPTED BED MOB BUT PT UNABLE TO FOLLOW COMMANDS. WILL ATTEMPT TOMORROW. JANET MARY, OTR/L
--- NOTE | 2018-11-07 17:43 | NUR ---
OT NOTE: PT COMPLETED BUE AROM EXS. PT COMPLETED GROOMING AX WITH SET UP. THANK YOU, TONEY PEREZ
--- NOTE | 2018-11-07 17:46 | MORECARE ---
CASE MANAGEMENT DISCHARGE SUMMARY PATIENT: DEVIN SCHNEIDER UNIT: [id number] ADM DATE: 11/05/18 AGE: 78 : 40 SEX: F ROOM/BED: D.3148 AUTHOR: JULIET GOEL PHYSICIAN: REFERRING PHYSICIAN: ASH GARRISON MD DATE OF SERVICE: 11/07/18 Discharge Plan Patient Name: DEVIN SCHNEIDER Facility: [facility]:[place] : 1940 Planned Disposition: Anticipated Discharge Date: 11/07/18 Discharge Date: Expected LOS: 2 Initial Reviewer: [email or web address] Initial Review Date: 11/05/2018 Generated: 11/07/18 6:46 pm DCP- Discharge Planning Updated by [email or web address]: Diane Acevedo on 11/05/18 9:[address] Patient Name: DEVIN SCHNEIDER Admission Status: ER Accout number: [id number] Admission Date: 11-05-2018 : 1940 Admission Diagnosis: Attending: ASH GARRISON Current LOS: 1 Anticipated DC Date: 11-07-2018 Planned Disposition: Primary Insurance: MEDICARE A & B Discharge Planning Comments: CM met with patient to complete initial dc planning assessment. CM educated patient on the CM role and patient couldn't stay awake to complete assessment. CM called her spouse Christopher Schneider @ [phone] to complete assessment. Patient is a resident at [facility] but is currently at [facility] due to increased weakness. At discharge Christopher said that patient will return to [facility] to complete her rehab and feels this is a safe discharge. Patient is mostly in a wheelchair during the day but is able to transfer and walk with assistance. She requires assistance awiht all ADL's due to her memory. CM will continue to follow and will assist as needed with dc plans/needs. Clay Miner: Diane Acevedo RN, [facility] DCPIA - Discharge Planning Initial Assessment Updated by [email or web address]: Diane Acevedo on 11/05/18 9:59 am * Is the patient Alert and Oriented? No * How many steps to enter\exit or inside your home? none * PCP Dr. Chacho Goodman * Pharmacy [facility] * Preadmission Environment [facility] Facility * Facility Name [facility] * ADLs Partial Dependent * Partial ADLs (Assistance needed) Ambulation Bathing Dressing Medication Management Transfers * Equipment Wheelchair * Other Equipment Spouse reports patient is mostly wc bound when up during the day. * List name and contact numbers for known caregivers / representatives who currently or will assist patient after discharge: Christopher Schneider - spouse - [phone] * Verbal permission to speak to the caregivers and representatives has been obtained from the patient. Yes * Community resources currently utilized Assisted Living * Please name any agencies selected above. [facility] for Rehab. Resident [facility] * Additional services required to return to the preadmission environment? No * Can the patient safely return to the preadmission environment? Yes * Has this patient been hospitalized within the prior 30 days at any hospital? Yes External Providers External Provider: [facility] Next Contact Date: 11/07/2018 Service Request Date: Service Type: Resolution: Reviewer: Comments: Last DP export: 11/05/18 9:09 am Patient Name: DEVIN SCHNEIDER Page 16094 at 1746 All edits/amendments must be made on the electronic document DICTATION DATE: 11/07/181744 DRESSAGE JUDGE: CARRIE 11/07/181744 RPT#: [id number] DC DATE: STATUS: ADM IN [facility] [address] [place] [address] END OF REPORT
--- NOTE | 2018-11-07 19:45 | CN ---
PATIENT NAME:DEVIN SCHNEIDER MEDICAL RECORD: [id number] : 40 LOCATION:[place] D.2134 ADMIT DATE: 11/05/18 ACCOUNT: [id number] CONSULTING PHYSICIAN: OJ AIKEN MD REFERRING PHYSICIAN: ASH GARRISON MD DATE OF CONSULTATION: 11/05/2018 CONSULT REQUESTING PHYSICIAN: Anita Adam MD REASON FOR CONSULTATION: Acute hypoxic respiratory failure and bilateral pneumonia. HISTORY OF PRESENT ILLNESS: Ms. Schneider is a 78-year-old female who has a history of dementia, skilled nursing resident. The history was taken by reviewing the patient's note. The patient brought into the ER with shortness of breath, coughing that was acute in onset. She was saturating 92% on 4 liters. Now, her oxygen requirement is increased to 9 liters nasal cannula. REVIEW OF SYSTEMS: As in history of present illness. PAST MEDICAL HISTORY: 1. Dementia. 2. Diabetes mellitus. 3. Hypothyroidism. 4. Hyperlipidemia and gastroesophageal reflux. 5. Anxiety, depression, dementia. PAST SURGICAL HISTORY: Hysterectomy. ALLERGIES: SHE IS ALLERGIC TO CEPHALEXIN AND LEVOFLOXACIN. MEDICATIONS: [employer] is reviewed. PERSONAL AND SOCIAL HISTORY: The patient is a nonsmoker, nondrinker. FAMILY HISTORY: Noncontributory. PHYSICAL EXAMINATION: GENERAL: Now, the patient is lying comfortably, but she is not in acute distress. VITAL SIGNS: The blood pressure is 130/64, pulse is 102, respiration is 24, temperature 100.9, and SPO2 is 90% on 10 liters nasal cannula. HEENT: Conjunctivae are pink. Sclerae are not icteric. NECK: Supple, no JVD. CHEST: The chest excursion is minimal with bilateral crackles. No wheezing. HEART: Rhythm regular, normal sound, no murmur. ABDOMEN: Soft, bowel sounds present. No hepatosplenomegaly. RECTAL: Deferred. EXTREMITIES: No cyanosis, no clubbing, no pedal edema. CENTRAL NERVOUS SYSTEM: The patient is awake and alert. There is no obvious cranial nerve abnormality, but the patient is confused. LABORATORY DATA: CBC: WBC 14.5, hemoglobin 9.3, hematocrit 29.2. ABG: The pH is 7.45, pCO2 is 34.8, pO2 is 66, bicarbonate 24.5, this was done on 100% nonrebreather. Chemistry: Sodium 139, potassium 3.6, BUN is 16, creatinine is CONSULT REPORT [id number] DEVIN SCHNEIDER C 1.3, bicarbonate is 27.4. IMPRESSION: 1. Acute hypoxic respiratory failure. 2. Bilateral pneumonia, possible community-acquired pneumonia, possible aspiration with a history of gastroesophageal reflux disease. 3. Leukocytosis secondary to pneumonia. 4. Dementia. 5. Pulmonary edema. 6. Congestive heart failure, possible chronic systolic dysfunction. RECOMMENDATION: 1. Continue vancomycin IV, meropenem IV to cover for the HAP. 2. Supplemental oxygen. 3. Hep-Lock IV. 4. GERD precaution. 5. Swallowing evaluation. Follow up labs and chest radiograph. 6. Lasix [address] Adam, thank you for involving me in the care of Ms. Schneider. TRANSINT:[id number] Voice Confirmation ID: [id number] DOCUMENT ID: [id number] OJ AIKEN MD at 1945 CC: [id number] DICTATION DATE: 11/06/181755 BLASTING ENTRYMAN: 11/06/181945 ADM IN [facility] [address] [place] [address]
--- NOTE | 2018-11-07 20:00 | NUR ---
RESTING IN BED FAMILY AT BEDSIDE, RESP SHALLOW O2 IN USE NON REBREATHER. IV INFUSING AT KVO RATE ROSADO CATH DRAINING YELLOW URINE NO ACCUTE DISTRESS NOTED
[2018-11-07 21:07] VITALS: BP 113/46
[2018-11-08 01:12] VITALS: BP 106/47
[2018-11-08 06:11] VITALS: BP 119/69
[2018-11-08 06:48] LABS: ALBUMIN 1.6 g/dL (3.4-5.0); ANION GAP 14.6 mmol/L (8-16); BILIRUBIN - TOTAL 0.35 mg/dL (0.2-1.3); CALCIUM 8.2 mg/dL (8.5-10.1); CARBON DIOXIDE 30.4 mmol/L (21.0-32.0); CREATININE - SERUM 1.3 mg/dL (0.6-1.3); PROTEIN - SERUM 6.2 g/dL (6.4-8.2)
[2018-11-08 07:10] LABS: HEMATOCRIT 27.3 % (36.0-48.0); HEMOGLOBIN 8.8 g/dL (12-16); LYMPHOCYTES 12.2 % (15-50); MCH 29.3 pg (26.0-34.0); MCHC 32.2 g/dL (31.0-37.0); MEAN PLATELET VOLUME 9.3 fL (7.4-10.4); NEUTROPHILS 82.8 % (40-80); RDW 12.9 % (11.5-14.5); WBC 14.9 10x3/uL (4.8-10.8)
[2018-11-08 07:13] LABS: PLATELET COUNT 389 10x3/uL (130-400)
[2018-11-08 07:49] VITALS: BP 108/42
--- NOTE | 2018-11-08 10:00 | NUR ---
PT STATING SHE "FEELS SMOTHERED AND CAN'T BREATHE." PT ON 15L NON REBREATHER MASK AND O2 SAT IS 68%. RAPID RESPONSE CALLED. ABG'S TAKEN. MD CALLED BY ICU NURSE ORDERS RECEIVED PT NOW DNR, BIPAP BATTERY HAND, AND ATIVAN Q6HP. PT O2 SAT 91%-95% ON BIPAP. PT'S AT BEDSIDE DURING THIS TIME AND ICU NURSE SPOKE WITH HIM. WILL CONTINUE TO MONITOR PT.
--- NOTE | 2018-11-08 10:04 | NUR ---
Nutrition follow-up: Diet: REgular mechanical soft with thin liquids PO intake very poor due to confusion; ~10% average of meals Labs reviewed Wt: 156# RDN will order Ensure with meals and encourage increased po intake. If po intake remains poor may need to consider PEG tube placement and nutrition support. RDN following.
[2018-11-08 11:28] VITALS: BP 104/66
--- NOTE | 2018-11-08 11:30 | NUR ---
PT IN BED EYES CLOSED. BIPAP ON. SHALLOW BREATHING. AT BEDSIDE. WILL CONTINUE TO MONITOR. BED LOW. CL IN REACH.
--- NOTE | 2018-11-08 12:00 | NUR ---
RESTS IN BED WITH C-PAP ON. IV PATENT. CALL LIGHT IN REACH. WILL CONT. TO MONITOR NEEDS.
--- NOTE | 2018-11-08 12:08 | MORECARE ---
CASE MANAGEMENT DISCHARGE SUMMARY PATIENT: DEVIN SCHNEIDER UNIT: [id number] ADM DATE: 11/05/18 AGE: 78 : 40 SEX: F ROOM/BED: D.2456 AUTHOR: JULIET GOEL PHYSICIAN: REFERRING PHYSICIAN: ASH GARRISON MD DATE OF SERVICE: 11/08/18 Discharge Plan Patient Name: DEVIN SCHNEIDER Facility: [facility]:[place] : 1940 Planned Disposition: Inpatient Psych Facility Anticipated Discharge Date: 11/07/18 Discharge Date: Expected LOS: 2 Initial Reviewer: [email or web address] Initial Review Date: 11/05/2018 Generated: 11/08/18 1:08 pm DCP- Discharge Planning Updated by [email or web address]: Diane Acevedo on 11/05/18 9:[address] Patient Name: DEVIN SCHNEIDER Admission Status: ER Accout number: [id number] Admission Date: 11-05-2018 : 1940 Admission Diagnosis: Attending: ASH GARRISON Current LOS: 1 Anticipated DC Date: 11-07-2018 Planned Disposition: Primary Insurance: MEDICARE A & B Discharge Planning Comments: CM met with patient to complete initial dc planning assessment. CM educated patient on the CM role and patient couldn't stay awake to complete assessment. CM called her spouse Christopher Schneider @ [phone] to complete assessment. Patient is a resident at [facility] but is currently at [facility] due to increased weakness. At discharge Christopher said that patient will return to [facility] to complete her rehab and feels this is a safe discharge. Patient is mostly in a wheelchair during the day but is able to transfer and walk with assistance. She requires assistance awiht all ADL's due to her memory. CM will continue to follow and will assist as needed with dc plans/needs. Mold Capper Helper: Diane Acevedo RN, [facility] DCPIA - Discharge Planning Initial Assessment Updated by [email or web address]: Diane Acevedo on 11/05/18 9:59 am * Is the patient Alert and Oriented? No * How many steps to enter\exit or inside your home? none * PCP Dr. Chacho Goodman * Pharmacy [facility] * Preadmission Environment [facility] Care Facility * Facility Name [facility] * ADLs Partial Dependent * Partial ADLs (Assistance needed) Ambulation Bathing Dressing Medication Management Transfers * Equipment Wheelchair * Other Equipment Spouse reports patient is mostly wc bound when up during the day. * List name and contact numbers for known caregivers / representatives who currently or will assist patient after discharge: Christopher Schneider - spouse - [phone] * Verbal permission to speak to the caregivers and representatives has been obtained from the patient. Yes * Community resources currently utilized Assisted Living * Please name any agencies selected above. [facility] for Rehab. Resident [facility] * Additional services required to return to the preadmission environment? No * Can the patient safely return to the preadmission environment? Yes * Has this patient been hospitalized within the prior 30 days at any hospital? Yes Last DP export: 11/07/18 4:46 pm Patient Name: DEVIN SCHNEIDER Page [id number] at 1208 All edits/amendments must be made on the electronic document DICTATION DATE: 11/08/18 1208 RESEARCH AND INSIGHTS EXECUTIVE: CARRIE 11/08/18 1208 RPT#: [id number] DC DATE: STATUS: ADM IN [facility] [address] [place] [address] END OF REPORT
--- NOTE | 2018-11-08 12:17 | MORECARE ---
CASE MANAGEMENT DISCHARGE SUMMARY PATIENT: DEVIN SCHNEIDER UNIT: [id number] ADM DATE: 11/05/18 AGE: 78 : 40 SEX: F ROOM/BED: D.2294 AUTHOR: JULIET GOEL PHYSICIAN: REFERRING PHYSICIAN: ASH GARRISON MD DATE OF SERVICE: 11/08/18 Discharge Plan Patient Name: DEVIN SCHNEIDER Facility: [facility]:[place] : 1940 Planned Disposition: Inpatient Psych Facility Anticipated Discharge Date: 11/07/18 Discharge Date: Expected LOS: 2 Initial Reviewer: [email or web address] Initial Review Date: 11/05/2018 Generated: 11/08/18 1:16 pm Comments DCP- Discharge Planning Updated by [email or web address]: Gabriel Melendrez on 11/08/18 11:[address] Patient Name: DEVIN SCHNEIDER Encounter No: [id number] : 1940 Primary Insurance: MEDICARE A & B Anticipated DC Date: 11-07-2018 Planned Disposition: Inpatient Psych Facility External Planned Provider: [facility] DCP follow-up note: CM SPOKE TO DARREL AT [facility], THEY WILL NOT ACCEPT PT BACK FOR REHAB AT DISCHARGE DUE TO NON COMPLIANCE WITH THERAPY SERVICES. DARREL SUGGESTED [facility] OR A MEMORY CARE UNIT AT DISCHARGE. CM REVIEWED CHART, PT NOT DOING WELL MEDICALLY AT THIS TIME, [facility] CONSULT INDICATES PT MAY BE ACCEPTED IN UNIT WHEN MEDICALLY STABLE. CM TO CONTINUE TO FOLLOW AND ASSIST NEEDED. ZA [place] DCP- Discharge Planning Updated by [email or web address]: Diane Acevedo on 11/05/18 9:[address] Patient Name: DEVIN SCHNEIDER Admission Status: ER Accout number: [id number] Admission Date: 11-05-2018 : 1940 Admission Diagnosis: Attending: ASH GARRISON Current LOS: 1 Anticipated DC Date: 11-07-2018 Planned Disposition: Primary Insurance: MEDICARE A & B Discharge Planning Comments: CM met with patient to complete initial dc planning assessment. CM educated patient on the CM role and patient couldn't stay awake to complete assessment. CM called her spouse Christopher Schneidre @ [phone] to complete assessment. Patient is a resident at [facility] but is currently at [facility] due to increased weakness. At discharge Christopher said that patient will return to [facility] to complete her rehab and feels this is a safe discharge. Patient is mostly in a wheelchair during the day but is able to transfer and walk with assistance. She requires assistance awiht all ADL's due to her memory. CM will continue to follow and will assist as needed with dc plans/needs. Load Mixer: Diane Acevedo RN, [facility] DCPIA - Discharge Planning Initial Assessment Updated by [email or web address]: Diane Acevedo on 11/05/18 9:59 am * Is the patient Alert and Oriented? No * How many steps to enter\exit or inside your home? none * PCP Dr. Chacho Goodman * Pharmacy [facility] * Preadmission Environment [facility] Facility * Facility Name [facility] * ADLs Partial Dependent * Partial ADLs (Assistance needed) Ambulation Bathing Dressing Medication Management Transfers * Equipment Wheelchair * Other Equipment Spouse reports patient is mostly wc bound when up during the day. * List name and contact numbers for known caregivers / representatives who currently or will assist patient after discharge: Christopher Schneider - spouse - [phone] * Verbal permission to speak to the caregivers and representatives has been obtained from the patient. Yes * Community resources currently utilized Assisted Living * Please name any agencies selected above. [facility] for [facility]. Resident [facility] * Additional services required to return to the preadmission environment? No * Can the patient safely return to the preadmission environment? Yes * Has this patient been hospitalized within the prior 30 days at any hospital? Yes Last DP export: 11/08/18 11:08 a Patient Name: DEVIN SCHNEIDER Page [phone] at 1217 All edits/amendments must be made on the electronic document DICTATION DATE: 11/08/181215 ANIMAL ATTENDANTS AND TRAINERS: CARRIE 11/08/181215 RPT#: [id number] DC DATE: STATUS: ADM IN [facility] [address] [place] [address] END OF REPORT
--- NOTE | 2018-11-08 12:56 | NUR ---
OT NOTE: PT IN BED WITH REBREATHER AT 14L. PT EASILY AROUSED AND ASKING QUESTIONS, SHE IS ORIENTED TO SELF ONLY. RE ORIENTED PT; ASSISTED TO EDGE OF BED. PT ABLE TO PERFORM STATIC SITTING WITH SBA; PERFORMED SIT TO STAND WITH MIN ASSIST X 3 TRIALS. PT STATING THROUGHOUT SESSION THAT SHE IS SMOTHERING. S.T OBTAINED PULSE OX AND HER READING WAS 75%. REPOSITIONED PT BACK IN BED WITH HEAD ELEVATED TO 80 DEGREES. O2 REPOSITIONED ON FACE. EDUCATED PT ON USE OF CALL LIGHT, AGAIN, AND IT WAS PLACED IN HER HAND. JANET MARY,OTR/L
--- NOTE | 2018-11-08 14:52 | NUR ---
LEFT FA 22G IV INFILTRATED. DC'D WITH CATH INTACT.
--- NOTE | 2018-11-08 15:19 | NUR ---
RIGHT UPPER ARM 20G IV INSERTED. NS INFUSING AT 15ML/HR.
[2018-11-08 15:54] VITALS: BP 103/64
--- NOTE | 2018-11-08 16:00 | NUR ---
PT WANTED TO BE LAID FLAT. STARTED LAYING PT FLAT AND SHE INSTANTLY DESATED INTO THE 70'S. RAISED HOB BACK UP AND SHE'S NOW IN THE 90'S. AFTER BIPAP WAS PLACED ON PT. I RECEIVED ORDERS TO NOT TAKE OFF BIPAP BECAUSE PT WILL RAPIDLY DESAT.
--- NOTE | 2018-11-08 17:58 | NUR ---
PT'S SON UPSET AND WANTING PT TO EAT AND DRINK PT'S AT BEDSIDE SPOKE WITH ICU NURSE WHO STATED TO HIM BIPAP CAN NOT BE TAKEN OFF. I RESTATED INFORMATION AND DID TEACHING ON BIPAP BEING CRITICAL FOR PT. PT'S SON DISAGREED WITH ME AND WANTED TO SPEAK TO ANOTHER NURSE. OTHER NURSE STATED TO HIM THE SAME THING. HE THEN VERBALIZED UNDERSTANING.
--- NOTE | 2018-11-08 18:21 | NUR ---
spoke with rt and he agreed and stated to me to nott tristin off bipap.
[2018-11-08 20:00] VITALS: BP 118/51
--- NOTE | 2018-11-08 22:56 | NUR ---
PT SLIGHTLY CONFUSED. DISORIENTED TO SITUATION AND TIME. PT HAS CONTINUOUS BIPAP ON. DESAT TO 75 WHILE ON NON-REBREATHER. INFORMED RT AND PT PUT BACK ON BIPAP. FAMILY AT BEDSIDE. QUESTIONS ANSWERED. WILL FOLLOW POC.
[2018-11-09] VITALS: BP 116/61
[2018-11-09 04:00] VITALS: BP 118/56
--- NOTE | 2018-11-09 06:11 | NUR ---
PT CONFUSED THIS AM. HAD DIFFICULTY GETTING THE PT TO TAKE PROTONIX, WOULD NOT SWALLOW. HELD MED. PT MAY NEED SWALLOW STUDY. WILL PASS ON TO ONCOMMING RN.
--- NOTE | 2018-11-09 07:30 | NUR ---
RECEIVED A/A/OX1 TO PERSON ONLY. BIPAP ON AND WORKING PROPERLY. IV PATENT TO R AC. BED IN LOW POSITION, SIDERAILS UP X 2 AND CALL LIGHT IN REACH. ASSESSMENT COMPLETED.
[2018-11-09 07:48] LABS: ALBUMIN 1.6 g/dL (3.4-5.0); ANION GAP 11.5 mmol/L (8-16); BILIRUBIN - TOTAL 0.44 mg/dL (0.2-1.3); CALCIUM 8.4 mg/dL (8.5-10.1); CARBON DIOXIDE 32.6 mmol/L (21.0-32.0); CREATININE - SERUM 1.2 mg/dL (0.6-1.3); POTASSIUM - SERUM 4.1 mmol/L (3.5-5.1); PROTEIN - SERUM 6.2 g/dL (6.4-8.2)
[2018-11-09 07:52] VITALS: BP 121/65
[2018-11-09 07:58] LABS: BASOPHILS 0.1 % (0-2); EOSINOPHILS 6.9 % (0-7); HEMATOCRIT 27.3 % (36.0-48.0); HEMOGLOBIN 8.4 g/dL (12-16); IMMATURE GRANULOCYTES 0.5 % (0-5); MCH 28.2 pg (26.0-34.0); MCHC 30.8 g/dL (31.0-37.0); MCV 91.6 fL (80.0-100.0); MEAN PLATELET VOLUME 10.2 fL (7.4-10.4); MONOCYTES 2.7 % (2-11); NEUTROPHILS 77.8 % (40-80); PLATELET COUNT 315 10x3/uL (130-400); RBC 2.98 10x6/uL (4.00-5.40); WBC 15.6 10x3/uL (4.8-10.8)
--- NOTE | 2018-11-09 09:00 | NUR ---
KEEPS PULLING AT BI PAP MASK AND TRYING TO TAKE IT OFF. RESTLESS AND ANXIOUS. MEDICATED WITH ATIVAN 1 MG IV ORDERED.
--- NOTE | 2018-11-09 10:00 | NUR ---
RESTING QUIETLY AND HAS QUIT PULLING AT MASK. PT HAD INC STOOL, CLEANED AND MEPILEX APPLIED TO COCCYX.
--- NOTE | 2018-11-09 10:57 | NUR ---
SNA AT BS ASSISTING WITH NEEDS. BY-PAP ON. CALL LIGHT IN REACH.
[2018-11-09 14:01] VITALS: BP 115/54
--- NOTE | 2018-11-09 17:30 | NUR ---
DR. AIKEN HERE AND ORDERS RECEIVED TO REMOVE BIPAP AND PLACE ON HIFLOW 02 AT MEALTIMES AND TRY TO FEED PT. SOON SHE WAS TAKEN OFF BI PAP, HER 02 DROPPED TO 73% AND RESP TECH PUT HER BACK ON BIPAP.
--- NOTE | 2018-11-09 19:30 | NUR ---
PT SITTING UP IN BED WITH BIPAP ON. VITALS STABLE. FAMILY AT BEDSIDE. PT DENIES ANY NEEDS OR PAIN AT THIS TIME. WILL CONTINUE TO MONITOR.
--- NOTE | 2018-11-09 19:35 | NUR ---
PT LAYING IN BED WITH BIPAP ON. PT SAT- 96%. PT DENIES ANY NEEDS OR PAIN AT THIS TIME. FAMILY AT BEDSIDE. BED LOW CALL LIGHT WITHIN REACH. WILL CONTINUE TO MONITOR.
[2018-11-09 20:00] VITALS: BP 114/61
--- NOTE | 2018-11-09 22:32 | NUR ---
PT UNABLE TO SIP OUT OF STRAW AND SWALLOW MEDICATION.
[2018-11-10] VITALS: BP 125/63
--- NOTE | 2018-11-10 03:24 | NUR ---
RN NOTE. PATIENT APPEARS TO BE SLEEPING.RESPIRATIONS ARE EVEN AND UNLABORED. NO S/S OF DISTRESS. CALL LIGHT WITHIN REACH. WILL CPOC
[2018-11-10 04:00] VITALS: BP 124/56
[2018-11-10 05:29] LABS: BASOPHILS 0.2 % (0-2); EOSINOPHILS 7.9 % (0-7); HEMATOCRIT 28.2 % (36.0-48.0); HEMOGLOBIN 8.6 g/dL (12-16); IMMATURE GRANULOCYTES 0.5 % (0-5); MCH 28.2 pg (26.0-34.0); MCHC 30.5 g/dL (31.0-37.0); MCV 92.5 fL (80.0-100.0); MEAN PLATELET VOLUME 9.9 fL (7.4-10.4); MONOCYTES 2.7 % (2-11); NEUTROPHILS 76.7 % (40-80); RBC 3.05 10x6/uL (4.00-5.40); WBC 13.1 10x3/uL (4.8-10.8)
[2018-11-10 05:45] LABS: PLATELET COUNT 242 10x3/uL (130-400)
[2018-11-10 06:04] LABS: ALBUMIN 1.6 g/dL (3.4-5.0); BILIRUBIN - TOTAL 0.44 mg/dL (0.2-1.3); CALCIUM 8.3 mg/dL (8.5-10.1); CREATININE - SERUM 1.1 mg/dL (0.6-1.3); PROTEIN - SERUM 6.2 g/dL (6.4-8.2)
[2018-11-10 06:15] LABS: ANION GAP 13.3 mmol/L (8-16); POTASSIUM - SERUM 3.3 mmol/L (3.5-5.1)
--- NOTE | 2018-11-10 07:30 | NUR ---
RECIEVED RESTING ON BACK WITH EYES CLOSED AND BIPAP ON AND WORKING WELL. OPENS EYES WHEN NAME CALLED BUT IS DISORIENTED TO PLACE. TIME AND SITUATION. IV PATENT TO RIGHT AC WITHOUT REDNESS OR EDEMA. ROSADO PATENT AND DRAINING LIGHT MARIAN COLORED URINE. BED IN LOW POSITION WITH SIDERAILS UP X 2 AND CALL LIGHT IN REACH. ASSESSMENT COMPLETED.
[2018-11-10 08:33] VITALS: BP 117/67
--- NOTE | 2018-11-10 10:00 | NUR ---
PT VERY RESTLESS AND PULLING AT BIPAP MASK AND SWATTING AT ME AND RESP THERAPIST. MEDICATED WITH ATIVAN 1 MG IV TO HELP WITH ANXIETY AND RESTLESSNESS.
[2018-11-10 11:57] VITALS: BP 106/63
--- NOTE | 2018-11-10 12:00 | NUR ---
IV IN RIGHT AC INFILTRATED. DC'D WITH TIP INTACT. RESTARTED IN RIGHT HAND WITH 22 GAUGE X 1 ATTEMPT. PT TOLERATED WELL.
--- NOTE | 2018-11-10 13:48 | NUR ---
RN RESOURCE NURSE NOTE:: PT HOB 45. AT BEDSIDE. BIPAP ON. NO S/S OF ACUTE DISTRESS. CL IN PLACE.
--- NOTE | 2018-11-10 15:30 | NUR ---
NEW IV STARTED ON LEFT HAND TO RUN MERREM. IT IS NOT COMPATIBLE WITH THE PROCALAMINE. STARTED WITH 22 GAUGE X 1 ATTEMPT. PT TOLERATED WELL.
[2018-11-10 16:23] VITALS: BP 119/60
--- NOTE | 2018-11-10 17:50 | NUR ---
PLACED ON 50% NON REBREATHER MASK AND PULSE OX RUNNING ANYWHERE FROM 94 TO 97%. HAS TAKEN JUST A FEW BITES OF HER SUPPER.
--- NOTE | 2018-11-10 20:30 | NUR ---
PT RESTING IN BED WITH NON-REBREATHER ON. PT 02 SAT @ 95%. FAMILY AT BEDSIDE. PT DENIES PAIN AT THIS TIME. FAMILY STATES THAT THEY ARE GOING TO STEP AWAY TO HAVE DINNER FOR A MINUTE. AFTER FAMILY LEFT THE FLOOR PT BEGAN TO WANT TO LEAVE THE BED AND BEGAN TO PULL AT HER NON-REBREATHER MASK. INFORMED THE PT THAT SHE NEEDED TO LEAVE THE MASK ON SO SHE COULD GET GOOD OXYGEN. PT AGREED AND SAT BACK IN THE BED. WITHIN 5 MINUTES AFTER LEAVING PT ROOM. NURSE JOHN WENT TO GET PT VITAL SIGNS AND SUMMONDED ME TO ROOM DUE TO PT O2 @ 70% AND PT HAD TAKEN MASK OFF. IMMEDIATELY PUT MASK BACK ON PT. 02 WENT BACK UP TO 85%. RT TO ROOM, BIPAP APPLIED BACK ON PT. O2 IMMEDIATELY BACK UP TO 92%. PT RESTING WITH BIPAP. FAMILY INFORMED OF WHAT HAPPENED WHEN THEY CAME BACK FROM EATING. NO FURTHER CONCERNS AT THIS TIME. CPOC
[2018-11-10 21:33] VITALS: BP 119/65
[2018-11-11 02:08] VITALS: BP 133/74
--- NOTE | 2018-11-11 02:36 | NUR ---
PT YELLING WITH BIPAP ON. PT TRYING TO WIGGLE OUT OF BED. PT ALSO NOTED TRYING TO PULL BIPAP OFF. INFORMED PT THAT SHE HAD TO LEAVE THE MASK ON TO BE ABLE TO BREATH PROPERLY. PT SETTLE DOWN, LIGHTS OFF. RESTING COMFORTABLY NOW. CPOC
--- NOTE | 2018-11-11 04:06 | NUR ---
PT RESTING IN BED WITH RESPS EVEN/NONLABORED. NO DISTRESS. MONITOR AND CPOC.
[2018-11-11 04:54] VITALS: BP 141/72
--- NOTE | 2018-11-11 06:03 | NUR ---
PT SLIDING OUT OF BED AND NOTICED TO BE MESSING WITH BIPAP MASK. INFORMED PT TO LEAVE MASK ON BECUASE IT WAS VERY IMPORTANT FOR HER OXYGEN. REPOSITIONED PT UP IN BED. PT RESTING COMFORTABLY NOW. CPOC.
[2018-11-11 06:14] LABS: BASOPHILS 0.1 % (0-2); HEMOGLOBIN 8.9 g/dL (12-16); IMMATURE GRANULOCYTES 1.3 % (0-5); LYMPHOCYTES 12.5 % (15-50); MCH 28.3 pg (26.0-34.0); MCHC 30.7 g/dL (31.0-37.0); MCV 92.4 fL (80.0-100.0); MEAN PLATELET VOLUME 10.4 fL (7.4-10.4); MONOCYTES 3.7 % (2-11); NEUTROPHILS 80.4 % (40-80); PLATELET COUNT 255 10x3/uL (130-400); RBC 3.14 10x6/uL (4.00-5.40); RDW 14.1 % (11.5-14.5); WBC 14.5 10x3/uL (4.8-10.8)
[2018-11-11 06:28] LABS: ALBUMIN 1.7 g/dL (3.4-5.0); ANION GAP 11.7 mmol/L (8-16); BILIRUBIN - TOTAL 0.4 mg/dL (0.2-1.3); CALCIUM 8.6 mg/dL (8.5-10.1); CARBON DIOXIDE 35.8 mmol/L (21.0-32.0); POTASSIUM - SERUM 3.5 mmol/L (3.5-5.1); PROTEIN - SERUM 6.5 g/dL (6.4-8.2)
--- NOTE | 2018-11-11 08:30 | NUR ---
PT PULLING AT B-PAP MACHINE MOVING AROUND IN BED YELLING TRYED TO CALM PT WILL CHECK FOR PRN MEDS CALL LIGHT IN REACH WILL MONITER
[2018-11-11 08:32] VITALS: BP 95/59
[2018-11-11 12:21] VITALS: BP 128/67
--- NOTE | 2018-11-11 13:30 | NUR ---
PT TRYING TO GET UP HOLDING CATH BAG AND REFUSING TO SIT DOWN PULLING AT ROSADO PT STATED TO ME DONT MAKE ME HURT YOU HER DAUGHTER WAS CALLED AND SHE SAID SHE WOULD COME SIT WITH HER WILL STAY WITH PT TILL HER DAUGHTER ARRIVES
--- NOTE | 2018-11-11 14:00 | NUR ---
DAUGHTER IS WITH PT IN ROOM PT STILL NOT LISTENING TO SAFTEY MEASURES PT IS STATING SHE IS GOING HOME DAUGHTER TRYING TO REORIENTATE CALLED TAISHA VERDIN AND RECIVED AN ORDER FOR PRN HALDOL WILL GIVE ORDERED WILL MOISESER PT
--- NOTE | 2018-11-11 14:15 | NUR ---
ALERT AND CONFUSED TO PLACE, TIME, SITUATION. FAMILY AT BEDSIDE. PETROLOGY TEACHER AT BEDSIDE ENCOURAGING DEEP BREATHING EXERCISES AND COUGHING. ROSA NAVARRETE RESUMES PLAN OF CARE.
--- NOTE | 2018-11-11 14:56 | NUR ---
FAMILY AT BEDSIDE AND SPEECH THERAPY HERE TO DO SWALLOW STUDY
[2018-11-11 16:31] VITALS: BP 130/69
--- NOTE | 2018-11-11 19:18 | NUR ---
REPORT RECEIVED. PT SITTING UP IN BED WITH EYES OPEN, RR EVEN AND UNLABORED. BIPAP IN PLACE ON PT. NO S/S OF DISTRESS. BED IN LOW POSITION. SIDE RAILS UP X2. CALL LIGHT IN REACH. WILL CTM.
[2018-11-11 21:00] VITALS: BP 119/56
[2018-11-12] VITALS (7 sets, daily range): BP systolic 91–132; BP diastolic 52–72
--- NOTE | 2018-11-12 01:18 | NUR ---
PT LYING IN BED WITH EYES CLOSED, RR EVEN AND UNLABORED. BIPAP IN PLACE. NO S/S OF DISTRESS. PEREZ ALARM IN PLACE. CALL LIGHT IN REACH. WILL CTM.
--- NOTE | 2018-11-12 03:37 | NUR ---
PT RESTING COMFORTABLY IN BED WITH EYES CLOSED, RR EVEN AND UNLABORED. BIPAP IN PLACE ORDERED. NO S/S OF DISTRESS. BED ALARM IN PLACE AND TURNED ON. BED IN LOW POSITION. CALL LIGHT IN REACH. WILL CTM.
--- NOTE | 2018-11-12 04:04 | NUR ---
PT RESTING IN BED WITH NO DISTRESS. RESPS NONLABORED. MONITOR AND CPOC. CALL LIGHT IN REACH.
--- NOTE | 2018-11-12 05:37 | NUR ---
ADMINISTERED GEODON ORDERED, PT CONTINUES TO CLIMB OUT OF BED AND REMOVE BIPAP.
--- NOTE | 2018-11-12 10:04 | NUR ---
RESTS IN BED WITH C-PAP ON. CALL LIGHT IN REACH. WILL MONITOR NEEDS.
--- NOTE | 2018-11-12 10:25 | NUR ---
PT KEEPS TAKING OFF BIPAP MACHINE. RT STATES O2 IS NOW IN THE 80%'S. LEFT HAND IV LEKAING AROUND CATHTER. DC'D WITH CATH INTACT. GAVE ATIVAN IN RIGHT HAND 22G IV. THIS NURSE, EMAIL PRODUCER, AND RT HAVE STATED TO PT TO LEAVE MASK ALONE AND THAT SHE HAS TO KEEP IT ON TILL LUNCH. PT STILL PULLING MASK OFF. WILL CONTINUE TO MONITOR.
[2018-11-12 11:42] LABS: ALBUMIN 1.7 g/dL (3.4-5.0); ANION GAP 8.5 mmol/L (8-16); BILIRUBIN - TOTAL 0.46 mg/dL (0.2-1.3); CALCIUM 8.8 mg/dL (8.5-10.1); CARBON DIOXIDE 34.9 mmol/L (21.0-32.0); CREATININE - SERUM 1.1 mg/dL (0.6-1.3); POTASSIUM - SERUM 3.4 mmol/L (3.5-5.1); PROTEIN - SERUM 6.7 g/dL (6.4-8.2)
[2018-11-12 12:14] LABS: HEMATOCRIT 31.3 % (36.0-48.0); HEMOGLOBIN 9.5 g/dL (12-16); MCH 27.9 pg (26.0-34.0); MCHC 30.4 g/dL (31.0-37.0); MCV 92.1 fL (80.0-100.0); MEAN PLATELET VOLUME 10.9 fL (7.4-10.4); PLATELET COUNT 247 10x3/uL (130-400); RDW 13.9 % (11.5-14.5); WBC 16.6 10x3/uL (4.8-10.8)
--- NOTE | 2018-11-12 12:33 | NUR ---
PT SAT O2 AT 93% ON BIPAP. TOOK PT OFF BIPAP AND PLACED ON NONBREATEHR AT 15L O2 SAT 89%. TRIED TO FEED PT AND START WITH SIP OF TEA PT KEPT PUSHING IT AWAY AND O2 SAT DROPPED T0 68%. PLACED NON REBREATEHR ON PT AND O2 SAT WENT UP TO 76%. STATED TO PT'S HER O2 SAT IS TOO LOW RIGHT NOW. WE CAN TRY TO FEED HER LATER. HE VERBALIZED UNDERSTANDING. PLACED PT BACK ON BIPAP MACHINE AND O2 SAT IS NOW AT 91%. WILL CONTINUE TO MONITOR.
[2018-11-12 12:37] LABS: EOSINOPHILS 1 % (0-7); LYMPHOCYTES 8 % (15-50); MONOCYTES 5 % (2-11); NEUTROPHILS 77 % (40-80); PLATELET ESTIMATE NORMAL
--- NOTE | 2018-11-12 15:17 | NUR ---
PT RECEIVED BED BATH AND FULL LINEN CHANGE.
--- NOTE | 2018-11-12 16:05 | NUR ---
PT KEEPS PULLING GOWN AND BIPAP MACHINE OFF. WILL KEEP TRYING TO REORIENT PT.
--- NOTE | 2018-11-12 16:44 | NUR ---
OT NOTE: LIMITED FUNCTIONAL ACT DUE TO PT ON BI PAP. ROM EXS TO UES AT THIS TIME. WILL PROGRESS TOLERATED JANET MARY, OTR/L
--- NOTE | 2018-11-12 17:26 | NUR ---
OT NOTE: PT COMPLETED BUE PROM. PT COMPLETED BED MOB WITH MOD A. THANK YOU, TONEY PEREZ
--- NOTE | 2018-11-12 17:33 | NUR ---
PT CALM DOWN AND EYES CLOSED. CHEST RISING AND FALLING. SPOKE WITH PT' SHUSBAND AND WE BOTH AGREED TO NOT WAKE PT TO TRY TO FEED SINCE SHE IS FINALLY RESTING.
--- NOTE | 2018-11-12 20:00 | NUR ---
RECIEVED BEDSIDE REPORT. PT VSS, IN BED WITH EYES CLOSE. BUT PT TRIES TO PULL BI-PAP FROM HER FACE. WILL CONTINUE TO REORIENT PT. PT RESTLESS AND UNCORPERATIVE. WILL CTM. SPOUSE AT BEDSIDE. WILL CONTINUE POC. CL IN REACH, BED IN LOW. BED ALARM ON.
[2018-11-13 03:55] VITALS: BP 121/61
[2018-11-13 05:53] LABS: BASOPHILS 0.5 % (0-2); EOSINOPHILS 5.3 % (0-7); HEMATOCRIT 32.6 % (36.0-48.0); HEMOGLOBIN 9.9 g/dL (12-16); IMMATURE GRANULOCYTES 3.6 % (0-5); LYMPHOCYTES 14.9 % (15-50); MCH 28.4 pg (26.0-34.0); MCHC 30.4 g/dL (31.0-37.0); MCV 93.4 fL (80.0-100.0); MEAN PLATELET VOLUME 10.9 fL (7.4-10.4); MONOCYTES 3.4 % (2-11); NEUTROPHILS 72.3 % (40-80); PLATELET COUNT 272 10x3/uL (130-400); RBC 3.49 10x6/uL (4.00-5.40); RDW 14.1 % (11.5-14.5); WBC 16.5 10x3/uL (4.8-10.8)
[2018-11-13 06:21] LABS: ALBUMIN 1.7 g/dL (3.4-5.0); ANION GAP 8.6 mmol/L (8-16); BILIRUBIN - TOTAL 0.48 mg/dL (0.2-1.3); CARBON DIOXIDE 36.8 mmol/L (21.0-32.0); CREATININE - SERUM 1.1 mg/dL (0.6-1.3); PHOSPHOROUS 2.6 mg/dL (2.5-4.9); POTASSIUM - SERUM 3.4 mmol/L (3.5-5.1); PROTEIN - SERUM 6.9 g/dL (6.4-8.2)
--- NOTE | 2018-11-13 07:30 | NUR ---
SPOKE WITH MOY FROM PHARMACY AND SHE STATES YOU CAN Y-SITE IV POTASSIUM AND PROCALAMINE.
[2018-11-13 08:39] VITALS: BP 109/61
--- NOTE | 2018-11-13 09:49 | NUR ---
RESTS WITH EYES CLOSED. IV PATENT. C-PAP ON. CALL LIGHT IN REACH. WILL MONITOR NEEDS.
--- NOTE | 2018-11-13 09:55 | NUR ---
PT AWAKE AND PULLING ON BIPAP AND REMOVING IT. ATIVAN GIVEN.
--- NOTE | 2018-11-13 10:35 | NUR ---
ABBIE VERDIN STATES SHE WILL NOT INCREASE ATIVAN FROM Q6HP TO Q4HP.
--- NOTE | 2018-11-13 12:07 | NUR ---
PT O2 SAT IS 100% ON BIPAP. ASKED PT IF SHE IS READY TO EAT LUNCH AND SHE STATED "NO." ASKED PT IF SHE WANTS TO TRY TO EAT AND SHE STATED "NO." ASKED HER IF SHE WANTS TO DRINK AND SHE STATED "YES." ASKED PT IF SHE WANTS ICE WATER AND SHE STATED "YES."
--- NOTE | 2018-11-13 12:21 | NUR ---
TOOK PT OFF BIPAP AT SAT 91% ON ON REBREATHER ALL THEY WAY UP. TRIED TO GIVE PT MOUTH SWAB AND O2 SAT 88%. ASKED PT IF SHE WANTS TO EAT AND SHE STATES "NO!" ASKED HER IF SHE WILL TRY AND DRINK SOME WATER AND SHE REFUED AGAIN STATING "NO!". O2 SAT NOW 83% ON NON REBREATHER. PT BACK UP TO 89%. PLACED CHAPSTICK ON PT'S LIPS. TRIED GIVING PT WATER AGAIN AND SHE REFUSED O2 SAT DROPPED TO 82% PLACED PT BACK ON BIPAP AND O2 SAT NOW AT 94%. PT STARTING TO GET SORE ON TOP OF RIGHT NARE FROM BIPAP. TRIED LOOSEING BIPAP.
[2018-11-13 12:22] VITALS: BP 133/64; BP 139/67
--- NOTE | 2018-11-13 12:39 | NUR ---
ROSELINE RAMIREZ AND STATED TO HER PT IS STARTING TO GET A SORE ON TOP OF RIGHT NARE SHE STATED SHE WILL BRING SOME STUFF UP TO PUT ON IT.
--- NOTE | 2018-11-13 12:49 | NUR ---
WHEN TRYING TO SPONGE PT'S MOUTH WHEN TRYING TO FEED HER LUNCH PT HAD LEFT OVER MUCINEX FROM LAST NIGHT MED PASS. PT COULD BARELY OPEN MOUTH AND COULD NOT FIT GREEN MOUTH SWAB IN PT'S MOUTH. PT CAN NOT TOLERATE ANY CRUSHED MEDS AT THIS POINT.
--- NOTE | 2018-11-13 13:22 | NUR ---
PT'S STATING TO ME THAT PT WANTS WATER NOW AND HE WANTS ME TO TAKE HER OFF THE BIPAP. I CHECKED PT'S PULSE OX AND SHE'S BARELY AT 91%. I STATED TO HIM I CAN'T TAKE HER OFF AGAIN RIGHT NOW. I ALSO STATED TO HIM ASHLEY POP IS SUPPOSSED TO COME UP HERE AND PUT STUFF AROUND PT'S FACE AND WE CAN TRY THEN. HE VERBALIZED UNDERSTANDING.
--- NOTE | 2018-11-13 15:01 | EC ---
PATIENT:DEVIN MABRY DATE OF SERVICE: 11/05/18 SEX: F MEDICAL RECORD: [id number] DATE OF : 40 LOCATION:D.M2 D.213 AGE OF PATIENT: 78 ADMISSION DATE: 11/05/18 REFERRING PHYSICIAN: INTERPRETING PHYSICIAN: THOMAS STEELE MD ECHOCARDIOGRAM REPORT ECHO CHARGES 4 ECHO COMPLETE Date: 11/11/18 CLINICAL DIAGNOSIS: CHF ? ECHOCARDIOGRAPHIC MEASUREMENTS (adult normal given) AC root (d.<3.7cm) 3.0 cm LV Septum d (<1.2 cm> 1.2 cm Valve Excursion 1.8 cm LV Septum (systole) 1.7 cm Left Atria (s.<4.0cm> 3.7 cm LVPW d(<1.2cm) 1.2 cm RV (d.<2.3cm) 2.7 cm LVPW (sytole) 1.7 cm LV diastole(<5.6CM) 4.2 cm MV E-F(>70mm/sec) cm LV systole 2.1 cm LVOT Diameter 1.7 cm MV exc.(>10mm) cm Est.ejection fraction (50-75%) % DOPPLER: LVIT cm/sec A 102 cm/sec E 66.0 cm/sec LA cm/sec RVSP 55.0 mmHg LVOT 115 cm/sec AOP1/2T m/s Asc. Ao 160 cm/sec RVOT 55.0 cm/sec RA cm/sec PA 101 cm/sec AV Gradient Peak 10.3 mmHg AV Mean 4.6 mmHg AV Area 1.5 cm MV Gradient Peak 4.5 mmHg MV Mean 1.6 mmHg MV Area cm COMMENTS: Utility Locator: Bren CORRIGANOE Ct Technician: 3 Dr. Mitchell TAPE# PACS Pericardial Effusion N DATE OF SERVICE: 11/12/2018 Adequate 2D echo, color flow and spectral Doppler and M-Mode LVH is present. LV internal dimension are normal. Wall motion is normal. EF is greater than or equal to 55%. Aortic valve is tricuspid. No evidence of stenosis by Doppler interrogation. Left atrium is normal. Mitral valve shows no prolapse. Trace MR. Right-sided chambers appear grossly normal. Trace TR. TRANSINT:[id number] Voice Confirmation ID: [id number] DOCUMENT ID: [id number] ECHOCARDIOGRAM REPORT [id number] DEVIN MABRY GREGORY A MD at 1501 CC: [id number] DICTATION DATE: 11/12/18 1038 WELL REACTIVATOR OPERATOR: 11/12/18 1334 ADM IN [facility] [address] [id number]
[2018-11-13 17:04] VITALS: BP 145/64
[2018-11-13 19:00] VITALS: BP 122/63
--- NOTE | 2018-11-13 20:30 | NUR ---
SUPINE IN ROOM, EYES CLOSED, CHEST RISE NOTED, BIPAP IN USE. DOES NOT RESPOND TO VERBAL STIMULATION OR TOUCH. NO S/X OF DISTRESS. WILL MONITOR CLOSELY.
--- NOTE | 2018-11-13 21:15 | NUR ---
WHITE KID BUFFER STATES PT WOULD NOT WAKE WHILE ASSESSING VITALS. OTHER NURSE NOTIFIED. PT RESPONDED TO OTHER NURSE SPONTANEOUSLY, THEN PROCEEDED TO CLOSE EYES. WILL CONTINUE TO MONITOR.
[2018-11-14] VITALS: BP 108/61
[2018-11-14 04:00] VITALS: BP 133/60
[2018-11-14 07:31] LABS: ALBUMIN 1.7 g/dL (3.4-5.0); ANION GAP 8.8 mmol/L (8-16); BILIRUBIN - TOTAL 0.44 mg/dL (0.2-1.3); CALCIUM 8.5 mg/dL (8.5-10.1); CARBON DIOXIDE 34.3 mmol/L (21.0-32.0); CREATININE - SERUM 1.2 mg/dL (0.6-1.3); POTASSIUM - SERUM 4.1 mmol/L (3.5-5.1); PROTEIN - SERUM 6.3 g/dL (6.4-8.2)
[2018-11-14 07:41] LABS: BASOPHILS 0.3 % (0-2); EOSINOPHILS 0 % (0-7); HEMATOCRIT 30.1 % (36.0-48.0); HEMOGLOBIN 9.1 g/dL (12-16); IMMATURE GRANULOCYTES 2.8 % (0-5); LYMPHOCYTES 9.7 % (15-50); MCH 27.8 pg (26.0-34.0); MCHC 30.2 g/dL (31.0-37.0); MEAN PLATELET VOLUME 11.3 fL (7.4-10.4); MONOCYTES 1.3 % (2-11); NEUTROPHILS 85.9 % (40-80); PLATELET COUNT 301 10x3/uL (130-400); RBC 3.27 10x6/uL (4.00-5.40); RDW 14.3 % (11.5-14.5); WBC 14.5 10x3/uL (4.8-10.8)
[2018-11-14 08:08] VITALS: BP 120/62
[2018-11-14 11:08] VITALS: BP 134/66
--- NOTE | 2018-11-14 14:11 | NUR ---
Nutrition follow-up: Diet: mechanical soft regular with thin liquids per speech Pt with no po intake due to breathing mask in place and O2 sats drop low when taken off only a few minutes ProcalAmine PPN discontinued Wt: 157# Pt not meeting estimated energy needs since admit If medically feasible, pt needs PEG tube placed and nutrition support started now. RDN following.
[2018-11-14 15:37] VITALS: BP 126/60
--- NOTE | 2018-11-14 18:03 | NUR ---
CORRECTION: INSULIN GIVEN TO FOR BS OF 371 WAS 10 UNITS. NOT 154 WITH 4 UNITS GIVEN.
--- NOTE | 2018-11-14 19:31 | NUR ---
REC'D IN BED WITH EYES CLOSED WITGH BIPAP IN USE. RESP EVEN AND UNLABORED WITH NO DISTRESS NOTED. NO C/O PAIN OR DISCOMFORT NOTED OR VOICED. ASSESSMENT COMPLETED. C/L IN REACH AT BEDSIDE.
--- NOTE | 2018-11-14 19:45 | NUR ---
RESUMING CARE. PT IS RESTING IN BED COMFORTABLY WITH EYES CLOSED. IS AT BEDSIDE. NO C/O VOICED AT THIS TIME. BED IN THE LOWEST POSITION WITH CALL LIGHT IN REACH. SIDE RAILS UP X 2. WILL CONTINUE TO MONITOR PT AND FOLLOW PLAN OF CARE.
[2018-11-14 21:09] VITALS: BP 141/60
--- NOTE | 2018-11-14 23:38 | NUR ---
LYING IN BED WITH CALL LIGHT IN REACH. WILL CONTINUE TO MONITOR.
[2018-11-15] VITALS: BP 147/73
--- NOTE | 2018-11-15 00:32 | NUR ---
PT HAD A VAPO THERM IN USE. PT KEPT PULLING NASAL CANNULA OUT HER NOSE. HER PULSE OX WAS AT 68 DUE TO HER PULLING NASAL CANNULA OUT OF HER NOSE. RESPIRATORY PUT PT BACK ON BYPAP MACHINE AND PULSE OX IS AT 84. WILL CONTINUE TO MONITOR PT AND FOLLOW PLAN OF CARE. BED IN THE LOWEST POSITION WITH CALL LIGHT IN REACH. AND SIDE RAILS UP X 2.
--- NOTE | 2018-11-15 01:25 | NUR ---
DR. GILLESPIE WAS CALLED AND NOTIFIED THAT PT WAS TAKEN OFF THE VAPO THERM AND PUT BACK ON THE BY PAP MACHINE
[2018-11-15 04:00] VITALS: BP 130/66
--- NOTE | 2018-11-15 04:54 | NUR ---
PT LAYING IN BED WITH EYES CLOSED RESTING COMFORTABLY. BED IN LOW POSITION WITH CALL LIGHT IN REACH. SIDE RAILS UP X 2. WILL CONTINUE TO MONITOR PT AND FOLLOW PLAN OF CARE.
[2018-11-15 05:49] LABS: ALBUMIN 1.8 g/dL (3.4-5.0); ANION GAP 10.7 mmol/L (8-16); BILIRUBIN - TOTAL 0.49 mg/dL (0.2-1.3); CALCIUM 8.4 mg/dL (8.5-10.1); CARBON DIOXIDE 31.8 mmol/L (21.0-32.0); CREATININE - SERUM 1.1 mg/dL (0.6-1.3); POTASSIUM - SERUM 3.5 mmol/L (3.5-5.1); PROTEIN - SERUM 6.2 g/dL (6.4-8.2)
[2018-11-15 06:00] LABS: HEMOGLOBIN 8.5 g/dL (12-16); MCH 27.7 pg (26.0-34.0); MCHC 30.4 g/dL (31.0-37.0); MCV 91.2 fL (80.0-100.0); MEAN PLATELET VOLUME 11.1 fL (7.4-10.4); PLATELET COUNT 360 10x3/uL (130-400); RBC 3.07 10x6/uL (4.00-5.40); RDW 14.5 % (11.5-14.5); WBC 23.7 10x3/uL (4.8-10.8)
--- NOTE | 2018-11-15 07:30 | NUR ---
RECEIVED A/A/OX1 TO PERSON ONLY. BIPAP ON AND OPERATING PROPERLY. PT IS A LITTLE RESTLESS AND TRYING TO YELL OUT. TALKED WITH PT AND CALMED HER DOWN SOME TO WHERE SHE IS RESTING QUIETLY AT THIS TIME. ROSADO IN PLACE BUT HAD SOME URINE ON BOTTOM SHEET AND PADS. CLEANED AND MEPILEX PAD PLACED ON COCCYX. LEFT HEEL WITH SCABBED SORE AND RIGHT HEEL SLIGHTLY SPONGY. BOTH HEELS FLOATED ON PILLOW. NO APPARENT NEW NEEDS AT THIS TIME.
[2018-11-15 07:49] VITALS: BP 129/68
[2018-11-15 07:51] LABS: ANISOCYTOSIS OCC; LYMPHOCYTES 10 % (15-50); MONOCYTES 7 % (2-11); NEUTROPHILS 82 % (40-80); PLATELET ESTIMATE NORMAL
[2018-11-15 07:52] LABS: HYPOCHROMASIA OCC
--- NOTE | 2018-11-15 10:22 | NUR ---
VISITING WITH FAMILY.
[2018-11-15 11:00] VITALS: BP 126/71
--- NOTE | 2018-11-15 12:42 | NUR ---
C/O OF PAIN IN RIGHT HAND AT IV SITE AND IS SLIGHTLY RED AND SWOLLEN. IV DC'D AND RESTARTED IN OUTER RIGHT WRIST WITH 22 GAUGE X 1 ATTEMPT. PT TOLERATED WELL. WHEN ASKED IF IT WAS HURTING SHE SAID NO. RESP THERAPY HERE TO ATTEMPT PUTTING PT ON HIGH FLOW NC FOR MEAL. AT BEDSIDE.
--- NOTE | 2018-11-15 12:56 | NUR ---
RT ATTEMPTED TO PUT PT ON HIGH FLOW NC AND UNABLE TO TOLERATE. SAT IMMEDIATELY DROPPED TO 78%. PLACED BACK ON BIPAP.
--- NOTE | 2018-11-15 13:15 | NUR ---
BI PAP BEEPING AND WHEN LOOKED IN ROOM PT HAD HER LEGS OVER THE SIDE OF THE BED ON RIGHT SIDE AND WAS LEANING OVER OFF THE BED TRYING TO GET OUT. VERY RESTLESS AND FIGHTING BI PAP. GIVEN GEODON 10 MG IM TO HELP WITH AGITATION.
--- NOTE | 2018-11-15 15:06 | NUR ---
BIPAP ALARMING. WENT INTO ROOM AND HAD MASK OFF AND LAYING SIDEWAYS IN THE BED. MASK PLACED BACK ON PT AND RESP CALLED TO CHECK PLACEMENT. ADJUSTING IN THE BED AND ATIVAN 1 MG GIVEN IV TO HELP CALM HER. AT BEDSIDE.
[2018-11-15 17:02] VITALS: BP 133/71
[2018-11-15 20:00] VITALS: BP 151/76
--- NOTE | 2018-11-15 20:20 | NUR ---
RESUMING CARE. PT IS LAYING IN BED WITH EYES CLOSED RESTING COMFORTABLY. FAMILY AT BEDSIDE. BED IN THE LOWEST POSITION WITH CALL LIGHT IN REACH. WILL CONTINUE TO MONITOR PT AND FOLLOW PLAN OF CARE.
[2018-11-16] VITALS (7 sets, daily range): BP systolic 106–144; BP diastolic 52–73
--- NOTE | 2018-11-16 03:00 | NUR ---
PT WAS TRYING TO PULL OFF BYPASS MASK. PT WAS VERY ANXIOUS AND AGITATED. SO ATIVAN 1MG WAS GIVEN.
--- NOTE | 2018-11-16 04:35 | NUR ---
COMBATANT SWIMMER AT BEDSIDE TO OBTAIN VITALS, CALL LIGHT IN REACH. WILL CONTINUE WITH PLAN OF CARE.
--- NOTE | 2018-11-16 07:30 | NUR ---
RECEIVED A/A/OX1 TO PERSON ONLY. PULLING AT 02 MASK. BED IN LOWEST POSITION WITH SIDERAILS UP X 3. CALL LIGHT IN REACH. LEFT HEEL PRESSURE SORE WITH HEELS FLOATED ON PILLOW. IV PATENT TO RIGHT OUTER WRIST WITH IVF INFUSING WELL. ASSESSMENT COMPLETED.
[2018-11-16 09:19] LABS: HEMOGLOBIN 10.1 g/dL (12-16); MCH 28.1 pg (26.0-34.0); MCHC 30.6 g/dL (31.0-37.0); MCV 91.7 fL (80.0-100.0); MEAN PLATELET VOLUME 11.3 fL (7.4-10.4); PLATELET COUNT 406 10x3/uL (130-400); RDW 14.4 % (11.5-14.5); WBC 24.5 10x3/uL (4.8-10.8)
[2018-11-16 09:30] LABS: ALBUMIN 2.2 g/dL (3.4-5.0); BILIRUBIN - TOTAL 0.76 mg/dL (0.2-1.3); CALCIUM 8.6 mg/dL (8.5-10.1); CARBON DIOXIDE 30.2 mmol/L (21.0-32.0); CREATININE - SERUM 1.3 mg/dL (0.6-1.3); POTASSIUM - SERUM 4.2 mmol/L (3.5-5.1); PROTEIN - SERUM 6.8 g/dL (6.4-8.2)
[2018-11-16 10:09] LABS: LYMPHOCYTES 9 % (15-50); MONOCYTES 3 % (2-11); NEUTROPHILS 83 % (40-80); PLATELET ESTIMATE INCREASED
[2018-11-16 10:10] LABS: ANISOCYTOSIS OCC
--- NOTE | 2018-11-16 10:24 | NUR ---
RESTS IN BED WITH C-PAP ON. CALL LIGHT IN REACH. WILL MONITOR NEEDS.
--- NOTE | 2018-11-16 20:00 | NUR ---
RESUMING CARE. PT IS LAYING IN BED WITH EYES CLOSED RESTING COMFORTABLE AT THIS TIME. NO SIGNS OF DISTRESS AT THIS TIME. BED IN THE LOWEST POSITION WITH CALL LIGH IN REACH. SIDE RAIL UP X3. WILL CONTINUE TO MONITOR PT
--- NOTE | 2018-11-16 22:00 | NUR ---
I CALLED PT TO VERTIFY THE DNR ORDER. WHAT WAS THE WISH FOR HIS . STATED THAT SHE DID NOT WANT CPR PERFROM. DID STATE HE WAS WAITING TO HEAR FROM A HOSPICE CONSULT. AND THAT DR. GILLESPIE PUT PT ON COMFORT MEASURES.
--- NOTE | 2018-11-17 01:12 | NUR ---
PT WAS GIVEN 1MG OF MORPHINE FOR AIR HUNGER.WILL COONTINUE TO MONITOR PT AND FOLLOW PLAN OF CARE
[2018-11-17 03:55] VITALS: BP 103/44
--- NOTE | 2018-11-17 04:21 | NUR ---
RN NOTE: PATIENT RESTING COMFORTABLY AT THIS TIME. ORDER IS IN TO CONSULT HOSPICE. PATIENT O2 STAT 51 ON A NONREBREATHER AT 100%. PATIENT RESPIRATIONS ARE SHALLOW. PATIENT RECEIVING MORPHINE Q 1HR PRN FOR DISCOMFORT. FAMILY AT BEDSIDE. PER BACK WINDER PATIENT IS RECEIVING COMFORT MEASURE. CALL LIGHT WITHIN REACH. WILL CPOC.
[2018-11-17 05:29] LABS: BASOPHILS 0.2 % (0-2); EOSINOPHILS 0 % (0-7); HEMATOCRIT 35.5 % (36.0-48.0); HEMOGLOBIN 10.4 g/dL (12-16); LYMPHOCYTES 7.6 % (15-50); MCH 27.4 pg (26.0-34.0); MCHC 29.3 g/dL (31.0-37.0); MCV 93.4 fL (80.0-100.0); MEAN PLATELET VOLUME 11.5 fL (7.4-10.4); MONOCYTES 5.4 % (2-11); NEUTROPHILS 84.8 % (40-80); PLATELET COUNT 425 10x3/uL (130-400); RDW 15.1 % (11.5-14.5); WBC 21.8 10x3/uL (4.8-10.8)
[2018-11-17 05:44] LABS: ANION GAP 16.4 mmol/L (8-16); CALCIUM 8.5 mg/dL (8.5-10.1); CARBON DIOXIDE 30.6 mmol/L (21.0-32.0); CREATININE - SERUM 1.6 mg/dL (0.6-1.3)
--- NOTE | 2018-11-17 06:10 | NUR ---
PT HAS BEEN STRUGGLING TO BREATH. ORDERED THAT MORPHINE 1MG CAN BE GIVEN EVERY HOUR PRN.
--- NOTE | 2018-11-17 07:23 | NUR ---
YANETH PHYSICAL THERAPY NURSE SAID Pt'S HEART RATE WAS DROPPING. WENT INTO ROOM Pt WAS NOT BREATHING. CHECKED CAROTID, RAIDAL AND APICAL PULSE. NO PULSE NOTED. Pt IS A DNR. NOTIFIED MELI HE ASKED ME TO CALL ER DOCTOR TO PRNOUNCE HER. NIGHT NURSE CALLED TO INFORM HIM.
--- NOTE | 2018-11-19 09:15 | MORECARE ---
CASE MANAGEMENT DISCHARGE SUMMARY PATIENT: DEVIN SCHNEIDER UNIT: [id number] ADM DATE: 11/05/18 AGE: 78 : 40 SEX: F ROOM/BED: D.6524 AUTHOR: AMANDO,DOC PHYSICIAN: REFERRING PHYSICIAN: ASH GARRISON MD DATE OF SERVICE: 11/19/18 Discharge Plan Patient Name: DEVIN SCHNEIDER Facility: [facility]:[place] : 1940 Planned Disposition: Anticipated Discharge Date: 11/17/18 Discharge Date: 11/17/2018 Expected LOS: 12 Initial Reviewer: [email or web address] Initial Review Date: 11/05/2018 Generated: 11/19/18 10:15 am Comments DCP- Discharge Planning Updated by [email or web address]: Gabriel Melendrez on 11/08/18 11:[address] Patient Name: DEVIN SCHNEIDER Encounter No: [id number] : 1940 Primary Insurance: MEDICARE A & B Anticipated DC Date: 11-07-2018 Planned Disposition: Inpatient Psych Facility External Planned Provider: [facility] DCP follow-up note: CM SPOKE TO DARREL AT [facility], THEY WILL NOT ACCEPT PT BACK FOR REHAB AT DISCHARGE DUE TO NON COMPLIANCE WITH THERAPY SERVICES. DARREL SUGGESTED [facility] OR A MEMORY CARE UNIT AT DISCHARGE. CM REVIEWED CHART, PT NOT DOING WELL MEDICALLY AT THIS TIME, [facility] CONSULT INDICATES PT MAY BE ACCEPTED IN UNIT WHEN MEDICALLY STABLE. CM TO CONTINUE TO FOLLOW AND ASSIST NEEDED. ZA CLINTON DCP- Discharge Planning Updated by [id number]: Diane Acevedo on 11/05/18 9:[address] Patient Name: DEVIN SCHNEIDER Admission Status: ER Accout number: [id number] Admission Date: 11-05-2018 : 1940 Admission Diagnosis: Attending: ASH GARRISON Current LOS: 1 Anticipated DC Date: 11-07-2018 Planned Disposition: Primary Insurance: MEDICARE A & B Discharge Planning Comments: CM met with patient to complete initial dc planning assessment. CM educated patient on the CM role and patient couldn't stay awake to complete assessment. CM called her spouse Christopher Schneider @ [phone] to complete assessment. Patient is a resident at [facility] but is [facility] at [facility] due to increased weakness. At discharge Christopher said that patient will return to [place] to complete her rehab and feels this is a safe discharge. Patient is mostly in a wheelchair during the day but is able to transfer and walk with assistance. She requires assistance awiht all ADL's due to her memory. CM will continue to follow and will assist as needed with dc plans/needs. Relief Driller: Diane Acevedo RN, [facility] DCPIA - Discharge Planning Initial Assessment Updated by [email or web address]: Diane Acevedo on 11/05/18 9:59 am * Is the patient Alert and Oriented? No * How many steps to enter\exit or inside your home? none * PCP Dr. Chacho Goodman * Pharmacy [place] * Preadmission Environment Retirement Facility * Facility Name [facility] * ADLs Partial Dependent * Partial ADLs (Assistance needed) Ambulation Bathing Dressing Medication Management Transfers * Equipment Wheelchair * Other Equipment Spouse reports patient is mostly wc bound when up during the day. * List name and contact numbers for known caregivers / representatives who currently or will assist patient after discharge: Christopher Schneider - spouse - [phone] * Verbal permission to speak to the caregivers and representatives has been obtained from the patient. Yes * Community resources currently utilized Assisted Living * Please name any agencies selected above. [facility] for Rehab. Resident [facility] * Additional services required to return to the preadmission environment? No * Can the patient safely return to the preadmission environment? Yes * Has this patient been hospitalized within the prior 30 days at any hospital? Yes Last DP export: 11/08/18 11:17 a Patient Name: DEVIN SCHNEIDER Page [id number] at 0915 All edits/amendments must be made on the electronic document DICTATION DATE: 11/19/18914 INSERTING MACHINE OPERATOR: CARRIE 11/19/18914 RPT#: [id number] DC DATE:11/17/18 STATUS: DIS IN [id number] [place] [address] END OF REPORT
== END 2018-11-17 10:50 | DRG 177 ==
LOC: D.ER 01:26 → D.WS 03:08 → D.EDHOLD 03:08 → D.M2 03:08 → D.EDHOLD 09:22 → D.WS 11:59 → D.M2 18:19
PROVIDERS: Emergency Medicine; Family Medicine; ADMIT Internal Medicine Nephrology
DX: J69.0 Pneumonitis due to inhalation of food and vomit (principal); J96.01 Acute respiratory failure with hypoxia; F02.81 Dementia in other diseases classified elsewhere, unspecified severity, with behavioral disturbance; I50.22 Chronic systolic (congestive) heart failure; E87.1 Hypo-osmolality and hyponatremia; J18.1 Lobar pneumonia, unspecified organism; G30.1 Alzheimer's disease with late onset; E11.65 Type 2 diabetes mellitus with hyperglycemia; E03.9 Hypothyroidism, unspecified; E78.5 Hyperlipidemia, unspecified; K21.9 Gastro-esophageal reflux disease without esophagitis; F41.8 Other specified anxiety disorders